=== PATIENT | male | born 1955 | race Caucasian/White ===

== ENCOUNTER 2025-04-14 08:58 | Outpatient (AMB) | payer MEDICARE, SELFPAY ==
--- OUTSIDE RECORDS SUMMARY | 2025-04-14 09:16 | XMS_ITS | Encounter Summary ---
Author Organization [facility] Address [address] [place] [address] Care Team Providers Care Communications Station Manager Name Role Phone Maximino William MD Primary Care Provider [phone] Maximino William MD Unavailable [phone] Bill Quintero Unavailable Jesus Manuel Duncan Unavailable Santhosh Lockhart Unavailable Unavailable Jasiel Eleuterio Unavailable Hemachjoyce Ali Unavailable Encounter Details Date Type Department Care Team (Late st Contact Info) Description 01/15/2012 Orders Only [facility] [address] [place], [place] [address] Maximino William MD [address] [place] [address] Social History Tobacco Use Types Packs/Day Years Used Date Smoking Tobacco: Never Assessed Sex and Gender Information Value Date Recorded Sex Assigned at Male 03/31/2024 9:17 AM EDT Legal Sex Male 11:04 PM EDT Gender Identity Male 06/03/2023 11:04 PM EDT Sexual Orientation Straight 03/31/2024 9: 17 AM EDT documented as of this encounter Procedure Notes * Maximino William - 01/15/2012 7:50 AM EDT Staff Communication MRI LS DJD - Renal cyst - will request for renal ultrasound Signatures Electronically signed by : Maximino William M.D.; Jan 15 2012 7:51AM (Author) documented in this encounter Plan of Treatment Upcoming Encounters Date Type Department Care Team (Late st Contact Info) Description 09/19/2025 9:45 AM EST Office Visit [facility] Primary Care [address] [place] [address], [place] [address] Maximino William MD [address] [place] [address] Return in about 6 months (around 09/16/2025) for Follow up, dyslipidemia, Hypertension. documented as of this encounter Visit Diagnoses Not on filedocumented in this encounter Care Teams Communications Station Manager Relationship Specialty Start Date End Date Maximino William MD [address] [place] [address], [place] [address] PCP - General 04/06/23 Maximino William MD [address] [place] [address], [place] [address] PCP - Backup PCP Internal Medicine 09/30/23 Bill Quintero [address] [place] [address] Cardiology 03/23/24 Jesus Manuel Duncan [address] [place] [address] Nephrology 03/23/24 Santhosh Lockhart [address] [place] [address] Urology 03/23/24 Eleuterio Weathers [address] [place] [address] [address] [place] [address] Optometry 10/31/24 Collette Hall [address] [place] [address] [address] [place] [address] Gastroenterology 03/16/25 documented as of this encounter
--- OUTSIDE RECORDS SUMMARY | 2025-04-14 09:16 | XMS_ITS | Clinical Summary ---
Author Organization [facility] Address [address] [place] [address] Phone Care Team Providers Care [employer] Name Role Phone Maximino William MD Primary Care Provider [phone] Allergies Active Allergy Reactions Criticality Noted Date Comments Aspergillus Fumigatis Other 07/29/2017 Watery eyes and runny nose Medications multivit-minerals/f olic acid (CENTRUM ADULTS ORAL) Take 1 tablet by mouth daily. Active L. acidophilus/Bifid. animalis (DAILY PROBIOTIC ORAL) Take 1 tablet by mouth daily with lunch. Active albuterol HFA (PROAIR HFA ; PROVENTIL HFA ; VENTOLIN HFA) 90 mcg/actuation inhaler Inhale 2 puffs by mouth every 6 hours as needed. 2 Active allopurinoL (ZYLOPRIM) 100 mg tablet Take 1 tablet (100 mg total) by mouth 1 (one) time each day. 4 Active baclofen (LIORESAL) 10 mg tablet Take 1 tablet (10 mg total) by mouth 3 (three) times a day. 8 Active buPROPion XL (WELLBUTRIN XL) 300 mg 24 hr tablet Take 450 mg by mouth 1 (one) time each day. Active cholecalciferol (VITAMIN D-3) 50 mcg (2,000 unit) tablet Take 2,000 Units by mouth daily with lunch. Active cyanocobalamin (VITAMIN B-12) 1,000 mcg tablet Take 1 tablet (1,000 mcg total) by mouth daily. Active dapagliflozin propanediol (FARXIGA) 10 mg tablet Take 1 tablet (10 mg total) by mouth 1 (one) time each day. 4 Active diazePAM (VALIUM) 5 mg tablet Take 1 tablet (5 mg total) by mouth every 8 hours as needed for anxiety. Max Daily Amount: 15 mg Active FLUoxetine (PROzac) 20 mg capsule Take 2 capsules (40 mg total) by mouth daily. Active gabapentin (NEURONTIN) 100 mg capsule Take 1 capsule (100 mg total) by mouth 2 (two) times a day. Active methocarbamoL (ROBAXIN) 750 mg tablet Take 1 tablet (750 mg total) by mouth 2 (two) times a day. Active metoprolol succinate (TOPROL-XL) 25 mg 24 hr tablet Take 1 tablet (25 mg total) by mouth 1 (one) time each day. 3 Active omeprazole (PriLOSEC) [address] capsule Take 1 capsule (40 mg total) by mouth 1 (one) time each day. Active potassium chloride (KLOR-CON M20) 20 mEq CR tablet Take 1 tablet (20 mEq total) by mouth every other day. 4 Active pravastatin (PRAVACHOL) 40 mg tablet Take 0.5 tablets (20 mg total) by mouth daily. 2 Active spironolactone (ALDACTONE) 25 mg tablet Take 1 tablet (25 mg total) by mouth 1 (one) time each day. 1 Active SUMAtriptan (IMITREX) 6 mg/0.5 mL subcutaneous solution pen Inject 0.5 mL (6 mg total) under the skin once. 1 Active torsemide (DEMADEX) 100 mg tablet Take 1 tablet (100 mg total) by mouth 1 (one) time each day. 4 Active traZODone (DESYREL) 50 mg tablet Take 1 tablet (50 mg total) by mouth daily with lunch. 3 Active mirtazapine (REMERON MELIA-TAB) 15 mg disintegrating tablet Dissolve 1 tablet (15 mg total) on top of the tongue at bedtime. Active metOLazone (ZAROXOLYN) 2.5 mg tabletIndications:p eripheral edema due to chronic heart failure Take 1 tablet (2.5 mg total) by mouth if needed. Active oxyCODONE (ROXICODONE) 5 mg immediate release tablet Take 1 tablet (5 mg total) by mouth every 6 (six) hours if needed for severe pain or moderate pain (Take 1 tablet for moderate and 2 tablets for severe pain.). Max Daily Amount: 20 mg 15 tablet Active Active Problems Problem Noted Date Diagnosed Date Chest pain 09/09/2024 Acute on chronic heart failu re with preserved ejection fraction (HFpEF) ([facility] V24, [facility] V28) 08/07/2022 High coronary artery calcium score 03/21/2022 Overview (04/26/2024): Known none obstructive ASHD in 2019 CTA coronaries Ca scroe 1382 Acute on chronic diastolic ( congestive) heart failure ([facility] V24, [facility] V28) 02/06/2022 Anemia of renal disease 11/28/2021 Secondary hyperparathyroidism ([facility] V24) 10/31 Stage 4 chronic kidney disease ([facility] V24, [facility] V28) 11/28/2021 Heart failure ([facility] V24, [facility] V28) 021 Chronic constrictive idiopathic pericarditis CHF (congestive heart failur e), NYHA class II, acute on chronic, systolic ([facility] V24, [facility] V28) 07/24/2019 CHF (congestive heart failur e), NYHA class I, acute on chronic, combined ([facility] V24, [facility] V28) 07/23/2019 Acute renal failure (ARF) ([facility] V24) 05/01/20 19 Shortness of breath 05/01/2019 Ascending aortic aneurysm ([facility] V24) 04/18/20 19 Overview (04/26/2024): 4.6 cm 2019 In March 19- chest ct scan at [facility] 4.5 cm without contrast Cervical spondylosis without myelopathy 04/18/20 19 Chronic diastolic congestive heart failure ([facility] V24, [facility] V28) 04/18/2019 Overview (04/26/2024): Last Assessment & Plan: NYHA III, warm and near euvolemic today, 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 No abnormality found on endomyocardial biopsy 02/19 -PAD this am is 31mmHg, based on this and exam I suspect he will require additional torsemide in the next few days, he will cont to monitor PAD w/ HF clinic -He completed CPET in 05/22 for risk stratification and was in low risk category with peak VO2 21.7, VE/VCO2 slope of 20. -he is on spironolactone -cost of SGLT2i and entresto has been prohibitive -he is on BB, has CAD by coronary calcium testing thus cont -we discussed his overall current state, which he feels very fatigued and has significant tremors. I encouraged him to discuss the tremors with his other drs [facility] pain management and renal. He is not interested in neurology referral at this time. They are interested in talking with our palliative care [employer] Katey and I will send her a message today. Chronic pain syndrome 04/18/2019 Hypertension 04/18/2019 Major depressive disorder 04/18/2019 FLAKO (obstructive sleep apnea) 04/18/2019 Encounters Date Type Department Care Team Description 04/13/2025 Billing Patient Not Present [facility] Outpatient CHF [address] [place] [address] Bre Ayoub PA Chronic diastolic congestive heart failure ([facility] V24, [facility] V28) (Primary Dx) 04/07/2025 Telephone [facility] Outpatient CHF [address] [place] [phone] Racheal Rodriguez RN 03/13/2025 Billing Patient Not Present [facility] Outpatient CHF [address] [place] [phone] Bre Ayoub PA 03/06/2025 Billing Patient Not Present [facility] Outpatient CHF [address] [place] [id number] Bre Ayoub PA CHF (congestive heart failure), NYHA class II, acute on chronic, systolic ([facility] V24, [facility] V28) (Primary Dx) 03/06/2025 Billing Patient Not Present [facility] Non-Invasive Cardiology [address] [place] [address] Bre Ayoub PA Chronic diastolic congestive heart failure ([facility] V24, [facility] V28) (Primary Dx) 01/30/2025 Billing Patient Not Present [facility] Outpatient CHF [address] [place] [address] Bre Ayoub PA Chronic diastolic congestive heart failure ([facility] V24, [facility] V28) (Primary Dx) from Last 3 Months Immunizations Name Administration Dates Next Due Influenza trivalent, 0.5mL, preservative free (Fluarix; FluLaval; Fluzone) ages 6mo and older (Afluria) 3 years and older 06/16/2018 Influenza trivalent, with pr eservative (Fluzone; Afluria) 6mo and older 06/02/2017 Moderna SARS-CoV-2 COVID-19, mRNA, LNP-S, preservative free 05/27/2022 Tdap Tetanus diptheria acell ular pertussis (Boostrix; Adacel) 7yo and older 12/18/2022 Surgical History Surgery Date Site/Laterality Comments BACK SURGERY PROCEDURE:BACK SURGERY;COMMENT:multiple surgeries CARPAL TUNNEL RELEASE PROCEDURE:CARPAL TUNNEL RELEASE SHOULDER ARTHROSCOPY PROCEDURE:SHOULDER ARTHROSCOPY LAMINECTOMY PROCEDURE:LAMINECTOMY LUMBAR FUSION PROCEDURE:LUMBAR FUSION OTHER SURGICAL HISTORY PROCEDURE:SACROILIAC JOINT ARTHRODESIS;COMMENT:joint stabilization THORACIC LAMINECTOMY PROCEDURE:THORACIC LAMINECTOMY;COMMENT:laminotomy for neuro trasmitter trail JOINT REPLACEMENT PROCEDURE:JOINT REPLACEMENT;COMMENT:left knee CARDIAC CATHETERIZATION 04/20/2019 N/A PROCEDURE:CARDIAC CATHETERIZATION;COMMENT:Procedure: RIGHT / LEFT HEART CATHETERIZATION NON SIMULTANEOUS; Surgeon: Jesse Patton MD; Location: [facility]; Service: Cardiology; Laterality: N/A; CARDIAC CATHETERIZATION 08/08/2019 Right PROCEDURE:CARDIAC CATHETERIZATION;COMMENT:Procedure: RIGHT / LEFT HEART CATHETERIZATION SIMULTANEOUS; Surgeon: Jesse Patton MD; Location: [facility]; Service: Cardiology; Laterality: Right; PERICARDIECTOMY 08/16/2019 N/A PROCEDURE:PERICARDIECTOMY;COMMENT: Procedure: sternotomy PERICARDECTOMY/ PERICARDIAL STRIPPING WITHOUT CABG; Surgeon: Jesse Bautista MD; Location: [facility]; Service: Cardiovascular; Laterality: N/A; OTHER SURGICAL HISTORY 08/16/2019 N/A PROCEDURE:TRANSESOPHAGEAL ECHOCARDIOGRAM (RADHA) (CONTRAST/3D PRN);COMMENT:Procedure: TRANSESOPHAGEAL ECHOCARDIOGRAPHY; Surgeon: Jesse Bautista MD; Location: [facility]; Service: Cardiovascular; Laterality: N/A; CARDIAC CATHETERIZATION 11/15/2020 Right PROCEDURE:CARDIAC CATHETERIZATION;COMMENT:Procedure: RIGHT / LEFT HEART CATHETERIZATION SIMULTANEOUS; Surgeon: Jesse Patton MD; Location: [facility]; Service: Cardiology; Laterality: Right; CARDIAC CATHETERIZATION 01/02/2022 Right PROCEDURE:CARDIAC CATHETERIZATION;COMMENT:Procedure: RIGHT / LEFT HEART CATHETERIZATION SIMULTANEOUS WITHOUT ANGIO; Surgeon: Ladan Morales MD; Location: [facility]; Service: Cardiology; Laterality: Right; HAND SURGERY PROCEDURE:HAND SURGERY SHOULDER SURGERY PROCEDURE:SHOULDER SURGERY CARDIAC CATHETERIZATION 02/27/2022 N/A PROCEDURE:CARDIAC CATHETERIZATION;COMMENT:Procedure: RIGHT HEART CATHETERIZATION / BIOPSY; Surgeon: Ladan Morales MD; Location: [facility]; Service: Cardiology; Laterality: N/A; CARDIAC CATHETERIZATION 03/21/2024 N/A PROCEDURE:CARDIAC CATHETERIZATION;COMMENT:Procedure: LEFT HEART CATHETERIZATION; Surgeon: Ladan Morales MD; Location: [facility]; Service: Cardiology; Laterality: N/A; Medical History Medical History Date Comments Hypertension DX:Hypertension Arthritis DX:Arthritis Cervicalgia DX:Cervicalgia Cervical spondylosis without myelopathy DX:Cervical spondylosis without myelopathy Lumbar post-laminectomy syndrome DX:Lumbar post-laminectomy syndrome Neuralgia and neuritis DX:Neural peace and neuritis Radiculitis DX:Radiculitis Lumbosacral spondylosis without myelopathy DX:Lumbosacral spondylosis without myelopathy DDD (degenerative disc disease), cervical DX:DDD (degenerative disc disease), cervical DDD (degenerative disc disea se), lumbosacral DX:DDD (degenerative disc di sease), lumbosacral Stenosis of cervical spine DX:St enosis of cervical spine Chronic pain disorder DX:Chronic pain disorder Hiatal hernia DX:Hiatal hernia Arrhythmia DX:Arrhythmia CHF (congestive heart failur e) ([facility] V24, [facility] V28) DX:CHF (congestive heart abiola lure) ([facility]) Hyperlipidemia DX:Hyperlipidemi a Sleep apnea DX:Sleep apnea End stage renal disease ([facility] V24, [facility] V28) DX:End stage renal disease ( [facility]) Migraine headache DX:Migraine he adache Depression DX:Depression Visual impairment DX:Visual impa irment Shingles DX:Shingles High blood pressure DX:High bloo d pressure Hyperlipidemia DX:Hyperlipidemi a DAMIAN (dyspnea on exertion) DX:DAMIAN (dyspnea on exertion) Angina pectoris ([facility] V24) DX :Angina pectoris ([facility]) Coronary artery disease Family History Medical History Relation Name Comments Heart disease Father Hypertension Mother Relation Name Status Comments Father Mother Social History Tobacco Use Types Packs/Day Years Used Date Smoking Tobacco: Former Cigarettes Q uit: 08/31/1976 Smokeless Tobacco: Never Alcohol Use Standard Drinks/Week Comments Yes 0 (1 standard drink = 0.6 oz pur e alcohol) Interpersonal Safety Answer Date Record ed Physical Abuse 09/10/2024 Verbal Abuse 09/10/2024 Sex and Gender Information Value Date Recorded Sex Assigned at Male 08/19/2024 6:43 PM EST Legal Sex Male 9:58 AM EST Gender Identity Male 09/09/2024 10:48 AM EST Sexual Orientation Straight 09/09/2024 10 :48 AM EST Obstetrics History Last Filed Vital Signs Vital Sign Reading Time Taken Comments Blood Pressure 112/70 09/11/2024 12:30 PM EST Pulse 79 09/11/2024 12:30 PM EST Temperature 36.5 C (97.7 F) 09/11/2024 12:30 PM EST Respiratory Rate 17 09/11/2024 12:30 PM EST Oxygen Saturation 93% 09/11/2024 10:20 AM EST Inhaled Oxygen Concentration - - Weight 99.8 kg (220 lb) 09/09/2024 12:14 PM EST Height 165.1 cm (5' 5 ) 09/09/2024 12:14 PM EST Body Mass Index 36.61 09/09/2024 12:14 PM EST Plan of Treatment Health Maintenance Due Date Last Done Comments Diabetes: Annual Foot Exam 1964 Diabetes: Annual Retina Eye Exam 1964 Hepatitis A Vaccines (1 of 2 - Risk 2-dose series) 1973 Zoster Vaccines (1 of 2) 1973 RSV Immunization Adult Patients (1 - Risk 60-74 years 1-dose series) 2014 Abdominal Aortic Aneurysm (AAA) Screen 08/07/2022 Cholesterol Screening (Lipid Panel) 08/07/2022 Colorectal Cancer Screening: Colonoscopy 08/07/2022 Hepatitis C Screening 08/07/2022 Medicare Annual Wellness Visit 08/07/2022 Social Influencers of Health Screening 08/07/2022 COVID-19 Vaccine ( season) 2024 05/27/2022, 08/20/2021, 11/25/2020, Additional history exists Diabetes: Annual Urine Albumin-Creatinine Ratio (uACR) 08/19/2024 Depression Screening 08/31/2024 Diabetes: Blood Sugar Control Test (HGBA1C) 04/25/2025 10/26/2024, 04/29/2024, 11/13/2020, Additional history exists Influenza Vaccine (#1) 2025 , 05/29/2021, 05/27/2020, Additional history exists Diabetes: Annual GFR (Glomerular Filtration Rate) 09/11/2025 09/11/2024, 09/10/2024, 09/09/2024, Additional history exists Falls Risk Assessment 09/11/2025 09/11/2024 Hypertension/CHF/CAD Annual BMP Blood Test 09/11/2025 09/11/2024, 09/10/2024, 09/09/2024, Additional history exists DTaP,Tdap,and Td Vaccines (4 - Td or Tdap) 12/18/2032 12/18/2022, 01/23/2015, 11/08/2004 Pneumococcal Vaccine: 50+ Years Completed 05/29/2021, 04/19/2020 HIB Vaccines Aged Out No longer eligi ble based on patient's age to complete this topic HPV Vaccines Aged Out No longer eligi ble based on patient's age to complete this topic Hepatitis B Vaccines Aged Out No long er eligible based on patient's age to complete this topic IPV Vaccines Aged Out No longer eligi ble based on patient's age to complete this topic MMR Vaccines Aged Out No longer eligi ble based on patient's age to complete this topic Meningococcal ACWY Vaccine Aged Out N o longer eligible based on patient's age to complete this topic Meningococcal B Vaccine Aged Out No l onger eligible based on patient's age to complete this topic RSV Immunization Patients Under 20 months Aged Out No longer eligible based on patient's age to complete this topic Varicella Vaccines Aged Out No longer eligible based on patient's age to complete this topic Medical Devices Implanted Type Area Bowling Ball Engraver Device Identifier Shelf Expiration Date Model / Serial / Lot Device Angio-Seal Vip .035in 70cm 6fr [employer]uelink [employer] - [id number] Implanted:2018 (Quantity not on file) vocaltap- [employer] [id number] / / Device Angio-Seal Vip .038in 70cm 8fr Hemostatic Closure - [id number] Implanted:2020 (Quantity not on file) vocaltap- [employer] [id number] / / System Cardiac Cardiomems Pulmonary Artery Sensor Delivery - [id number] Implanted:Qty: 1 on 01/29/[address]21 [address] ERCI CRMD++[id number]+ABBT/ST JU CM PATIENT SYSTEM / / Procedures Procedure Name Priority Date/Time Associated Diagnosis Comments BASIC METABOLIC PANEL Routine 09/11/2024 8:46 AM EST HEMOGLOBIN A1C Routine 11/13/2020 from Last 3 Months or Most Recently Relevant to Health Maintenance Results * (ABNORMAL) Basic metabolic panel (09/11/2024 8:46 AM EST) Sodium 133(L) 135 - 145 mmol/L LAB CHEMISTRY METHOD 09/11/2024 9:51 AM EST [facility] Potassium 4.1 3.5 - 5.1 mmol/L LAB CHEMISTRY METHOD 09/11/2024 9:51 AM EST [facility] Chloride 98 98 - 107 mmol/L LAB CHEMISTRY METHOD 09/11/2024 9:51 AM EST [facility] CO2 23(L) 24 - 32 mmol/L LAB CHEMISTRY METHOD 09/11/2024 9:51 AM [facility] Anion Gap 12 5 - 14 LAB CHEMISTRY METHOD 09/11/2024 9:51 AM [facility] Glucose 102 70 - 199 mg/dL LAB CHEMISTRY METHOD 09/11/2024 9:51 AM [facility] BUN 24(H) 9 - 20 mg/dL LAB CHEMISTRY METHOD 09/11/2024 9:51 AM [facility] Creatinine 1.30 0.70 - 1.30 mg/dL LAB CHEMISTRY METHOD 09/11/2024 9:51 AM [facility] eGFR 59(L) >=60 mL/min/1. 73m2 LAB CHEMISTRY METHOD 09/11/2024 9:51 AM [facility] Comment:Calculation based on the Chronic Kidney Disease Epidemiology Collaboration (CKD-EPI) equation refit without adjustment for race. BUN/Creatinine Ratio 18.5 12.0 - 20.0 LAB CHEMISTRY METHOD 09/11/2024 9:51 AM [facility] Calcium 8.7 8.4 - 10.2 mg/dL LAB CHEMISTRY METHOD 09/11/2024 9:51 AM [facility] Blood Venous blood specimen / Unknown Venipuncture / Unknown 09/11/2024 8:46 AM EST 09/11/2024 9:07 AM EST Yoav Pelaez MD LAB BLOOD ORDERABLES Final Res ult [facility] [address] [place] [address], [place] [phone] * Hemoglobin A1c (11/13/2020) Hemoglobin A1C 5.1 <=5.7 % Blood Venous blood specimen / Unknown us Historical Provider LAB BLOOD ORDERABLES Ignacia l Result from Last 3 Months or Most Recently Relevant to Health Maintenance Insurance [employer]AGE Advance Directives Documents on File Type Date Recorded 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 Do not modify or discontinue any currently active code status orders. * Full Code - Default Date Activated Date Inactivated Comments 09/09/2024 6:14 PM 09/09/2024 11:55 PM This is ord er is used when code status has not been discussed with the patient, or code status is otherwise unknown/unconfirmed To update the patient's code status, place a code status order. Do not modify or discontinue any currently active code status orders. Care Teams [employer] Relationship Specialty Start Date End Date Maximino William MD PCP - General Internal Medicine 07/20/17
--- OUTSIDE RECORDS SUMMARY | 2025-04-14 09:16 | XMS_ITS | Encounter Summary ---
Author Organization [facility] Address [address] [facility] [address] [place] [address] Phone Care Team Providers Care Beverage Specialist Name Role Phone Maximino William MD Primary Care Provider [phone] Encounter Details Date Type Department Care Team (Late st Contact Info) Description 11/17/2014 Scanned Document [facility] [address] [place] [address] Victor M Armando, DO [address] [id number] Social History Tobacco Use Types Packs/Day Years Used Date Smoking Tobacco: Never Alcohol Use Standard Drinks/Week Comments Not Asked 0 (1 standard drink = 0.6 oz pur e alcohol) Sex and Gender Information Value Date Recorded Sex Assigned at Male 07/16/2020 9:06 AM EST Legal Sex Male 11:09 AM EDT Gender Identity Male 07/16/2020 9:06 AM EST Sexual Orientation Not on file documented as of this encounter Plan of Treatment Not on file documented as of this encounter Visit Diagnoses Not on filedocumented in this encounter Care Teams Beverage Specialist Relationship Specialty Start Date End Date Maximino William MD [address] [place] [address] PCP - General Internal Medicine 11/13/14 documented as of this encounter
--- OUTSIDE RECORDS SUMMARY | 2025-04-14 09:16 | XMS_ITS ---
Author Name [facility] Organization Unknown Results Test Name/Text Value Interpretation Date Range Source UM. ALB/CREAT RATIO 4.0 03/17/20 2 5 0 - 30 [facility] URINE MICROALBUMIN <12 5 0 - 23 [facility] URINE CREATININE 74.0 mg/dL 5 60 - 200 [facility] 23 KD BAND,IGG Nonreactive Normal 5 - [facility] LYME DISEASE AB(IGG),BLOT Negative Normal 5 - [facility] 30 KD BAND,IGG Nonreactive Normal 5 - [facility] 66 KD BAND,IGG Nonreactive Normal 5 - [facility] 41 KD BAND,IGG Nonreactive Normal 5 - [facility] LYME DISEASE AB(IGM),BLOT Negative Normal 5 - [facility] 45 KD BAND,IGG Nonreactive Normal 5 - [facility] 18 KD BAND,IGG Reactive Abnormal 5 - [facility] 41 KD BAND,IGM Nonreactive Normal 5 - [facility] 28 KD BAND,IGG Nonreactive Normal 5 - [facility] 39 KD BAND,IGM Nonreactive Normal 5 - [facility] 39 KD BAND,IGG Nonreactive Normal 5 - [facility] 93 KD BAND,IGG Nonreactive Normal 5 - [facility] 58 KD BAND,IGG Nonreactive Normal 5 - [facility] 23 KD BAND,IGM Nonreactive Normal 5 - [facility] GLYCOHEMOGLOBIN (A1C) 5.3 % Normal 5 4 - 5.6 [facility] ABSOLUTE BASO 0.0 K/uL Normal 5 0 - 0.2 [facility] IMMATURE GRANULOCYTES 0.0 % Normal 5 0 - 0.45 [facility] MONOCYTES 11.0 % Normal 5 0 - 12 [facility] MPV 11.0 fL Normal 5 8 - 12 [facility] RDW 13.3 % Normal 5 11.1 - 13.3 [facility] ABSOLUTE IMMATURE GRANULOCYTES 0.0 K/uL Normal 5 0 - 0.3 [facility] EOSINOPHILS 3.0 % Normal 5 0 - 6 [facility] LYMPHS 21.0 % Normal 5 16 - 50 [facility] ABSOLUTE GRANULOCYTES 5.3 K/uL Normal 5 2.2 - 7.3 [facility] ABSOLUTE MONOS 0.9 K/uL Normal 5 0.2 - 1.5 [facility] WBC 8.2 K/uL Normal 5 3.7 - 10.3 [facility] HGB 16.5 g/dL Normal 5 13.5 - 18 [facility] MCH 32.0 PG Normal 5 27 - 34 [facility] ABSOLUTE EOS 0.2 K/uL Normal 5 0 - 0.7 [facility] ABSOLUTE NUCLEATED RBC 0.0 K/uL Normal 5 0 - 0.012 [facility] BASOPHILS 1.0 % Normal 5 0 - 2 [facility] MCV 98.0 fL Normal 5 83 - 102 [facility] ABSOLUTE LYMPHS 1.7 K/uL Normal 5 1.5 - 4.9 [facility] PLATELET COUNT 247.0 K/uL Normal 5 150 - 480 [facility] MCHC 32.5 g/dL Normal 5 31 - 36 [facility] HCT 50.8 % Normal 5 40 - 52 [facility] RBC 5.2 M/uL Normal 5 4.3 - 6 [facility] NUCLEATED RBC 0.0 % Normal 5 0 - 0.2 [facility] GRANULOCYTES 65.0 % Normal 5 23 - 78 [facility] GFRE 70.0 Normal 5 60 - [facility] T4 FREE 1.4 ng/dL Normal 5 0.89 - 1.76 [facility] CHOLESTEROL 162.0 mg/dL Normal 5 - 200 [facility] LDL 84.0 mg/dL Normal 5 - 160 [facility] TRIGLYCERIDE 158.0 mg/dL Above high normal 5 - 150 [facility] HDL 46.0 mg/dL Below low normal 5 60 - [facility] TSH 0.84 uIU/mL Normal 5 0.55 - 4.78 [facility] PHOSPHOROUS 3.0 mg/dL Normal 5 2.4 - 5.1 [facility] MAGNESIUM 2.11 mg/dL Normal 5 1.6 - 2.6 [facility] CALCIUM 9.3 mg/dL Normal 5 8.7 - 10.4 [facility] BUN/CREAT.RATIO 15.3 Normal 5 [facility] BUN 17.0 mg/dL Normal 5 9 - 23 [facility] PROTEIN, TOTAL 6.7 g/dL Normal 5 5.7 - 8.2 [facility] ALKALINE PHOSPHATASE 109.0 U/L Normal 02 5 45 - 129 [facility] SODIUM 141.0 mmol/L Normal 5 136 - 145 [facility] CHLORIDE 103.0 mmol/L Normal 5 98 - 107 [facility] ALBUMIN 4.3 g/dL Normal 5 3.2 - 4.8 [facility] GLUCOSE 89.0 mg/dL Normal 5 74 - 106 [facility] ALT (SGPT) 22.0 U/L Normal 5 10 - 49 [facility] CO2 31.0 mmol/L Normal 5 20 - 31 [facility] A/G RATIO 1.8 g/dL Normal 5 [facility] AST (SGOT) 27.0 U/L Normal 5 0 - 34 [facility] POTASSIUM SERUM 4.2 mmol/L Normal 5 3.5 - 5.1 [facility] BILIRUBIN,TOTAL 0.6 mg/dL Normal 5 0.3 - 1.2 [facility] CREATININE 1.11 mg/dL Normal 5 0.7 - 1.3 [facility] GLOBULIN 2.4 g/dL Normal 5 2.2 - 3.5 [facility] PATIENT FASTING? NO Normal 5 [facility] EPI CELLS OCCASIONAL Normal 5 [facility] WBC 1.0 /HPF Above high normal 5 0 - 0 [facility] RBC 0.0 /HPF Normal 5 0 - 0 [facility] COLOR Yellow Normal 5 - [facility] PROTEIN Negative Normal 5 - [facility] BILIRUBIN Negative Normal 5 - [facility] GLUCOSE >=1000 Critically abnormal 12/21/19 2 5 - [facility] BLOOD Negative Normal 5 - [facility] KETONES Negative Normal 5 - [facility] NITRITE Negative Normal 5 - [facility] LEUK. ESTERASE Negative Normal 5 - [facility] APPEARANCE Clear Normal 5 - [facility] SPECIFIC GRAVITY 1.02 Normal 5 1.005 - 1.03 [facility] UROBILINOGEN 0.2 mg/dL Normal 5 0 - 1 [facility] PH 7.0 Normal 5 5 - 8 [facility] ALBUMIN 4.1 g/dL Normal 5 3.2 - 4.8 [facility] PHOSPHOROUS 2.9 mg/dL Normal 5 2.4 - 5.1 [facility] CO2 34.0 mmol/L Above high normal 5 20 - 31 [facility] POTASSIUM SERUM 5.4 mmol/L Above high normal 02 5 3.5 - 5.1 [facility] BUN 26.0 mg/dL Above high normal 5 9 - 23 [facility] SODIUM 135.0 mmol/L Below low normal 5 136 - 145 [facility] CHLORIDE 99.0 mmol/L Normal 5 98 - 107 [facility] CREATININE 1.2 mg/dL Normal 5 0.7 - 1.3 [facility] CALCIUM 9.6 mg/dL Normal 5 8.7 - 10.4 [facility] GLUCOSE 97.0 mg/dL Normal 5 74 - 106 [facility] PATIENT FASTING? YES Normal 5 [facility] MAGNESIUM 2.22 mg/dL Normal 5 1.6 - 2.6 [facility] GFRE 64.0 Normal 5 60 - [facility] CO2 30.0 mmol/L Normal 5 20 - 31 [facility] CREATININE 1.27 mg/dL Normal 5 0.7 - 1.3 [facility] POTASSIUM SERUM 5.6 mmol/L Above high normal 02 5 3.5 - 5.1 [facility] CHLORIDE 102.0 mmol/L Normal 5 98 - 107 [facility] GLUCOSE 93.0 mg/dL Normal 5 74 - 106 [facility] BILIRUBIN,TOTAL 0.7 mg/dL Normal 5 0.3 - 1.2 [facility] ALKALINE PHOSPHATASE 183.0 U/L Above high normal 5 45 - 129 [facility] ALBUMIN 4.5 g/dL Normal 5 3.2 - 4.8 [facility] BUN/CREAT.RATIO 13.4 Normal 5 [facility] CALCIUM 10.2 mg/dL Normal 5 8.7 - 10.4 [facility] SODIUM 139.0 mmol/L Normal 5 136 - 145 [facility] BUN 17.0 mg/dL Normal 5 9 - 23 [facility] GLOBULIN 2.3 g/dL Normal 5 2.2 - 3.5 [facility] A/G RATIO 2.0 g/dL Normal 5 [facility] AST (SGOT) 23.0 U/L Normal 5 0 - 34 [facility] PROTEIN, TOTAL 6.8 g/dL Normal 5 5.7 - 8.2 [facility] ALT (SGPT) 28.0 U/L Normal 5 10 - 49 [facility] PATIENT FASTING? NO Normal 5 [facility] GFRE 60.0 Normal 5 60 - [facility] ABSOLUTE NUCLEATED RBC 0.0 K/uL Normal 5 0 - 0.012 [facility] ABSOLUTE IMMATURE GRANULOCYTES 0.1 K/uL Normal 5 0 - 0.3 [facility] ABSOLUTE GRANULOCYTES 5.1 K/uL Normal 5 2.2 - 7.3 [facility] HCT 52.6 % Above high normal 5 40 - 52 [facility] ABSOLUTE EOS 0.1 K/uL Normal 5 0 - 0.7 [facility] RDW 13.8 % Above high normal 5 11.1 - 13.3 [facility] MPV 11.0 fL Normal 5 8 - 12 [facility] MCV 99.0 fL Normal 5 83 - 102 [facility] NUCLEATED RBC 0.0 % Normal 5 0 - 0.2 [facility] MCH 33.0 PG Normal 5 27 - 34 [facility] MONOCYTES 11.0 % Normal 5 0 - 12 [facility] MCHC 33.5 g/dL Normal 5 31 - 36 [facility] HGB 17.6 g/dL Normal 5 13.5 - 18 [facility] ABSOLUTE LYMPHS 1.4 K/uL Below low normal 11/23/19 2 5 1.5 - 4.9 [facility] ABSOLUTE BASO 0.1 K/uL Normal 5 0 - 0.2 [facility] WBC 7.7 K/uL Normal 5 3.7 - 10.3 [facility] RBC 5.32 M/uL Normal 5 4.3 - 6 [facility] BASOPHILS 1.0 % Normal 5 0 - 2 [facility] LYMPHS 19.0 % Normal 5 16 - 50 [facility] GRANULOCYTES 67.0 % Normal 5 23 - 78 [facility] PLATELET COUNT 248.0 K/uL Normal 5 150 - 480 [facility] ABSOLUTE MONOS 0.8 K/uL Normal 5 0.2 - 1.5 [facility] IMMATURE GRANULOCYTES 1.0 % Above high normal 5 0 - 0.45 [facility] EOSINOPHILS 2.0 % Normal 5 0 - 6 [facility] GLYCOHEMOGLOBIN (A1C) 5.4 % Normal 5 4 - 5.6 [facility] TSH 0.58 uIU/mL Normal 5 0.55 - 4.78 [facility] LDL 109.0 mg/dL Normal 5 - 160 [facility] TRIGLYCERIDE WITH LDLD REFLEX 120.0 mg/dL Normal 5 - 150 [facility] CHOLESTEROL 197.0 mg/dL Normal 5 - 200 [facility] HDL 64.0 mg/dL Above high normal 5 40 - 60 [facility] GFRE 53.0 Below low normal 5 60 - [facility] ALKALINE PHOSPHATASE 165.0 U/L Above high normal 5 45 - 129 [facility] SODIUM 139.0 mmol/L Normal 5 136 - 145 [facility] CHLORIDE 98.0 mmol/L Normal 5 98 - 107 [facility] GLOBULIN 2.1 g/dL Below low normal 5 2.2 - 3.5 [facility] CREATININE 1.41 mg/dL Above high normal 5 0.7 - 1.3 [facility] ALT (SGPT) 34.0 U/L Normal 5 10 - 49 [facility] POTASSIUM SERUM 3.9 mmol/L Normal 5 3.5 - 5.1 [facility] BUN/CREAT.RATIO 14.2 Normal 5 [facility] ALBUMIN 4.7 g/dL Normal 5 3.2 - 4.8 [facility] A/G RATIO 2.2 g/dL Normal 5 [facility] BILIRUBIN,TOTAL 0.9 mg/dL Normal 5 0.3 - 1.2 [facility] GLUCOSE 91.0 mg/dL Normal 5 74 - 106 [facility] PROTEIN, TOTAL 6.8 g/dL Normal 5 5.7 - 8.2 [facility] CO2 32.0 mmol/L Above high normal 5 20 - 31 [facility] CALCIUM 9.7 mg/dL Normal 5 8.7 - 10.4 [facility] BUN 20.0 mg/dL Normal 5 9 - 23 [facility] AST (SGOT) 25.0 U/L Normal 5 0 - 34 [facility] PATIENT FASTING? YES Normal 5 [facility] PRO B-TYPE NATRIURETIC PEPTIDE 110.0 pg/mL Normal 5 0 - 900 [facility] GFRE 67.0 Normal 5 60 - [facility] A/G RATIO 1.7 g/dL Normal 5 [facility] GLOBULIN 2.6 g/dL Normal 5 2.2 - 3.5 [facility] ALT (SGPT) 29.0 U/L Normal 5 10 - 49 [facility] CO2 36.0 mmol/L Above high normal 5 20 - 31 [facility] BILIRUBIN,TOTAL 1.0 mg/dL Normal 5 0.3 - 1.2 [facility] GLUCOSE 92.0 mg/dL Normal 5 74 - 106 [facility] POTASSIUM SERUM 4.4 mmol/L Normal 5 3.5 - 5.1 [facility] CREATININE 1.15 mg/dL Normal 5 0.7 - 1.3 [facility] PROTEIN, TOTAL 7.1 g/dL Normal 5 5.7 - 8.2 [facility] BUN 27.0 mg/dL Above high normal 5 9 - 23 [facility] CHLORIDE 96.0 mmol/L Below low normal 5 98 - 107 [facility] ALBUMIN 4.5 g/dL Normal 5 3.2 - 4.8 [facility] CALCIUM 9.7 mg/dL Normal 5 8.7 - 10.4 [facility] SODIUM 138.0 mmol/L Normal 5 136 - 145 [facility] BUN/CREAT.RATIO 23.5 Normal 5 [facility] ([facility] 20.0 U/L Normal 5 0 - 34 [facility] ALKALINE PHOSPHATASE 147.0 U/L Above high normal 5 45 - 129 [facility] PATIENT FASTING? NO Normal 5 [facility] Troponin I SerPl HS-mCnc 13.0 ng/L Normal 5 0 - 20 [facility] Sodium SerPl-sCnc 133.0 mmol/L Below low normal 5 135 - 145 [facility] BUN/Creat SerPl 18.5 Normal 5 12 - 20 [facility] Calcium SerPl-mCnc 8.7 mg/dL Normal 5 8.4 - 10.2 [facility] eGFRcr SerPlBld CKD-EPI 2020 59.0 mL/min/1.73m2 Below low normal 5 - [facility] BUN SerPl-mCnc 24.0 mg/dL Above high normal 09/11/19 2 5 9 - 20 [facility] Anion Gap SerPl-sCnc 12.0 Normal 02 5 5 - 14 [facility] Glucose SerPl-mCnc 102.0 mg/dL Normal 5 70 - 199 [facility] Potassium SerPl-sCnc 4.1 mmol/L Normal 02 5 3.5 - 5.1 [facility] Chloride SerPl-sCnc 98.0 mmol/L Normal 09/11/19 2 5 98 - 107 [facility] CO2 SerPl-sCnc 23.0 mmol/L Below low normal 5 24 - 32 [facility] Creat SerPl-mCnc 1.3 mg/dL Normal 5 0.7 - 1.3 [facility] Magnesium SerPl-mCnc 2.0 mg/dL Normal 02 5 1.7 - 2.8 [facility] Basophils/leuk NFr Bld Auto 0.6 % Normal 5 0 - 2 [facility] RBC # Bld Auto 4.84 M/mcL Normal 5 4.7 - 6 [facility] Hgb Bld-mCnc 15.7 g/dL Normal 5 13.5 - 18 [facility] MCH RBC Qn Auto 32.4 pcg Normal 5 25 - 33 [facility] Platelet # Bld Auto 219.0 K/mcL Normal 09/11/19 2 5 150 - 450 [facility] Monocytes # Bld Auto 0.8 K/mcL Normal 02 5 0 - 0.8 [facility] Lymphocytes/leuk NFr Bld Auto 20.5 % Normal 5 20 - 48 [facility] Eosinophil/leuk NFr Bld Auto 3.0 % Normal 5 0 - 6 [facility] Basophils # Bld Auto 0.1 K/mcL Normal 02 5 0 - 0.2 [facility] WBC # Bld Auto 9.5 K/mcL Normal 5 4 - 10.5 [facility] MCHC RBC Auto-mCnc 33.8 g/dL Normal 5 32 - 36 [facility] PMV Bld Auto 8.7 FL Normal 5 7.4 - 11.4 [facility] MCV RBC Auto 95.8 FL Normal 5 78 - 100 [facility] RDW RBC Auto-Rto 14.5 % Normal 5 12.1 - 17.7 [facility] Eosinophil # Bld Auto 0.3 K/mcL Normal 5 0 - 0.5 [facility] Monocytes/leuk NFr Bld Auto 8.6 % Normal 5 2 - 12 [facility] Neutrophils # Bld Auto 6.4 K/mcL Normal 5 1.8 - 7.8 [facility] Hct VFr Bld Auto 46.4 % Normal 5 40 - 54 [facility] Neutrophils/leuk NFr Bld Auto 67.3 % Normal 5 44 - 74 [facility] Lymphocytes # Bld Auto 1.9 K/mcL Normal 5 1 - 3.2 [facility] Troponin I SerPl HS-mCnc 16.0 ng/L Normal 5 0 - 20 [facility] Troponin I SerPl HS-mCnc 16.0 ng/L Normal 5 0 - 20 [facility] Troponin I SerPl HS-mCnc 19.0 ng/L Normal 5 0 - 20 [facility] Troponin I SerPl HS-mCnc 20.0 ng/L Normal 5 0 - 20 [facility] Troponin I SerPl HS-mCnc 21.0 ng/L Above high normal 5 0 - 20 [facility] Phosphate SerPl-mCnc 4.2 mg/dL Normal 02 5 2.5 - 4.5 [facility] Magnesium SerPl-mCnc 2.2 mg/dL Normal 02 5 1.7 - 2.8 [facility] Creat SerPl-mCnc 1.2 mg/dL Normal 5 0.7 - 1.3 [facility] Glucose SerPl-mCnc 90.0 mg/dL Normal 5 70 - 99 [facility] eGFRcr SerPlBld CKD-EPI 2020 65.0 mL/min/1.73m2 Normal 5 - [facility] ALP SerPl-cCnc 100.0 unit/L Normal 5 34 - 104 [facility] Anion Gap SerPl-sCnc 7.0 Normal 02 5 5 - 14 [facility] Bilirub SerPl-mCnc 0.9 mg/dL Normal 5 0.3 - 1 [facility] AST SerPl-cCnc 24.0 unit/L Normal 5 5 - 40 [facility] CO2 SerPl-sCnc 26.0 mmol/L Normal 5 24 - 32 [facility] Sodium SerPl-sCnc 136.0 mmol/L Normal 5 135 - 145 [facility] Prot SerPl-mCnc 5.7 g/dL Below low normal 09/10/19 2 5 6.4 - 8.5 [facility] Potassium SerPl-sCnc 4.1 mmol/L Normal 02 5 3.5 - 5.1 [facility] Albumin SerPl-mCnc 3.9 g/dL Normal 5 3.5 - 5 [facility] ALT SerPl-cCnc 17.0 unit/L Normal 5 7 - 52 [facility] Chloride SerPl-sCnc 103.0 mmol/L Normal 09/10/19 2 5 98 - 107 [facility] BUN SerPl-mCnc 18.0 mg/dL Normal 5 9 - 20 [facility] BUN/Creat SerPl 15.0 Normal 5 12 - 20 [facility] Calcium SerPl-mCnc 8.3 mg/dL Below low normal 09/10 5 8.4 - 10.2 [facility] Monocytes # Bld Auto 0.7 K/mcL Normal 02 5 0 - 0.8 [facility] PMV Bld Auto 8.7 FL Normal 5 7.4 - 11.4 [facility] Monocytes/leuk NFr Bld Auto 9.2 % Normal 5 2 - 12 [facility] MCH RBC Qn Auto 33.1 pcg Above high normal 02 5 25 - 33 [facility] Eosinophil/leuk NFr Bld Auto 4.1 % Normal 5 0 - 6 [facility] MCV RBC Auto 96.7 FL Normal 5 78 - 100 [facility] MCHC RBC Auto-mCnc 34.2 g/dL Normal 5 32 - 36 [facility] WBC # Bld Auto 8.1 K/mcL Normal 5 4 - 10.5 [facility] Hct VFr Bld Auto 45.0 % Normal 5 40 - 54 [facility] Hgb Bld-mCnc 15.4 g/dL Normal 5 13.5 - 18 [facility] Neutrophils/leuk NFr Bld Auto 60.7 % Normal 5 44 - 74 [facility] RDW RBC Auto-Rto 14.8 % Normal 5 12.1 - 17.7 [facility] Basophils/leuk NFr Bld Auto 0.5 % Normal 5 0 - 2 [facility] RBC # Bld Auto 4.65 M/mcL Below low normal 5 4.7 - 6 [facility] Lymphocytes/leuk NFr Bld Auto 25.5 % Normal 5 20 - 48 [facility] Platelet # Bld Auto 197.0 K/mcL Normal 09/10/19 2 5 150 - 450 [facility] Lymphocytes # Bld Auto 2.1 K/mcL Normal 5 1 - 3.2 [facility] Eosinophil # Bld Auto 0.3 K/mcL Normal 5 0 - 0.5 [facility] Neutrophils # Bld Auto 4.9 K/mcL Normal 5 1.8 - 7.8 [facility] Basophils # Bld Auto 0.0 K/mcL Normal 02 5 0 - 0.2 [facility] Troponin I SerPl HS-mCnc 26.0 ng/L Above high normal 5 0 - 20 [facility] Troponin I SerPl HS-mCnc 37.0 ng/L Above high normal 5 0 - 20 [facility] Leukocyte esterase Ur Ql Strip Negative Normal 5 - [facility] Ketones Ur-mCnc Small Abnormal 5 - [facility] Prot Ur Strip-mCnc Negative Normal 5 - [facility] Nitrite Ur Ql Negative Normal 5 - [facility] pH Ur 7.0 pH Normal 5 5 - 8 [facility] Color Ur Yellow Normal 5 - [facility] Sp Gr Ur 1.02 Normal 5 1.005 - 1.03 [facility] Clarity Ur Clear Normal 5 - [facility] Hgb Ur Ql Negative Normal 5 - [facility] Glucose Ur Ql >500 Abnormal 5 - [facility] CRP SerPl-mCnc <0.5 mg/dL Normal 5 - [facility] ESR Bld Qn Westrgrn 12.0 mm/hr Normal 09/09/19 2 5 0 - 15 [facility] Troponin I SerPl HS-mCnc 49.0 ng/L Above high normal 5 0 - 20 [facility] BNP SerPl-mCnc 335.0 pcg/mL Above high normal 09/09/19 2 5 0 - 100 [facility] Glucose SerPl-mCnc 91.0 mg/dL Normal 5 70 - 199 [facility] Chloride SerPl-sCnc 111.0 mmol/L Above high normal 5 98 - 107 [facility] Anion Gap SerPl-sCnc 9.0 Normal 02 5 5 - 14 [facility] eGFRcr SerPlBld CKD-EPI 2020 100.0 mL/min/1.73m2 Normal 5 - [facility] Calcium SerPl-mCnc 8.7 mg/dL Normal 5 8.4 - 10.2 [facility] Potassium SerPl-sCnc 4.7 mmol/L Normal 02 5 3.5 - 5.1 [facility] Creat SerPl-mCnc 0.7 mg/dL Normal 5 0.7 - 1.3 [facility] Sodium SerPl-sCnc 142.0 mmol/L Normal 5 135 - 145 [facility] BUN/Creat SerPl 18.6 Normal 5 12 - 20 [facility] CO2 SerPl-sCnc 22.0 mmol/L Below low normal 5 24 - 32 [facility] BUN SerPl-mCnc 13.0 mg/dL Normal 5 9 - 20 [facility] Magnesium SerPl-mCnc 2.1 mg/dL Normal 02 5 1.7 - 2.8 [facility] MCV RBC Auto 95.6 FL Normal 5 78 - 100 [facility] PMV Bld Auto 8.8 FL Normal 5 7.4 - 11.4 [facility] Monocytes # Bld Auto 0.6 K/mcL Normal 02 5 0 - 0.8 [facility] Hgb Bld-mCnc 16.1 g/dL Normal 5 13.5 - 18 [facility] MCHC RBC Auto-mCnc 34.4 g/dL Normal 5 32 - 36 [facility] WBC # Bld Auto 9.4 K/mcL Normal 5 4 - 10.5 [facility] Lymphocytes/leuk NFr Bld Auto 11.3 % Below low normal 5 20 - 48 [facility] RDW RBC Auto-Rto 14.0 % Normal 5 12.1 - 17.7 [facility] Basophils # Bld Auto 0.0 K/mcL Normal 02 5 0 - 0.2 [facility] Platelet # Bld Auto 230.0 K/mcL Normal 09/09/19 2 5 150 - 450 [facility] Lymphocytes # Bld Auto 1.1 K/mcL Normal 5 1 - 3.2 [facility] Basophils/leuk NFr Bld Auto 0.4 % Normal 5 0 - 2 [facility] MCH RBC Qn Auto 32.9 pcg Normal 5 25 - 33 [facility] Eosinophil # Bld Auto 0.0 K/mcL Normal 5 0 - 0.5 [facility] Monocytes/leuk NFr Bld Auto 6.7 % Normal 5 2 - 12 [facility] Neutrophils # Bld Auto 7.7 K/mcL Normal 5 1.8 - 7.8 [facility] Neutrophils/leuk NFr Bld Auto 81.1 % Above high normal 5 44 - 74 [facility] Eosinophil/leuk NFr Bld Auto 0.5 % Normal 5 0 - 6 [facility] RBC # Bld Auto 4.89 M/mcL Normal 5 4.7 - 6 [facility] Hct VFr Bld Auto 46.8 % Normal 5 40 - 54 [facility] BNP SerPl-mCnc 67.0 pcg/mL Normal 4 0 - 100 [facility] Troponin I SerPl HS-mCnc 9.0 ng/L Normal 4 0 - 20 [facility] CO2 SerPl-sCnc 32.0 mmol/L Normal 4 24 - 32 [facility] BUN SerPl-mCnc 21.0 mg/dL Above high normal 08/19/20 2 4 9 - 20 [facility] Sodium SerPl-sCnc 140.0 mmol/L Normal 4 135 - 145 [facility] Calcium SerPl-mCnc 9.7 mg/dL Normal 4 8.4 - 10.2 [facility] Potassium SerPl-sCnc 3.7 mmol/L Normal 02 4 3.5 - 5.1 [facility] Anion Gap SerPl-sCnc 7.0 Normal 02 4 5 - 14 [facility] Glucose SerPl-mCnc 103.0 mg/dL Normal 4 70 - 199 [facility] eGFRcr SerPlBld CKD-EPI 2020 75.0 mL/min/1.73m2 Normal 4 - [facility] Chloride SerPl-sCnc 101.0 mmol/L Normal 08/19/20 2 4 98 - 107 [facility] BUN/Creat SerPl 19.6 Normal 4 12 - 20 [facility] Creat SerPl-mCnc 1.07 mg/dL Normal 4 0.7 - 1.3 [facility] Eosinophil/leuk NFr Bld Auto 0.6 % Normal 4 0 - 6 [facility] Platelet # Bld Auto 289.0 K/mcL Normal 08/19/20 2 4 150 - 450 [facility] Neutrophils # Bld Auto 8.47 K/mcL Above high normal 4 1.8 - 7.8 [facility] Lymphocytes # Bld Auto 1.79 K/mcL Normal 4 1 - 3.2 [facility] Basophils # Bld Auto 0.04 K/mcL Normal 02 4 0 - 0.2 [facility] PMV Bld Auto 9.8 FL Normal 4 7.4 - 11.4 [facility] MCHC RBC Auto-mCnc 34.9 g/dL Normal 4 32 - 36 [facility] WBC # Bld Auto 11.5 K/mcL Above high normal 08/19/20 2 4 4 - 10.5 [facility] Neutrophils/leuk NFr Bld Auto 73.8 % Normal 4 44 - 74 [facility] Hgb Bld-mCnc 17.7 g/dL Normal 4 13.5 - 18 [facility] Monocytes/leuk NFr Bld Auto 9.1 % Normal 4 2 - 12 [facility] Eosinophil # Bld Auto 0.07 K/mcL Normal 4 0 - 0.5 [facility] RDW RBC Auto-Rto 13.7 % Normal 4 12.1 - 17.7 [facility] MCH RBC Qn Auto 32.7 pcg Normal 4 25 - 33 [facility] Basophils/leuk NFr Bld Auto 0.3 % Normal 4 0 - 2 [facility] Hct VFr Bld Auto 50.7 % Normal 4 40 - 54 [facility] Lymphocytes/leuk NFr Bld Auto 15.6 % Below low normal 4 20 - 48 [facility] MCV RBC Auto 93.7 FL Normal 4 78 - 100 [facility] RBC # Bld Auto 5.41 M/mcL Normal 4 4.7 - 6 [facility] Monocytes # Bld Auto 1.04 K/mcL Above high normal 4 0 - 0.8 [facility] CYCLIC CITRULLINATED PEPTIDE <16 Normal 4 - 20 [facility] APARNA PATTERN SEE BELOW Normal 4 - [facility] APARNA SCREEN, IFA Positive Abnormal 4 - [facility] APARNA TITER 1:80 Abnormal 4 - [facility] SED RATE 10.0 MM/HR Normal 4 0 - 20 [facility] BASOPHILS 1.0 % Normal 4 0 - 2 [facility] RBC 4.65 M/uL Normal 4 4.3 - 6 [facility] IMMATURE GRANULOCYTES 1.0 % Above high normal 4 0 - 0.45 [facility] MCHC 33.5 g/dL Normal 4 31 - 36 [facility] MONOCYTES 11.0 % Normal 4 0 - 12 [facility] ABSOLUTE LYMPHS 2.2 K/uL Normal 4 1.5 - 4.9 [facility] HCT 44.8 % Normal 4 40 - 52 [facility] MCV 96.0 fL Normal 4 83 - 102 [facility] MCH 32.0 PG Normal 4 27 - 34 [facility] ABSOLUTE EOS 0.3 K/uL Normal 4 0 - 0.7 [facility] MPV 11.0 fL Normal 4 8 - 12 [facility] ABSOLUTE GRANULOCYTES 3.2 K/uL Normal 4 2.2 - 7.3 [facility] ABSOLUTE MONOS 0.7 K/uL Normal 4 0.2 - 1.5 [facility] WBC 6.5 K/uL Normal 4 3.7 - 10.3 [facility] HGB 15.0 g/dL Normal 4 13.5 - 18 [facility] NUCLEATED RBC 0.0 % Normal 4 0 - 0.2 [facility] LYMPHS 34.0 % Normal 4 16 - 50 [facility] ABSOLUTE IMMATURE GRANULOCYTES 0.1 K/uL Normal 4 0 - 0.3 [facility] ABSOLUTE NUCLEATED RBC 0.0 K/uL Normal 4 0 - 0.012 [facility] PLATELET COUNT 236.0 K/uL Normal 4 150 - 480 [facility] RDW 12.9 % Normal 4 11.1 - 13.3 [facility] EOSINOPHILS 5.0 % Normal 4 0 - 6 [facility] GRANULOCYTES 49.0 % Normal 4 23 - 78 [facility] ABSOLUTE BASO 0.1 K/uL Normal 4 0 - 0.2 [facility] GLYCOHEMOGLOBIN (A1C) 5.4 % Normal 4 4 - 5.6 [facility] PRO B-TYPE NATRIURETIC PEPTIDE 405.0 pg/mL Normal 4 0 - 900 [facility] URIC ACID 3.9 mg/dL Normal 4 3.7 - 9.2 [facility] GFRE 63.0 Normal 4 60 - [facility] MAGNESIUM 2.0 mg/dL Normal 4 1.8 - 2.4 [facility] GLOBULIN 3.2 g/dL Normal 4 2.4 - 4.2 [facility] SODIUM 137.0 mmol/L Normal 4 136 - 145 [facility] ALBUMIN 3.8 g/dL Normal 4 3.4 - 5 [facility] BUN 25.0 mg/dL Above high normal 4 7 - 18 [facility] CALCIUM 9.3 mg/dL Normal 4 8.5 - 10.1 [facility] CO2 28.0 mmol/L Normal 4 20 - 31 [facility] POTASSIUM SERUM 3.9 mmol/l Normal 4 3.5 - 5.1 [facility] PROTEIN, TOTAL 7.0 g/dL Normal 4 5.7 - 8.2 [facility] BUN/CREAT.RATIO 20.7 Normal 4 [facility] AST (SGOT) 19.0 U/L Normal 4 15 - 37 [facility] GLUCOSE 109.0 mg/dL Above high normal 4 74 - 100 [facility] CREATININE 1.21 mg/dL Above high normal 4 0.55 - 1.02 [facility] ALT (SGPT) 31.0 U/L Normal 4 12 - 78 [facility] ALKALINE PHOSPHATASE 235.0 U/L Above high normal 4 50 - 136 [facility] A/G RATIO 1.2 g/dL Normal 4 [facility] BILIRUBIN,TOTAL 0.5 mg/dL Normal 4 0.2 - 1 [facility] CHLORIDE 98.0 mmol/L Normal 4 98 - 107 [facility] PATIENT FASTING? YES Normal 4 [facility] T4 FREE 1.03 ng/dL Normal 4 0.6 - 1.38 [facility] LDL 70.0 Normal 4 0 - 129 [facility] CHOLESTEROL 178.0 mg/dL Normal 4 - 200 [facility] HDL 50.0 mg/dL Normal 4 - [facility] TRIGLYCERIDE 291.0 mg/dL Above high normal 4 - 150 [facility] TSH 1.31 uIU/mL Normal 4 0.35 - 4.5 [facility] RA FACTOR < 10.00 Normal 4 0 - 15 [facility] C-REACTIVE PROTEIN 0.9 mg/dL Normal 4 - 1 [facility] GLYCOHEMOGLOBIN (A1C) 5.1 % Normal 4 4 - 5.6 [facility] TSH 1.49 uIU/mL Normal 4 0.35 - 4.5 [facility] HDL 48.0 mg/dL Normal 4 - [facility] CHOLESTEROL 174.0 mg/dL Normal 4 - 200 [facility] TRIGLYCERIDE WITH LDLD REFLEX 183.0 mg/dL Above high normal 4 - 150 [facility] LDL 89.0 Normal 4 0 - 129 [facility] ALBUMIN 4.0 g/dL Normal 4 3.4 - 5 [facility] POTASSIUM SERUM 4.6 mmol/L Normal 4 3.5 - 5.1 [facility] BUN 26.0 mg/dL Above high normal 4 7 - 18 [facility] ALKALINE PHOSPHATASE 196.0 U/L Above high normal 4 50 - 136 [facility] ALT (SGPT) 29.0 U/L Normal 4 12 - 78 [facility] BILIRUBIN,TOTAL 0.6 mg/dL Normal 4 0.2 - 1 [facility] BUN/CREAT.RATIO 25.2 Normal 4 [facility] CALCIUM 8.9 mg/dL Normal 4 8.5 - 10.1 [facility] AST (SGOT) 19.0 U/L Normal 4 15 - 37 [facility] A/G RATIO 1.4 g/dL Normal 4 [facility] SODIUM 139.0 mmol/L Normal 4 136 - 145 [facility] GLOBULIN 2.8 g/dL Normal 4 2.4 - 4.2 [facility] CHL[facility] 101.0 mmol/L Normal 4 98 - 107 [facility] CO2 33.0 mmol/L Above high normal 4 21 - 32 [facility] GLUCOSE 103.0 mg/dL Above high normal 4 74 - 100 [facility] CREATININE 1.03 mg/dL Normal 4 0.55 - 1.3 [facility] PROTEIN, TOTAL 6.8 g/dL Normal 4 6.4 - 8.2 [facility] PATIENT FASTING? NO Normal 4 [facility] GFRE 76.0 Normal 4 60 - [facility] UCR 30.0 mg/dL Below low normal 4 60 - 200 [facility] <12.0 Normal 4 0 - 23 [facility] GFRE 55.0 Below low normal 4 60 - [facility] T4 FREE 1.09 ng/dL Normal 4 0.6 - 1.38 [facility] MAGNESIUM 2.6 mg/dL Above high normal 4 1.8 - 2.4 [facility] TSH 1.17 uIU/mL Normal 4 0.35 - 4.5 [facility] HDL 41.0 mg/dL Normal 4 - [facility] LDL 88.0 Normal 4 0 - 129 [facility] CHOLESTEROL 165.0 mg/dL Normal 4 - 200 [facility] TRIGLYCERIDE 182.0 mg/dL Above high normal 4 - 150 [facility] URIC ACID 4.8 mg/dL Normal 4 3.5 - 7.2 [facility] PRO B-TYPE NATRIURETIC PEPTIDE 165.0 pg/mL Normal 4 0 - 900 [facility] POTASSIUM SERUM 3.8 mmol/L Normal 4 3.5 - 5.1 [facility] SODIUM 136.0 mmol/L Normal 4 136 - 145 [facility] CREATININE 1.37 mg/dL Above high normal 4 0.55 - 1.3 [facility] BUN 41.0 mg/dL Above high normal 4 7 - 18 [facility] ALKALINE PHOSPHATASE 144.0 U/L Above high normal 4 50 - 136 [facility] CALCIUM 9.4 mg/dL Normal 4 8.5 - 10.1 [facility] CHLORIDE 97.0 mmol/L Below low normal 4 98 - 107 [facility] BUN/CREAT.RATIO 29.9 Normal 4 [facility] BILIRUBIN,TOTAL 0.8 mg/dL Normal 4 0.2 - 1 [facility] PROTEIN, TOTAL 6.8 g/dL Normal 4 6.4 - 8.2 [facility] A/G RATIO 1.3 g/dL Normal 4 [facility] ALT (SGPT) 27.0 U/L Normal 4 12 - 78 [facility] GLUCOSE 111.0 mg/dL Above high normal 4 74 - 100 [facility] CO2 30.0 mmol/L Normal 4 21 - 32 [facility] GLOBULIN 3.0 g/dL Normal 4 2.4 - 4.2 [facility] AST (SGOT) 17.0 U/L Normal 4 15 - 37 [facility] ALBUMIN 3.8 g/dL Normal 4 3.4 - 5 [facility] PATIENT FASTING? YES Normal 4 [facility] HGB 15.7 g/dL Normal 4 13.5 - 18 [facility] RBC 4.75 M/uL Normal 4 4.3 - 6 [facility] WBC 7.3 K/uL Normal 4 3.7 - 10.3 [facility] MCH 33.0 PG Normal 4 27 - 34 [facility] EOSINOPHILS 3.0 % Normal 4 0 - 6 [facility] ABSOLUTE MONOS 0.7 K/uL Normal 4 0.2 - 1.5 [facility] MONOCYTES 9.0 % Normal 4 0 - 12 [facility] GRANULOCYTES 56.0 % Normal 4 23 - 78 [facility] ABSOLUTE LYMPHS 2.2 K/uL Normal 4 1.5 - 4.9 [facility] LYMPHS 30.0 % Normal 4 16 - 50 [facility] RDW 12.7 % Normal 4 11.1 - 13.3 [facility] PLATELET COUNT 219.0 K/uL Normal 4 150 - 480 [facility] ABSOLUTE GRANULOCYTES 4.1 K/uL Normal 4 2.2 - 7.3 [facility] MCV 95.0 fL Normal 4 83 - 102 [facility] ABSOLUTE IMMATURE GRANULOCYTES 0.0 K/uL Normal 4 0 - 0.3 [facility] HCT 45.2 % Normal 4 40 - 52 [facility] ABSOLUTE BASO 0.1 K/uL Normal 4 0 - 0.2 [facility] BASOPHILS 1.0 % Normal 4 0 - 2 [facility] MPV 11.0 fL Normal 4 8 - 12 [facility] ABSOLUTE EOS 0.2 K/uL Normal 4 0 - 0.7 [facility] ABSOLUTE NUCLEATED RBC 0.0 K/uL Normal 4 0 - 0.012 [facility] IMMATURE GRANULOCYTES 1.0 % Above high normal 4 0 - 0.45 [facility] MCHC 34.7 g/dL Normal 4 31 - 36 [facility] NUCLEATED RBC 0.0 % Normal 4 0 - 0.2 [facility] PTT 32.0 secs Normal 4 25 - 36 [facility] INR 1.0 Normal 4 [facility] PROTIME 10.6 secs Normal 4 9 - 13 [facility] SODIUM 141.0 mmol/L Normal 4 136 - 145 [facility] CHLORIDE 100.0 mmol/L Normal 4 98 - 107 [facility] CALCIUM 9.2 mg/dL Normal 4 8.5 - 10.1 [facility] GLUCOSE 81.0 mg/dL Normal 4 74 - 100 [facility] CO2 35.0 mmol/L Above high normal 4 21 - 32 [facility] CREATININE 1.3 mg/dL Normal 4 0.55 - 1.3 [facility] POTASSIUM SERUM 3.4 mmol/L Below low normal 02/03/20 2 4 3.5 - 5.1 [facility] BUN 31.0 mg/dL Above high normal 4 7 - 18 [facility] PATIENT FASTING? NO Normal 4 [facility] GFRE 58.0 Below low normal 4 60 - [facility] UROBILINOGEN 0.2 mg/dL Normal 4 0 - 1 [facility] APPEARANCE Clear Normal 4 - [facility] LEUK. ESTERASE Negative Normal 4 - [facility] PH 5.5 Normal 4 5 - 8 [facility] SPECIFIC GRAVITY 1.015 Normal 4 1.005 - 1.03 [facility] KETONES Negative Normal 4 - [facility] COLOR Yellow Normal 4 - [facility] BILIRUBIN Negative Normal 4 - [facility] PROTEIN Negative Normal 4 - [facility] BLOOD Negative Normal 4 - [facility] NITRITE Negative Normal 4 - [facility] GLUCOSE Negative Normal 4 - [facility] CREATININE 1.15 mg/dL Normal 4 0.55 - 1.3 [facility] PHOSPHOROUS 3.2 mg/dL Normal 4 2.5 - 4.9 [facility] SODIUM 140.0 mmol/L Normal 4 136 - 145 [facility] ALBUMIN 3.6 g/dL Normal 4 3.4 - 5 [facility] BUN 28.0 mg/dL Above high normal 4 7 - 18 [facility] POTASSIUM SERUM 4.8 mmol/L Normal 4 3.5 - 5.1 [facility] CHLORIDE 103.0 mmol/L Normal 4 98 - 107 [facility] CO2 32.0 mmol/L Normal 4 21 - 32 [facility] CALCIUM 9.1 mg/dL Normal 4 8.5 - 10.1 [facility] GLUCOSE 108.0 mg/dL Above high normal 4 74 - 100 [facility] PATIENT FASTING? YES Normal 4 [facility] MAGNESIUM 1.9 mg/dL Normal 4 1.8 - 2.4 [facility] GFRE 67.0 Normal 4 60 - [facility] VITAMIN D (25-HYDROXY) 59.8 ng/mL Normal 4 30 - 100 [facility] SODIUM 139.0 mmol/L Normal 4 136 - 145 [facility] CALCIUM 9.7 mg/dL Normal 4 8.5 - 10.1 [facility] POTASSIUM SERUM 4.5 mmol/L Normal 4 3.5 - 5.1 [facility] CO2 33.0 mmol/L Above high normal 4 21 - 32 [facility] GLUCOSE 99.0 mg/dL Normal 4 74 - 100 [facility] CREATININE 1.16 mg/dL Normal 4 0.55 - 1.3 [facility] CHLORIDE 101.0 mmol/L Normal 4 98 - 107 [facility] BUN 28.0 mg/dL Above high normal 4 7 - 18 [facility] PATIENT FASTING? YES Normal 4 [facility] GFRE 67.0 Normal 4 60 - [facility] GLYCOHEMOGLOBIN (A1C) 5.4 % Normal 4 4 - 5.6 [facility] T4 FREE 1.12 ng/dL Normal 4 0.6 - 1.38 [facility] GFRE 59.0 Below low normal 4 60 - [facility] TRIGLYCERIDE 146.0 mg/dL Normal 4 - 150 [facility] HDL 54.0 mg/dL Normal 4 - [facility] LDL 93.0 Normal 4 0 - 129 [facility] CHOLESTEROL 176.0 mg/dL Normal 4 - 200 [facility] TSH 0.51 uIU/mL Normal 4 0.35 - 4.5 [facility] PRO B-TYPE NATRIURETIC PEPTIDE 192.0 pg/mL Normal 4 0 - 900 [facility] PROTEIN, TOTAL 6.6 g/dL Normal 4 6.4 - 8.2 [facility] A/G RATIO 1.4 g/dL Normal 4 [facility] GLOBULIN 2.8 g/dL Normal 4 2.4 - 4.2 [facility] ALKALINE PHOSPHATASE 131.0 U/L Normal 02 4 50 - 136 [facility] AST (SGOT) 21.0 U/L Normal 4 15 - 37 [facility] ALT (SGPT) 37.0 U/L Normal 4 12 - 78 [facility] BILIRUBIN,TOTAL 1.0 mg/dL Normal 4 0.2 - 1 [facility] BUN 31.0 mg/dL Above high normal 4 7 - 18 [facility] GLUCOSE 105.0 mg/dL Above high normal 4 74 - 100 [facility] CHLORIDE 97.0 mmol/L Below low normal 4 98 - 107 [facility] ALBUMIN 3.8 g/dL Normal 4 3.4 - 5 [facility] BUN/CREAT.RATIO 24.2 Normal 4 [facility] CALCIUM 10.0 mg/dL Normal 4 8.5 - 10.1 [facility] CREATININE 1.28 mg/dL Normal 4 0.55 - 1.3 [facility] CO2 37.0 mmol/L Above high normal 4 21 - 32 [facility] POTASSIUM SERUM 4.1 mmol/L Normal 4 3.5 - 5.1 [facility] SODIUM 140.0 mmol/L Normal 4 136 - 145 [facility] PATIENT FASTING? YES Normal 4 [facility] MAGNESIUM 1.7 mg/dL Below low normal 4 1.8 - 2.4 [facility] MCH 33.0 PG Normal 4 27 - 34 [facility] GRANULOCYTES 76.0 % Normal 4 23 - 78 [facility] ABSOLUTE NUCLEATED RBC 0.0 K/uL Normal 4 0 - 0.012 [facility] ABSOLUTE IMMATURE GRANULOCYTES 0.0 K/uL Normal 4 0 - 0.3 [facility] ABSOLUTE BASO 0.0 K/uL Normal 4 0 - 0.2 [facility] LYMPHS 14.0 % Below low normal 4 16 - 50 [facility] MCHC 33.7 g/dL Normal 4 31 - 36 [facility] ABSOLUTE GRANULOCYTES 6.9 K/uL Normal 4 2.2 - 7.3 [facility] HCT 46.6 % Normal 4 40 - 52 [facility] ABSOLUTE EOS 0.1 K/uL Normal 4 0 - 0.7 [facility] MPV 11.0 fL Normal 4 8 - 12 [facility] ABSOLUTE MONOS 0.7 K/uL Normal 4 0.2 - 1.5 [facility] NUCLEATED RBC 0.0 % Normal 4 0 - 0.2 [facility] HGB 15.7 g/dL Normal 4 13.5 - 18 [facility] RDW 13.0 % Normal 4 11.1 - 13.3 [facility] ABSOLUTE LYMPHS 1.3 K/uL Below low normal 10/21/19 2 4 1.5 - 4.9 [facility] WBC 9.1 K/uL Normal 4 3.7 - 10.3 [facility] RBC 4.78 M/uL Normal 4 4.3 - 6 [facility] BASOPHILS 0.0 % Normal 4 0 - 2 [facility] EOSINOPHILS 1.0 % Normal 4 0 - 6 [facility] MCV 98.0 fL Significant singh ge up 4 83 - 102 [facility] PLATELET COUNT 210.0 K/uL Normal 4 150 - 480 [facility] IMMATURE GRANULOCYTES 0.0 % Normal 4 0 - 0.45 [facility] MONOCYTES 7.0 % Normal 4 0 - 12 [facility] GFRE 80.0 Normal 4 60 - [facility] CALCIUM 9.2 mg/dL Normal 4 8.5 - 10.1 [facility] GLUCOSE 105.0 mg/dL Above high normal 4 74 - 100 [facility] BUN 31.0 mg/dL Above high normal 4 7 - 18 [facility] CO2 38.0 mmol/L Above high normal 4 21 - 32 [facility] CREATININE 0.99 mg/dL Normal 4 0.55 - 1.3 [facility] POTASSIUM SERUM 4.9 mmol/L Normal 4 3.5 - 5.1 [facility] CHLORIDE 102.0 mmol/L Normal 4 98 - 107 [facility] SODIUM 142.0 mmol/L Normal 4 136 - 145 [facility] PATIENT FASTING? NO Normal 4 [facility] CREATININE 1.33 mg/dL Above high normal 3 0.55 - 1.3 [facility] CHLORIDE 101.0 mmol/L Normal 3 98 - 107 [facility] POTASSIUM SERUM 4.8 mmol/L Normal 3 3.5 - 5.1 [facility] GLUCOSE 100.0 mg/dL Normal 3 74 - 100 [facility] BUN 38.0 mg/dL Above high normal 3 7 - 18 [facility] CALCIUM 9.7 mg/dL Normal 3 8.5 - 10.1 [facility] CO2 31.0 mmol/L Normal 3 21 - 32 [facility] SODIUM 139.0 mmol/L Normal 3 136 - 145 [facility] PATIENT FASTING? NO Normal 3 [facility] GFRE 57.0 Below low normal 3 60 - [facility] History of Medication Use Medication Directions Dispensed Refills Start Date End Date Status plecanatide (TRULANCE) 3 MG tablet Take 1 tablet (3 mg total) by mouth daily. 5 04/06/20 25 active linaclotide (LINZESS) 145 MCG Cap capsule Take 2 capsules (290 mcg total) by mouth every morning before breakfast. 5 active days days 5 completed days days 5 completed days days 5 completed days days 5 completed days days 5 completed days days 5 completed days days 5 completed days days 5 completed days days 5 completed days days 5 completed days days 5 completed days days 5 completed days days 5 completed days days 5 completed days days 5 completed oxyCODONE HCl 5 MG Oral Tablet oxyCODONE HCl 5 MG Oral Tablet QTY: 28 tablet Days: 7 Refills: 0 Written: 11/29/24 Patient Instructions: take 1 tab q6h prn/post op pain 5 active predniSONE (DELTASONE) 10 MG tablet Take 40 mg (= 4 tablets) by mouth daily for 2 days, then 30 mg (= 3 tablets) daily for 2 days, then 20 mg (= 2 tablets) daily for 2 days, then 10 mg (= 1 tablet) daily for 2 days. Take with food. 5 active diazepam (VALIUM) 5 MG tablet Take 1 tablet (5 mg total) by mouth nightly as needed for muscle spasms. 5 active colchicine (COLCRYS) 0.6 mg tablet Take 0.5 tablets (0.3 mg total) by mouth as needed. 5 active polyethylene glycol (MIRALAX) 17 gram packet Take 17 g by mouth 1 (one) time each day for 3 days. 5 09/16/19 25 active buPROPion XL (WELLBUTRIN XL) 24 hr tablet 450 mg 450 mg, oral, Daily, First dose on 09/10/24 at 0900, Do not crush, chew, or split. 5 active docusate sodium (COLACE) capsule 100 mg 100 mg, oral, 2 times daily, First dose on Thu09/10/24 at 1045 5 active enoxaparin (LOVENOX) injection 40 mg 40 mg, subcutaneous, Every 24 hours scheduled, First dose on Thu09/09/24 at 2019, Indication: VTE/PE Prophylaxis 5 active FLUoxetine (PROzac) capsule 20 mg 20 mg, oral, Daily, First dose on Thu09/10/24 at 0900 5 active lactulose (CHRONULAC) solution 10 g 10 g, oral, 3 times daily, First dose on Thu09/10/24 at 1045 5 active methocarbamoL (ROBAXIN) tablet 750 mg 750 mg, oral, 2 times daily, First dose on Thu09/10/24 at 0145 5 active HYDROmorphone (DILAUDID) injection 0.5 mg 0.5 mg, intravenous, Every 6 hours PRN, severe pain, Starting on Thu09/09/24 at 2045 5 09/10/19 25 aborted sodium chloride 0.9 % intravenous solution 50 mL 50 mL, intravenous, Once in imaging, Starting on Thu09/09/24 at 1450, For 1 dose 5 09/09/19 25 completed days days 4 completed traZODone (DESYREL) 50 MG tablet 1 tablet (50 mg total) nightly. 4 active allopurinoL (ZYLOPRIM) 100 mg tablet Take 1 tablet (100 mg total) by mouth 1 (one) time each day. 4 active allopurinoL (ZYLOPRIM) tablet 100 mg 100 mg, oral, Daily, First dose on 09/10/24 at 0900 4 active dapagliflozin propanediol (FARXIGA) 10 mg tablet Take 1 tablet (10 mg total) by mouth 1 (one) time each day. 4 active Farxiga 10 MG tablet 1 tablet (10 mg total). 4 active potassium chloride (KLOR-CON M20) 20 mEq CR tablet Take 1 tablet (20 mEq total) by mouth every other day. 4 active torsemide (DEMADEX) 100 mg tablet Take 2 tablets (200 mg total) by mouth daily. 4 active torsemide (DEMADEX) 100 MG tablet Take 2 tablets (200 mg total) by mouth daily. 4 active Lagevrio 200 MG Oral Capsule Lagevrio 200 MG Oral CapsuleTAKE 4 CAPSULE Twice daily Quantity: 40 Refills: 0BaMaximino mendoza M.D. Start : [id number] 3 completed metoprolol succinate (TOPROL-XL) 24 hr tablet 25 mg TAKE 1 TABLET DAILY 3 active allopurinol (ZYLOPRIM) 100 MG tablet TAKE 1 TABLET DAILY 3 active allopurinol (ZYLOPRIM) 100 MG tablet TAKE 1 TABLET DAILY 3 active oxyCODONE (ROXICODONE) 5 MG immediate release tablet Take 1 tablet (5 mg total) by mouth 4 times daily (every 6 hours) as needed for severe pain. Max Daily Amount: 20 mg 3 09/14/19 25 active oxyCODONE HCl - 5 MG Oral Tablet oxyCODONE HCl - 5 MG Oral Tablet Quantity: 9 Refills: 0 COTA Start : [id number] 3 completed traZODone (DESYREL) 50 mg tablet Take 1 tablet (50 mg total) by mouth daily with lunch. 3 active potassium chloride ER (K-DUR,KLOR-CON) tablet 20 mEq Take 1 tablet (20 mEq total) by mouth every other day. 3 02/17/20 24 active potassium chloride ER (K-DUR,KLOR-CON) tablet 20 mEq Take 1 tablet (20 mEq total) by mouth 2 (two) times a day. 3 active metolazone (ZAROXOLYN) 2.5 MG tablet 3 active FLUoxetine HCl - 40 MG Oral Capsule FLUoxetine HCl - 40 MG Oral CapsuleTAKE 1 CAPSULE DAILY. Refills: Maximino Phillips M.D. Start : [id number] 3 completed FLUOXETINE HCL PO Take 40 mg by mouth daily. 3 active Pravastatin Sodium 20 MG Oral Tablet Pravastatin Sodium 20 MG Oral TabletTAKE 1 TABLET DAILY. Refills: 0 COTA Start : [id number] 30 Tablet Pack 3 completed testosterone cypionate (DEPO-TESTOSTERONE CYPIONATE) 200 mg/mL injection INJECT 0.5 ML (100 MG TOTAL) INTO THE SHOULDER, THIGH, OR BUTTOCKS ONCE A WEEK . IF SINGLE DOSE 1ML VIAL USED DISCARD REMAINING MEDICATION AFTER USE 2 active albuterol (PROVENTIL HFA; VENTOLIN HFA) 108 (90 Base) MCG/ACT inhaler Inhale 2 puffs 4 times daily (every 6 hours) as needed. 2 active albuterol 108 (90 Base) MCG/ACT inhaler Inhale 2 puffs into the lungs every 6 (six) hours as needed for wheezing. 2 active pravastatin (PRAVACHOL) 40 mg tablet Take 0.5 tablets (20 mg total) by mouth daily. 2 active pravastatin (PRAVACHOL) tablet 40 mg Take 1 tablet (40 mg total) by mouth every evening. 2 active methocarbamol (ROBAXIN) 750 MG tablet TAKE 1 TABLET THREE TIMES A DAY NEEDED FOR MUSCLE SPASMS 2 08/02/20 24 aborted baclofen (LIORESAL) 10 MG tablet Take 1 tablet (10 mg total) by mouth 2 (two) times a day as needed for muscle spasms. Do not start before August 10, 2024. 2 08/11/20 24 active predniSONE 10 MG Oral Tablet predniSONE 10 MG Oral Tablet Quantity: 20 Refills: 0 Start : [id number] 2 completed famotidine (PEPCID) 40 MG tablet Take 1 tablet (40 mg total) by mouth 2 (two) times a day. 2 active Famotidine 40 MG Oral Tablet Famotidine 40 MG Oral TabletTAKE 1 TABLET DAILY. Refills: 0 Start : [id number]-[id number] 2 completed metoPROLOL SUCCINATE (TOPROL-XL) 25 MG 24 hr tablet 1 tablet (25 mg total) every morning. 2 active Metoprolol Succinate ER 25 MG Oral Tablet Extended Release 24 Hour Metoprolol Succinate ER 25 MG Oral Tablet Extended Release 24 HourTAKE 1 TABLET BY MOUTH EVERY DAY Quantity: 90 Refills: 2 Start : [id number]-[id number] 2 completed DULoxetine HCl - 60 MG Oral Capsule Delayed Release Particles DULoxetine HCl - 60 MG Oral Capsule Delayed Release ParticlesTAKE 1 CAPSULE Daily Quantity: 90 Refills: 1BMaximino león M.D. Start : [id number] 2 completed baclofen (LIORESAL) 10 MG tablet TAKE 1 TABLET AT BEDTIME NEEDED FOR MUSCLE SPASMS 2 02/02/20 24 active potassium chloride (KLOR-CON M20) 20 MEQ tablet Take 1 tablet (20 mEq total) by mouth 2 (two) times a day. 2 active potassium chloride (KLOR-CON M20) 20 MEQ tablet Take 1 tablet daily, but on Mondays and Fridays take 2 tablets 2 active naloxone (NARCAN) 4 mg/actuation nasal spray Use 1 spray in 1 nostril for suspected opioid overdose. May repeat in 2 minutes in the other nostril if no or minimal response. 1 active spironolactone (ALDACTONE) tablet 25 mg Take 1 tablet (25 mg total) by mouth daily. 1 active diazePAM 5 MG Oral Tablet diazePAM 5 MG Oral TabletTAKE 1 TABLET 3 times daily PRN pain Refills: 0 COTA Start : [id number] 0 completed ketorolac (TORADOL) 30 mg/mL (1 mL) injection INJECT 1 ML (30 MG TOTAL) INTO THE MUSCLE ONCE NEEDED (1 INJECTION WEEKLY FOR SEVERE PAIN) FOR UP TO 4 DOSES. 0 03/23/20 20 aborted methadone (DOLOPHINE) 10 mg tablet Take 2 tablets (20 mg total) by mouth every 8 (eight) hours. For chronic pain 0 03/19/20 20 active oxyCODONE (ROXICODONE) 30 mg Immediate Release tablet Take 1 tablet (30 mg total) by mouth every 8 (eight) hours as needed (for chronic pain). 0 03/19/20 20 active methocarbamoL (ROBAXIN) 750 mg tablet Take 1 tablet (750 mg total) by mouth 3 (three) times daily as needed. 0 04/18/20 20 active spironolactone (ALDACTONE) 25 mg tablet 0 active torsemide (DEMADEX) 100 mg tablet 0 active Torsemide 100 MG Oral Tablet Torsemide 100 MG Oral TabletTAKE 2 TABLET Daily Refills: 0 Start : [id number] 0 completed Lisinopril 5 MG Oral Tablet Lisinopril 5 MG Oral TabletTAKE 1 TABLET DAILY. Quantity: 90 Refills: 3 Start : 59-Ymz-6497Spswnb 9 completed baclofen (LIORESAL) 10 MG tablet Take 1 tablet (10 mg total) by mouth 3 (three) times a day. 8 active baclofen (LIORESAL) tablet 10 mg 10 mg, oral, 3 times daily, First dose on 09/10/24 at 0900 8 active buPROPion (WELLBUTRIN XL) 300 MG 24 hr tablet Take 1 tablet (300 mg total) by mouth every morning. WITH 150 mg TAB 8 active Linzess 72 MCG Oral Capsule Linzess 72 MCG Oral CapsuleTAKE 1 CAPSULE Daily Quantity: 90 Refills: 1BMaximino león M.D. Start : 48-Iha-6323Mewckz 8 completed Baclofen 10 MG Oral Tablet Baclofen 10 MG Oral Tablet Quantity: 90 Refills: 0 COTA Start : 55-[id number]-[id number] 8 completed Morphine Pump Morphine Pump Refills: 0Maximino William M.D. Start : 81-Ydg-8526Ajytfk 7 completed ketorolac (TORADOL) injection 30 mg 7 04/18/20 20 aborted Vitamin D3 50 MCG (1999) Oral Tablet Vitamin D3 50 MCG (1999) Oral Tablet Refills: 0 Start : 2-Esv-[id number] 7 completed gabapentin (NEURONTIN) 300 MG capsule 6 active lisinopril (PRINIVIL,ZESTRIL) 40 MG tablet 6 active buPROPion (WELLBUTRIN XL) 150 MG 24 hr tablet 07/19/20 1 6 active DULoxetine (CYMBALTA) 60 MG capsule 6 active buPROPion HCl ER (XL) 300 MG Oral Tablet Extended Release 24 Hour buPROPion HCl ER (XL) 300 MG Oral Tablet Extended Release 24 HourTake 1 tablet daily Quantity: 90 Refills: Maximino Phillips M.D. Start : 4 completed buPROPion HCl ER (XL) 300 MG Oral Tablet Extended Release 24 Hour buPROPion HCl ER (XL) 300 MG Oral Tablet Extended Release 24 HourTake 1 tablet daily Quantity: 90 Refills: Maximino Phillips M.D. Start : 4 completed buPROPion HCl ER (SR) 150 MG Oral Tablet Extended Release 12 Hour buPROPion HCl ER (SR) 150 MG Oral Tablet Extended Release 12 HourTake 1 tablet daily as directed Quantity: 90 Refills: Maximino Phillips M.D. Start : 4 completed EpiPen 0.3 MG/0.3ML MARIIA EpiPen 0.3 MG/0.3ML DEVIUSE DIRECTED Quantity: 1 Refills: 3BMaximino león M.D. Start : 2 EA Pen 0 completed SUMAtriptan (IMITREX) 6 mg/0.5 mL subcutaneous solution pen Inject 0.5 mL (6 mg total) under the skin once. 1 active SUMAtriptan (IMITREX) 6 mg/0.5 mL subcutaneous solution pen Inject 0.5 mL (6 mg total) under the skin once. 1 active take 1 tablet Oral QD for 90 days 100 MG Tablet, take 1 tablet Oral QD 0 active methylPREDNISolone (MEDROL) 4 MG tablet Take 1 tablet (4 mg total) by mouth as needed. Take with meals or food to reduce stomach upset. 09/14/19 25 active linaCLOtide (Linzess) 145 mcg capsule Take 1 capsule (145 mcg total) by mouth daily as needed. 09/10/19 25 active TESTOSTERONE CYPIONATE IM Inject into the muscle once a week. On Thursday03/18/20 24 active allopurinol completed buPROPion (WELLBUTRIN XL) 300 MG 24 hr tablet Take 1 tablet (300 mg total) by mouth daily. Taken with 1- 150 mg tablet for total dose 450 mg. active buPROPion (WELLBUTRIN XL) 300 MG 24 hr tablet Take 1 tablet (300 mg total) by mouth daily. Taken with 1- 150 mg tablet for total dose 450 mg. active bupropion HCl completed buPROPion XL (WELLBUTRIN XL) 300 mg 24 hr tablet Take 1 tablet (300 mg total) by mouth daily. Taken with 1- 150 mg tablet for total dose 450 mg. active buPROPion XL (WELLBUTRIN XL) 300 mg 24 hr tablet Take 450 mg by mouth 1 (one) time each day. active cholecalciferol (VITAMIN D-3) 50 mcg (2,000 unit) tablet Take 2,000 Units by mouth daily with lunch. active Cholecalciferol (VITAMIN D) 2000 units tablet Take 2,000 Units by mouth daily. active Cholecalciferol (VITAMIN D) 2000 units tablet Take 2,000 Units by mouth daily. active cyanocobalamin (VITAMIN B-12) 1,000 mcg tablet Take 1 tablet (1,000 mcg total) by mouth daily. active diazepam completed diazePAM (VALIUM) 5 mg tablet Take 1 tablet (5 mg total) by mouth every 8 hours as needed for anxiety. Max Daily Amount: 15 mg active diazePAM (VALIUM) tablet 5 mg Take 1 tablet (5 mg total) by mouth every 8 (eight) hours as needed for anxiety. active FLUoxetine (PROzac) 20 MG capsule Take 2 capsules (40 mg total) by mouth daily. active gabapentin (NEURONTIN) 100 mg capsule Take 1 capsule (100 mg total) by mouth 2 (two) times a day. active gabapentin (NEURONTIN) 100 MG capsule Take 1 capsule (100 mg total) by mouth 2 (two) times a day. active L. acidophilus/Bifid. animalis (DAILY PROBIOTIC ORAL) Take 1 tablet by mouth daily with lunch. active linaCLOtide (Linzess) 145 mcg capsule Take 1 capsule (145 mcg total) by mouth daily as needed. active loratadine (CLARITIN) 10 mg tablet Take 10 mg by mouth.. active methocarbamoL (ROBAXIN) 750 mg tablet Take 1 tablet (750 mg total) by mouth 2 (two) times a day. active metOLazone (ZAROXOLYN) 2.5 mg tablet Take 1 tablet (2.5 mg total) by mouth if needed. active Multiple Vitamins-Minerals (CENTRUM ADULTS) TABS Take 1 tablet by mouth daily. active multivit-minerals/folic acid (CENTRUM ADULTS ORAL) Take 1 tablet by mouth daily. active omeprazole completed Omeprazole 40 MG Oral Capsule Delayed Release Omeprazole 40 MG Oral Capsule Delayed ReleaseTAKE 1 CAPSULE Daily Quantity: 30 Refills: 3Active completed PREDNISONE PO Take by mouth. act josias Robaxin completed spironolactone completed torsemide completed VITAMIN B-12 1000 MCG PO TABS Take 1 tablet (1,000 mcg total) by mouth daily. active Allergies Allergen Reaction Severity Comment Documented Date Source Status WOUND DRESSING ADHESIVE RASH/DERMATITI S 06/15/2020 [facility] active ASPERGILLUS ALLERGY SKIN TEST OTHER (SEE COMMENTS) Other reaction(s) : Other Watery eyes and runny nose,Watery eyes and runny nose 07/29/2017 [facility] active ASPERGILLUS FUMIGATIS OTHER Watery eyes and runny nose 07/29/2017 [facility] active TRICHOPHYTON GI INTOLERANCE/NA USEA/VOMITINGO THER (SEE COMMENTS)TRICH OPHYTON Severe Watery eyes and runny nose 01/27/2017 [facility] active TRICHOPHYTON MENTAGROPHYTES ALLERGENIC EXTRACT NAUSEA AND VOMITING Watery eyes and runny nose 01/27/2017 [facility] active YEAST, DRIED CONGESTION Pts gets congested, edema and watery eyes. Pt does have an epi pen. 11/16/2014 [facility] active Problems Problem Status Onset Date Problem Type Date of Resolution Source Acquired spondylolisthesis active 2020-02-29 4 [facility] CHF (congestive heart failure), NYHA class I, acute on chronic, combined active 2019-07-02 3 ProblemAct [facility] Presence of intrathecal pump active 8 [facility]Act [facility] Hypertension active 2014-10-29 9 ProblemAct [facility] Cervical dystonia active 2022-12-29 6 ProblemAct [facility] Chronic constrictive idiopathic pericarditis active 2019-08-01 8 ProblemAct [facility] Facet arthritis of cervical region active 2 ProblemAct [facility] Dysphagia active 8 [facility]Act [facility] Change in bowel habits active 8 ProblemAct [facility] Major depressive disorder active 2019-03-31 9 ProblemAct [facility] Lumbosacral spondylosis without myelopathy active 2014-10-29 9 [facility]Act [facility] DDD (degenerative disc disease), cervical active 2016-06-01 7 [facility]Act [facility] Chest pain active 2024-08-31 0 ProblemAct [facility] Hypertension active 2019-03-31 9 ProblemAct [facility] Acute on chronic heart failure with preserved ejection fraction (HFpEF) ([facility] V24, [facility] V28) active 8 ProblemAct [facility] Cervicalgia active 2016-12-31 0 ProblemAct [facility] FLAKO (obstructive sleep apnea) active 2019-03-31 9 [facility]Act [facility] Muscle spasm of back active 2023-07-02 1 ProblemAct [facility] Chronic diastolic congestive heart failure active 2019-03-31 9 ProblemAct [facility] Secondary hyperparathyroidism ([facility] V24) active 2021-10-31 1 ProblemAct [facility] Thoracic myelopathy active 8 ProblemAct [facility] Encounter for colonoscopy due to history of adenomatous colonic polyps active 2025-02-28 6 [facility]Act [facility] S/P insertion of intrathecal pump active 2021-07-31 5 ProblemAct [facility] High coronary artery calcium score active 2022-03-01 2 ProblemAct [facility] Aftercare following surgery active 2016-12-31 0 ProblemAct [facility] Cervical spondylosis without myelopathy active 2019-03-31 9 ProblemAct [facility] Medication management active 2022-03-31 6 ProblemAct [facility] Chronic low back pain active 2021-11-30 9 ProblemAct [facility] Ascending aortic aneurysm active 2019-03-31 9 ProblemAct [facility] Cervical stenosis of spine active 2020-05-02 3 ProblemAct [facility] Sacroiliac joint dysfunction of both sides active 2021-05-01 3 ProblemAct [facility] Ulcer of esophagus without bleeding active 2022-03-01 8 ProblemAct [facility] Gastroesophageal reflux disease active 2022-03-01 8 ProblemAct [facility] Postlaminectomy syndrome, lumbar region active 2014-10-29 9 ProblemAct [facility] Acute renal failure (ARF) active 1 ProblemAct [facility] Pain of both hip joints active 2020-01-30 5 ProblemAct [facility] Anemia of renal disease active 2021-10-31 1 ProblemAct CT_THSFRAN History of colon polyps active 8 ProblemAct HHCCT Stage 4 chronic kidney disease ([facility] V24, [facility] V28) active 2021-10-31 1 ProblemAct CT_THSFRAN Chronic pain disorder active 2019-03-31 9 ProblemAct HHCCT CHF (congestive heart failure), NYHA class II, acute on chronic, systolic ([facility] V24, [facility] V28) active 2019-07-02 4 ProblemAct CT_THSFRAN Heart failure active 2020-10-29 2 ProblemAct HHCCT Muscle spasticity active 2018-12-30 0 ProblemAct HHCCT DDD (degenerative disc disease), lumbosacral active 2014-10-29 9 ProblemAct HHCCT Shortness of breath active 1 ProblemAct HHCCT Gout active 8 ProblemAct HHCCT Neuralgia, neuritis, and radiculitis, unspecified active 2014-10-29 9 ProblemAct HHCCT Palliative care by specialist active EncounterDiagnosisAct CTTHNE MG Debility active EncounterDiagnosisAct CTTHNEMG Bilateral sciatica active EncounterDiagnosisAct CT_THJMH Closed fracture of multiple ribs of left side with routine healing, subsequent encounter active EncounterDiagnosisAct CT_THJ MH Localized, primary osteoarthritis of the wrist (disorder) active 8 ProblemAct CTHANDC Closed fracture of shaft of fourth metacarpal of left hand (disorder) active 2022-11-30 1 ProblemAct CTHANDC Open fracture finger middle phalanx (disorder) active 2022-11-30 1 ProblemAct CTHANDC Other specified postprocedural states active 7 ProblemAct CT_RSOC Acute on chronic diastolic (congestive) heart failure active 9 ProblemAct CT_RSOC Postlaminectomy syndrome, lumbar region active EncounterDiagnosisAct HHCCT Chronic diastolic congestive heart failure active 2019-03-31 9 ProblemAct CT_THSFRAN Major depressive disorder active 2019-03-31 9 ProblemAct CT_THSFRAN Ascending aortic aneurysm active 2019-03-31 9 ProblemAct CT_THSFRAN Chronic constrictive idiopathic pericarditis active 2019-08-01 8 ProblemAct CT_THSFRAN Degeneration of cervical intervertebral disc active EncounterDiagnosisAct ADPTCC T Cervical spondylosis without myelopathy active EncounterDiagnosisAct ADPTCCT Degeneration of lumbar or lumbosacral intervertebral disc active EncounterDiagnosisAct ADPTCCT Lumbar spondylosis active EncounterDiagnosisAct ADPTCCT Lumbosacral spondylosis without myelopathy active EncounterDiagnosisAct ADPTCCT Immunizations Vaccine Date Source Lot Number Status Tdap 12/18/2022 [facility] [id number] completed Influenza High-Dose Quadrivalent,(FLUZONE HIGH-DOSE), Perservative Free IM 0.7 mL 65 years and older 05/27/2022 [facility] [id number] com pleted Moderna COVID-19 Bival Boost er 50 MCG/0.5ML Intramuscular Suspension 05/27/2022 [facility] completed Moderna COVID-19 Bival Boost er 50 MCG/0.5ML Intramuscular Suspension 05/27/2022 [facility] completed Moderna SARS-CoV-2 COVID-19, mRNA, LNP-S, preservative free 05/27/2022 CT_THSFRAN c ompleted Covid-19 (Moderna Booster 18 +) 0.25mL dosage 08/20/2021 CTTHSFRAN [id number] completed Influenza High-Dose Quadrivalent,(FLUZONE HIGH-DOSE), Perservative Free IM 0.7 mL 65 years and older 05/29/2021 [facility] [id number] com pleted Pneumococcal Polysaccharide 23-Valent 05/29/2021 [facility] [id number] completed Covid-19 mRNA Primary Series Vaccine - Moderna 0.5 mL Full Dose 11/25/2020 [facility] [id number] completed Covid-19 mRNA Primary Series Vaccine - Moderna 0.5 mL Full Dose 10/28/2020 [facility] [id number] completed Influenza Virus Trivalent Sp lit Vaccine (MDV) IM 05/27/2020 [facility] [employer] [id number] completed Pneumococcal Conjugate 13-Valent 04/19/2020 [facility] [id number] completed Influenza, Quadrivalent (FLUARIX, AFLURIA, FLULAVAL, FLUZONE) Preservative Free IM 06/10/2019 [facility] co mpleted Influenza Inactivated/Split Preservative Free IM 06/29/2018 [facility] completed Influenza trivalent, 0.5mL, preservative free (Fluarix; FluLaval; Fluzone) ages 6mo and older (Afluria) 3 years and older 06/16/2018 CT_THSFRAN completed Influenza, Unspecified 06/16/2018 [facility] co mpleted Influenza Virus Trivalent Sp lit Vaccine (MDV) IM 06/02/2017 [facility] completed Influenza, Unspecified 06/02/2017 [facility] co mpleted Influenza, Unspecified 06/05/2016 [facility] co mpleted Tdap 01/23/2015 [facility] [id number] completed Influenza Virus Trivalent Sp lit Vaccine (MDV) IM 06/08/2014 [facility] [id number] completed Influenza, Unspecified 06/07/2014 CCT [id number] co mpleted Influenza, Unspecified 05/31/2013 [facility] [id number] co mpleted Influenza, Unspecified 06/17/2012 [facility] [id number] co mpleted Influenza, Unspecified 06/18/2010 [facility] [id number] co mpleted Td 11/08/2004 [facility] completed Td 11/08/2004 [facility] completed Encounters Encounter Type Encounter Reason Primary Diagnosis Location Date Ambulatory [facility] 04/11/2025 Ambulatory [facility] 04/10/2025 Ambulatory [facility] 04/10/2025 Ambulatory THORACIC MYELOPATHY THORACIC MYELOPATHY [facility] 03/29/2025 Ambulatory Other spondylosis with myelopathy, thoracic region Other spondylosis with myelopathy, thoracic region [facility] 03/21/2025 Ambulatory [facility] 03/16/2025 Ambulatory Follow-up Follow-up [facility] 03/15/2025 Ambulatory Unil primary osteoarth of first carpometacarp joint, r hand Unil primary osteoarth of first carpometacarp joint, r hand [facility] 03/09/[address] [facility] 03/09/2025 Ambulatory [facility] 02/28/[address] [facility] 02/06/2025 Ambulatory Primary osteoarthritis, right wrist Primary osteoarthritis, right wrist [facility] 01/24/2025 Ambulatory Primary osteoarthritis, right wrist Primary osteoarthritis, right wrist [facility] 01/12/2025 Ambulatory Primary osteoarthritis, right wrist Primary osteoarthritis, right wrist [facility] 01/12/2025 Ambulatory [facility] 01/09/2025 Ambulatory Primary osteoarthritis, right wrist Primary osteoarthritis, right wrist [facility] 01/05/2025 Ambulatory Primary osteoarthritis, right wrist Primary osteoarthritis, right wrist [facility] 12/29/2024 Ambulatory Primary osteoarthritis, right wrist Primary osteoarthritis, right wrist [facility] 12/29/2024 Ambulatory [place] [employer] [facility] 12/23/[address] [facility] 12/20/2024 Ambulatory Unil primary osteoarth of first carpometacarp joint, r hand Unil primary osteoarth of first carpometacarp joint, r hand [facility] 12/20/2024 Ambulatory Primary osteoarthritis, right wrist Primary osteoarthritis, right wrist [facility] 12/06/2024 Ambulatory Sacrococcygeal disorders, not elsewhere classified Sacrococcygeal disorders, not elsewhere classified [facility] 12/05/2024 Ambulatory CREATE Sacrococcygeal disorders, not elsewhere classified [facility] 12/05/2024 Ambulatory Primary osteoarthritis, right wrist Primary osteoarthritis, right wrist [facility] 11/29/2024 Ambulatory MODIFY Primary osteoarthritis, right wrist [facility], [facility] 11/29/2024 Ambulatory Sacrococcygeal disorders, not elsewhere classified Sacrococcygeal disorders, not elsewhere classified [place] [employer] [facility] 11/23/[address] [facility] 11/22/2024 Ambulatory [facility] 11/22/2024 Ambulatory [facility] 11/21/2024 Ambulatory [place] [employer] [facility] 11/21/2024 Ambulatory [facility] 11/14/2024 Ambulatory Primary osteoarthritis, right wrist Primary osteoarthritis, right wrist [facility] 11/10/2024 Ambulatory CERVICAL DYSTONIA CERVICAL DYSTONIA [facility] 11/03/2024 Ambulatory [facility] 11/03/2024 Ambulatory [facility] 10/31/2024 Ambulatory [facility] 10/31/2024 Ambulatory Postlaminectomy syndrome, not elsewhere classified Postlaminectomy syndrome, not elsewhere classified [employer] [facility] 10/28/[address] [facility] 10/26/2024 Ambulatory [employer] 10/11/2024 Ambulatory [facility] 10/10/2024 Ambulatory Other intervertebral disc degeneration, lumbar region with discogenic back pain only Other intervertebral disc degeneration, lumbar region with discogenic back pain only [place] [employer] [facility] 10/10/2024 Ambulatory M51.360 [id number] [facility] 10/07/2024 Ambulatory [employer] [facility] 09/29/2024 Ambulatory Other intervertebral disc degeneration, lumbar region with discogenic back pain only Other intervertebral disc degeneration, lumbar region with discogenic back pain only [place] [employer] [facility] 09/29/2024 Ambulatory CHRONIC BACK PAIN CHRONIC BACK PAIN [facility] 09/26/[address] [facility], [facility] 09/23/2024 Ambulatory [place] [employer] [facility] 09/20/2024 Ambulatory [place] [employer] [facility] 09/20/2024 Ambulatory [place] [employer] [facility] 09/20/2024 Ambulatory BP [facility] 09/16/2024 Ambulatory [place] [employer] [facility] 09/14/2024 Ambulatory [facility] 09/14/2024 Emergency Back Pain Other chest pain [facility] 09/09/2024 Emergency fell 9 days ago hurt my ribs and it isn?t getting better. Doctor said go to ER Multiple fractures of ribs, left side, subsequent encounter for fracture with routine healing [facility] 08/19/2024 [facility] [employer] [facility] 08/02/2024 [facility] [employer] [facility] 08/02/2024 Ambulatory Primary osteoarthritis, right wrist Primary osteoarthritis, right wrist [facility] 07/19/[address] [facility], [facility] 07/05/2024 Ambulatory [place] [employer] [facility] 06/23/2024 Ambulatory CHEST PAIN THORACIC AORTIC ANUERYSM CHEST PAIN THORACIC AORTIC ANUERYSM [facility]. 06/21/2024 Ambulatory [facility] 06/16/2024 Ambulatory Disp fx of middle phalanx of left ring finger, init Disp fx of middle phalanx of left ring finger, init [facility] 06/07/2024 Ambulatory Chronic diastolic (congestive) heart failure Chronic diastolic (congestive) heart failure [facility] 05/31/2024 Ambulatory Chronic diastolic (congestive) heart failure Chronic diastolic (congestive) heart failure [facility] 05/31/2024 Ambulatory [place] [employer] [facility] 05/10/2024 Ambulatory R WRIST PAIN R WRIST PAIN [facility] 04/29/2024 Ambulatory [facility] 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, [facility] 03/09/2024 Ambulatory Presence of other cardiac implants and grafts Presence of other cardiac implants and grafts [facility] 02/16/[address] [facility] 02/03/2024 Ambulatory [employer] 02/02/[address] [facility] 01/15/2024 Ambulatory Presence of other cardiac implants and grafts Presence of other cardiac implants and grafts [facility] 01/12/2024 Ambulatory [facility] [employer] [facility] 01/08/2024 Ambulatory [employer] 12/24/2023 Ambulatory Chronic diastolic (congestive) heart failure Chronic diastolic (congestive) heart failure [facility] 12/08/[address] [facility] 11/23/2023 Ambulatory [employer] 11/16/2023 Ambulatory Chronic diastolic (congestive) heart failure Chronic diastolic (congestive) heart failure [facility] 11/03/[address] [facility] 10/21/2023 Ambulatory Spasmodic torticollis Spasmodic torticoll is [employer] 09/29/2023 Ambulatory Chronic diastolic (congestive) heart failure Chronic diastolic (congestive) heart failure [facility] 09/29/[address] [facility] 09/18/2023 Ambulatory Spondylosis without myelopathy or radiculopathy, lumbosacral region Spondylosis without myelopathy or radiculopathy, lumbosacral region [employer] 09/01/2023 Ambulatory Acute on chronic diastolic (congestive) heart failure Acute on chronic diastolic (congestive) heart failure [facility] 08/28/2023 Ambulatory Acute on chronic combined systolic (congestive) and diastolic (congestive) heart failure Acute on chronic combined systolic (congestive) and diastolic (congestive) heart failure [facility] 08/28/2023 Ambulatory Spasmodic torticollis Spasmodic torticoll is [employer] 08/18/2023 Ambulatory Chronic diastolic (congestive) heart failure Chronic diastolic (congestive) heart failure [facility] 07/28/2023 Ambulatory Acute on chronic diastolic (congestive) heart failure Acute on chronic diastolic (congestive) heart failure [facility] 07/27/2023 Ambulatory Spasmodic torticollis Spasmodic torticoll is [employer] 07/21/2023 Ambulatory RT SHOULDER PAIN RT SHOULDER PAIN [facility] 07/15/2023 Ambulatory [facility] 07/10/2023 Ambulatory Other muscle spasm Other muscle spasm [facility] [employer] 06/30/2023 Ambulatory Chronic diastolic (congestive) heart failure Chronic diastolic (congestive) heart failure [facility] 06/23/2023 Ambulatory Acute on chronic combined systolic (congestive) and diastolic (congestive) heart failure Acute on chronic combined systolic (congestive) and diastolic (congestive) heart failure [facility] 06/22/2023 Ambulatory [facility] 06/12/2023 Ambulatory Other muscle spasm Other muscle spasm [facility] [employer] 05/26/2023 Ambulatory Chronic diastolic (congestive) heart failure Chronic diastolic (congestive) heart failure [facility] 05/19/2023 Ambulatory Acute on chronic diastolic (congestive) heart failure Acute on chronic diastolic (congestive) heart failure [facility] 05/18/2023 Ambulatory Chronic pain syndrome Chronic pain syndro me [employer] 05/05/2023 Ambulatory Acute on chronic diastolic (congestive) heart failure Acute on chronic diastolic (congestive) heart failure [facility] 04/14/2023 Ambulatory Spasmodic torticollis Spasmodic torticoll is [employer] 04/14/2023 Ambulatory Acute on chronic diastolic (congestive) heart failure Acute on chronic diastolic (congestive) heart failure [facility] 04/14/2023 Ambulatory [facility] 03/19/2023 Ambulatory Spondylosis with out myelopathy or radiculopathy, cervical region [employer] 03/10/[address] [facility] 03/10/2023 Ambulatory Chronic diastoli c (congestive) heart failure [facility] 03/10/2023 Ambulatory Disp fx of neck of fourth metacarpal bone, left hand, init [facility] 03/10/2023 Ambulatory Acute on chronic diastolic (congestive) heart failure [facility] 03/10/[address] [facility] 02/23/[address] [facility] 02/18/2023 Ambulatory Disp fx of neck of fourth metacarpal bone, left hand, init [facility] 02/16/[address] [facility] 02/06/2023 Ambulatory Disp fx of neck of fourth metacarpal bone, left hand, init [facility] 02/05/2023 Ambulatory Disp fx of neck of fourth metacarpal bone, left hand, init [facility] 02/05/[address] [facility] 02/02/2023 Ambulatory Disp fx of middl e phalanx of left ring finger, 7thB [facility] 01/27/[address] [facility] 01/23/2023 Ambulatory Nondisp fx of sh aft of fourth MC bone, left hand, init [facility] 01/20/2023 Ambulatory Nondisp fx of sh aft of fourth MC bone, left hand, init [facility] 01/20/2023 Ambulatory Nondisp fx of sh aft of fourth MC bone, left hand, init [facility] 01/15/2023 Ambulatory Nondisp fx of sh aft of fourth MC bone, left hand, init [facility] 01/15/2023 Ambulatory Spondylosis with out myelopathy or radiculopathy, cervical region [employer] 01/13/2023 Ambulatory Postlaminectomy syndrome, not elsewhere classified [facility] 01/13/[address] [facility] 01/12/2023 Ambulatory Encounter for ot her specified surgical aftercare [facility] 12/30/[address] [facility] 12/16/[address] [facility] 12/02/[address] [facility] 11/28/[address] [facility] 11/25/[address] [facility] 11/21/[address] [facility] 11/19/2022 Ambulatory Postlaminectomy syndrome, not elsewhere classified [employer] 11/18/2022 Ambulatory Spondylosis with out myelopathy or radiculopathy, lumbosacral region [employer] 11/18/[address] [facility] 11/18/[address] [facility] 11/17/[address] [facility] 11/12/[address] [facility] 11/03/[address] [facility] 10/30/2022 Ambulatory RIGHT SHOULDER RC TEAR RIGHT SHOULDER RC TEAR [facility] 10/21/2022 Ambulatory Spondylosis with out myelopathy or radiculopathy, cervical region [employer] 10/02/[address] [facility] 09/30/2022 Ambulatory Spondylosis with out myelopathy or radiculopathy, cervical region [employer] 09/16/[address] [facility] 09/02/2022 Ambulatory Postlaminectomy syndrome, not elsewhere classified [employer] 08/19/[address] [facility] 08/19/2022 Ambulatory R SHOULDER PAIN DANILO P TENDON TEAR R SHOULDER PAIN BICEP TENDON TEAR [facility] 07/23/2022 Ambulatory Postlaminectomy syndrome, not elsewhere classified [employer] 07/08/2022 Ambulatory Gout, unspecified [employer] 05/16/2022 Ambulatory Postlaminectomy syndrome, not elsewhere classified [employer] 05/15/2022 Ambulatory [employer] 04/19/2022 Ambulatory Pain in right foot [employer] 04/19/2022 Ambulatory Postlaminectomy syndrome, not elsewhere classified [employer] 04/15/2022 Ambulatory Strain of muscle , fascia and tendon of other parts of biceps, right arm, initial encounter [employer] 03/30/2022 Ambulatory Dysphagia, unspecified [employer] 03/27/2022 Ambulatory Postlaminectomy syndrome, not elsewhere classified [employer] 03/13/2022 Ambulatory Postlaminectomy syndrome, not elsewhere classified [employer] 02/20/2022 Ambulatory Postlaminectomy syndrome, not elsewhere classified [employer] 01/23/2022 Ambulatory 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 [employer] 01/03/2022 Ambulatory Presence of aortocoronary bypass graft [employer] 12/26/2021 Ambulatory Testicular hypofunction [employer] 12/17/2021 Ambulatory [employer] 08/22/2021 Ambulatory Postlaminectomy syndrome, not elsewhere classified [employer] 08/19/2021 Inpatient Other specified postprocedural states [employer] 08/14/2021 Ambulatory Constipation [employer] 07/08/2021 Ambulatory Chronic pain syndrome [facility] 06/12/2021 Ambulatory Testicular hypofunction [employer] 05/30/2021 Care Team Organization Name Specialty Phone Email Start Date End Da te [facility] 03/24/2025 [employer] [facility] Primary Care 03/16/2025 [facility] 11/23/2024 [facility] [place], [facility] 11/11/2024 [facility] 10/09/2024 [facility] No provided Primary Care 10/04/2024 [facility] No provided Primary Care 09/23/2024 [facility] No provided Primary Care 09/20/2024 [facility] Primary Care 08/21/2024 [facility] Primary Care 08/20/2024 [facility] Primary Care 07/09/[address] [facility] Primary Care 07/07/2024 [facility] Dani Amado Primary Care 05/2024 [facility] Maximino [facility] Primary Care 05/23/2024 [facility] 05/03/2024 [facility] Primary Care 2023 [facility] Primary Care 03/31/2024 01/22/2025 [facility] Primary Care 03/31/2024 [facility] Primary Care 03/30/2024 [facility] 12/08/2023 [employer] [facility] 12/03/2023 [facility] 11/03/2023 [facility] 07/08/2023 07/08/2023 [facility] 07/02/2023 [facility] Primary Care 07/02/2023 [facility] 05/23/2023 024 [facility] 03/10/2023 03/14/2025 [facility] 03/10/2023 [facility] Aneudy Louise Primary Care [facility] Hazar Primary Care 11/28/2022 [facility] BRITNEY LAMAS Primary Care 11/18/20222022 [facility] Samantha Borja [place] [facility] 11/12/2022 11/12/2022 [facility] Primary Care 11/12/2022 [facility] 10/30/2022 03/10/2022 [facility] Jesus Manuel Primary Care 10/30/2022 [facility] 10/21/2022 10/21/2022 [facility] Nataliia Primary Care 08/19/2022 09/02/19 [facility] Primary [facility] 08/19/2022 [facility] Primary Care 07/25/2022 [facility] Primary Care 07/23/2022 07/23/2022 [place] [employer] [facility] 07/08/2022 [facility] [employer] [facility] Primary Care 05/28/2021 07/08/[address]22 [facility] 05/23/2021 04/18/20 24 [facility] Primary Care 202008/19/2022
--- OUTSIDE RECORDS SUMMARY | 2025-04-14 09:16 | XMS_ITS | Encounter Summary ---
Author Organization [facility] Address [address] [place] [address] Care Team Providers Care Religious Leader Name Role Phone Maximino William MD Primary Care Provider [phone] Bill Quintero MD Unavailable Encounter Details Date Type Department Care Team (Late st Contact Info) Description 01/01/2018 Scanned Document [facility] Urologic Surgery [address] [place] [address] Provider, MD Scottie [address] [place] [address] Social History Tobacco Use Types Packs/Day Years Used Date Smoking Tobacco: Former Smokeless Tobacco: Never Comments:quit 1977 Alcohol Use Standard Drinks/Week Comments Yes 5 (1 standard drink = 0.6 oz pur [...] Care Team (Late st Contact Info) Description 05/08/2025 8:30 AM EDT Consult [facility] Department of Physiatry [place] [address] [place] [phone] Daina Michelle MD [address] [facility] [address] [place], [place] [address] 05/09/2025 1:15 PM EDT Appointment [facility] [address] [place] [address] Collette Hall MD [address], [place] [phone] documented as of this encounter Visit Diagnoses Not on filedocumented in this encounter Care Teams Religious Leader Relationship Specialty Start Date End Date Maximino William MD [address] [place] [id number] PCP - General Internal Medicine 08/04/16 Bill Quintero MD [address] [place] [phone] Hr Analyst Cardiovascular Disease 07/27/18 documented as of this encounter
--- OUTSIDE RECORDS SUMMARY | 2025-04-14 09:17 | XMS_ITS | Clinical Summary ---
Author Organization [facility] Address [address] [place] [address] Care Team Providers Care Iron Installer Name Role Phone Maximino William MD Primary Care Provider Allergies Active Allergy Reactions Criticality Noted Date Comments Aspergillus Allergy Skin Test 07/29/2017 Other reaction(s): Other Watery eyes and runny nose Trichophyton Other (See Comments) 07/29/2017 Watery eyes and runny nose Medications Medication Sig Dispensed Refills Start Date End Date Status methocarbamol (ROBAXIN) 750 MG tabletIndications:Mu sculoskeletal Pain Take 1 tablet (750 mg total) by mouth 2 (two) times a day. 0 Active buPROPion (WELLBUTRIN XL) 300 MG 24 hr tabletIndications:Ma radha Depressive Disorder Take 1 tablet (300 mg total) by mouth daily. Taken with 1- 150 mg tablet for total dose 450 mg. 0 Active gabapentin (NEURONTIN) 100 MG capsuleIndications:N europathic Pain Take 1 capsule (100 mg total) by mouth 2 (two) times a day. 0 Active VITAMIN B-12 1000 MCG PO TABSIndications:Ofelia min B12 Deficiency Take 1 tablet (1,000 mcg total) by mouth daily. 0 Active Multiple Vitamins-Minerals (CENTRUM ADULTS) TABSIndications:home med Take 1 tablet by mouth daily. 0 Active baclofen (LIORESAL) 10 MG tabletIndications:Mu scle Spasm Take 1 tablet (10 mg total) by mouth 3 (three) times a day. 0 12/25/2017 Active Cholecalciferol (VITAMIN D) 2000 units tabletIndications:Vi tamin D Deficiency Take 2,000 Units by mouth daily with lunch. 0 Active diazePAM (VALIUM) tablet 5 mgIndications:Anxiet y Take 1 tablet (5 mg total) by mouth every 8 (eight) hours as needed for anxiety. 0 Active spironolactone (ALDACTONE) tablet 25 mgIndications:Left Diastolic Heart Failure Take 1 tablet (25 mg total) by mouth daily. 30 tablet 1 11/19/2020 Active Additional Information Patient taking differently:25 mg OralEvery Evening, Indications: Left Diastolic Heart Failure, Reason: Other, Reported on 03/18/2024 SUMAtriptan Succinate (IMITREX) 6 MG/0.5ML SOAJIndications:Migr tanisha Inject 0.5 mL (6 mg total) under the skin once. 0 12/23/2000 Active linaclotide (Linzess) 145 MCG CAPSIndications:Embedded Software Programmer caleb Idiopathic Constipation Take 1 capsule (145 mcg total) by mouth daily as needed. 0 Active Probiotic Product (PROBIOTIC DAILY PO)Indications:home supplement Take 1 tablet by mouth daily with lunch. 0 Active pravastatin (PRAVACHOL) tablet 40 mg Take 0.5 tablets (20 mg total) by mouth daily. 30 tablet 0 08/11/2022 Active albuterol 108 (90 Base) MCG/ACT inhalerIndications:B ronchospasm Inhale 2 puffs into the lungs every 6 (six) hours as needed for wheezing. 18 g 1 08/11/2022 Active methylPREDNISolone (MEDROL) 4 MG tablet TAKE ONE TABLET BY MOUTH DAILY 30 tablet 0 09/29/2022 Active Additional Information Patient taking differently: 4 mg Oral Daily as needed, gout, Reason: Other, Reported on 03/18/2024 traZODone (DESYREL) 50 MG tablet Take 1 tablet (50 mg total) by mouth daily with lunch. 0 12/28/2022 Active metoprolol succinate (TOPROL-XL) 24 hr tablet 25 mg TAKE 1 TABLET DAILY 90 tablet 3 04/01/2023 Active Additional Information Patient taking differently: 25 mg Oral Daily, Reason: Other, Reported on 03/18/2024 dapagliflozin (Farxiga) 10 MG tabletIndications:Ch ronic diastolic congestive heart failure (HCC) Take 1 tablet (10 mg total) by mouth daily. 30 tablet 1 02/17/2024 Active potassium chloride ER (K-DUR,KLOR-CON) tablet 20 mEqIndications:Hypok alemia Take 1 tablet (20 mEq total) by mouth every other day. 90 tablet 1 02/17/2024 Active Additional Information Patient taking differently:20 mEq OralDaily with lunch, Indications: Hypokalemia, Reason: Other, Reported on 03/18/2024 allopurinol (ZYLOPRIM) 100 MG tablet TAKE 1 TABLET DAILY 90 tablet 3 02/24/2024 Active Additional Information Patient taking differently: 100 mg Oral Every Night at Bedtime, Reason: Other, Reported on 03/18/2024 FLUoxetine (PROzac) 20 MG capsule Take 2 capsules (40 mg total) by mouth daily. 0 Active omeprazole (PriLOSEC) 40 MG capsule Take 1 capsule (40 mg total) by mouth daily. 0 Active torsemide (DEMADEX) 100 MG tabletIndications:Ed negin Take 1 tablet (100 mg total) by mouth daily. 60 tablet 1 04/07/2024 Active buPROPion (WELLBUTRIN XL) 150 MG 24 hr tablet 0 04/05/2024 Active FLUoxetine (PROzac) 40 MG capsule 0 06/01/2024 Active mirtazapine (REMERON) 15 MG tablet 0 03/28/2024 Active colchicine 0.6 MG tablet For the onset of a gout flare, on the first day, take 1 tablet every hour for three hours. On the second day, take 2 tablets once daily. Then, take 1 tablet per day until symptoms resolve. 30 tablet 1 09/21/2024 Active Active Problems Problem Noted Date Diagnosed Date Acute on chronic heart failu re with preserved ejection fraction (HFpEF) 08/07/2022 High coronary artery calcium score 03/21/2022 Overview: Known none obstructive ASHD in 2019 CTA coronaries Ca scroe 1382 Acute on chronic diastolic (congestive) heart fa ilure 02/06/2022 Stage 4 chronic kidney disease 11/28/2021 Anemia of renal disease 11/28/2021 Secondary hyperparathyroidism 11/28/2021 Heart failure 11/09/2020 H/O pericardiectomy 09/06/2019 Chronic constrictive idiopathic pericarditis CHF (congestive heart failur e), NYHA class II, acute on chronic, systolic 07/24/2019 CHF (congestive heart failur e), NYHA class I, acute on chronic, combined 07/23/2019 Shortness of breath 05/01/2019 Acute renal failure (ARF) 05/01/2019 Chronic diastolic congestive heart failure 04/18 Last Assessment & Plan: NYHA III, warm [...] interested in talking with our palliative care CARD HAND Katey and I will send her a message today. Hypertension 04/18/2019 Cervical spondylosis without myelopathy 04/18/20 Chronic pain syndrome 04/18/2019 Major depressive disorder 04/18/2019 Ascending aortic aneurysm 04/18/2019 Overview: 4.6 cm 2019 In [address] [facility] 4.5 cm without contrast FLAKO (obstructive sleep apnea) 04/18/2019 Resolved Problems Problem Noted Date Diagnosed Date Resolved Date Mediastinal lymphadenopathy 04/18/2019 08/27/2019 Immunizations Name Administration Dates Next Due Covid-19 (Moderna 12+) 100mcg/0.5mL dosage 11/25,10/28/2020 Covid-19 (Moderna Booster 18+) 0.25mL dosage Influenza TIV (IM) (inactive) 06/16/2018 Influenza Trivalent (Fluzone /Afluria) 5.0mL Multi-dose Vial 06/02/2017 Tdap 12/18/2022 Family History Medical History Relation Name Comments Heart disease Father Hypertension Mother Relation Name Status Comments Father Mother Social History Tobacco Use Types Packs/Day Years Used Date Smoking Tobacco: Former Cigarettes 1.5 6 Q uit: 08/31/1976 Smokeless Tobacco: Never Tobacco Cessation:Counseling Given: Not Answered Alcohol Use Standard Drinks/Week Comments Yes 0 (1 standard drink = 0.6 oz pur e alcohol) 2-3 per week Sex and Gender Information Value Date Recorded Sex Assigned at Male 07/27/2018 2:07 PM EST Gender Identity Male 07/28/2018 1:28 PM EST Sexual Orientation Not on file Job Start Date Occupation Industry Not on file Not on file Not on file Last Filed Vital Signs Vital Sign Reading Time Taken Comments Blood Pressure 144/90 07/19/2024 9:55 AM EST Pulse 59 07/19/2024 9:55 AM EST Temperature 36.5 C (97.7 F) 03/21/2024 1:00 PM EDT Respiratory Rate 17 03/21/2024 5:30 PM EDT Oxygen Saturation 93% 03/21/2024 5:30 PM EDT Inhaled Oxygen Concentration - - Weight 102.1 kg (225 lb) 07/19/2024 9:55 AM EST Height 165.1 cm (5' 5 ) 07/19/2024 9:55 AM EST Body Mass Index 37.44 07/19/2024 9:55 AM EST Plan of Treatment Health Maintenance Due Date Last Done Comments Hepatitis C Screening 1954 Depression Screening 1966 Preventative Health Evaluation 1972 Colon Cancer Screening (Colonoscopy) 12/13/1999 Shingrix-Zoster Vaccine (1 of 2) 2004 Fall Risk Assessment 12/13/2019 COVID-19 Vaccine ( season) 2024 05/27/2022, 08/20/2021, 11/25/2020, Additional history exists Influenza Vaccine (#1) 2025 2, 05/29/2021, 05/27/2020, Additional history exists BMI Counseling 07/19/2025 07/19/2024, 1010/2023, 06/23/2023, Additional history exists RSV Adult > 60+ Yrs or (1 - 1-dose 75+ series) 2029 DTap / Tdap / Td (3 - Td or Tdap) 12/18/2032 12/18/2022, 01/23/2015 Pneumococcal Vaccine Completed 05/29/2021, 04/19/20 Hepatitis B Vaccines Aged Out No long er eligible based on patient's age to complete this topic RSV Ped < 20 months Aged Out No longe r eligible based on patient's age to complete this topic Medical Devices Implanted Type Area Burning Supervisor Device Identifier Shelf Expiration Date Model / Serial / Lot Device Angio-Seal Vip .035in 70cm 6fr Valuelink Guidewire - [id number] - [id number] Implanted:2018 at [facility] and [facility] (Quantity not on file) [employer] [id number] / / Device Angio-Seal Vip .038in 70cm 8fr Hemostatic Closure - [id number] - [id number] Implanted:2020 at [facility] and [facility] (Quantity not on file) [employer] [id number] / / System Cardiac Cardiomems Pulmonary Artery Sensor Delivery - [id number] - [id number] Implanted:Qty: 1 on 01/29/2021 at [facility] and [facility] [employer] CM PATIENT SYSTEM / / Explanted Type Area Burning Supervisor Device Identifier Shelf Expiration Date Model / Serial / Lot Hemasorb 4 Gm - [id number] - [id number] Explanted:Qty: 1 on 08/16/2019 by Jesse Bautista MD at [facility] and [facility] N/A: Chest Wall [employer] 02/27/2022 [id number] / [id number] Advance Directives For more information, please contact: [phone] Documents on File Type Date Recorded Patient Hide Sorter Expl anation Advance Directive and Living Will 09/19/2021 10:52 AM MAXIMINO WILLIAM [phone] Passenger Firer 08/02/2019 12:[address] Passenger Firer 08/02/2019 Sent To Do cument [facility]rections Latest Code Status on File Code Status Date Activated Date Inactivated Comments Full Code 03/21/2024 11:58 AM 03/22/2024 12:11 AM Thi s code status was ascertained in the following way per MD . Code Status History Code Status Date Activated Date Inactivated Comments DNR 08/07/2022 3:42 PM 08/11/2022 10:27 PM Thi s code status was ascertained in the following way: discussion with patient . Full Code 02/27/2022 12:40 PM 02/27/2022 10:21 PM Thi s code status was ascertained in the following way: discussion with patient . Full Code 02/06/2022 8:18 PM 02/07/2022 10:45 PM This code status was ascertained in the following way: discussion with patient . Full Code 01/02/2022 4:22 PM 01/03/2022 12:42 PM This c ode status was ascertained in the following way: discussion with patient . Care Teams Iron Installer Relationship Specialty Start Date End Date Mxaimino William MD [address] [place] [address] PCP - General Internal Medicine 07/20/17
--- OUTSIDE RECORDS SUMMARY | 2025-04-14 09:17 | XMS_ITS | Patient Health Record ---
Author Organization [facility] Address [address] [place] [id number] Care Team Providers Care Video Games Mechanic Name Role Phone Maximino William MD Primary Care Provider DENTON Torre Unavailable [phone] Reason For Referral No Information Medications Medication SIG (Take, Route, Fr equency, Duration) Notes Start Date End Date Status methadone 10 mg 1 tab(s) orally every 8 hours Active Robaxin-750 750 mg 2 tab(s) orally 3 ti mes a day; Duration: 5 day(s) Active oxyCODONE 30 mg 1 tab(s) orally every 6 hours Active gabapentin 300 mg 1 cap(s) orally 3 ti mes a day; Duration: 30 day(s) Active baclofen 10 mg 1 tab(s) orally 3 ti mes a day; Duration: 30 day(s) Active Problems Problem Type SNOMED Code ICD Code Onset Dates Problem Status W/U Status Risk Notes Problem Episode of depression (finding) (394974944) Other depressive episodes (F32.8) Active confirmed Problem Heart disease, unspecified (I51.9) Active confirmed Plan Of Treatment Pending Test Test Name Order Date [facility] Report 05/10/2015 [facility] Report 06/21/2015 [facility] Report 12/27/2015 [facility] Report 05/27/2017 [facility] Report 07/30/2017 TYPE AND SCREEN 04/24/2015 Insurance Providers Payer Name Payer Address Payer Phone Subscriber Number Group Number Insured Name Patient Relationship to Insured Coverage Start Date Coverage End Date [employer] [address] [place] [address] [id number] KARIN LOPEZ Self - patient is the insured Medical (General) History Medical History History ICD Code Heart disease, unspecified I51.9 Other depressive episodes F32.8 Surgical History Surgery Date(Month/Year) Lumbar surgery - Dr. Vitale 1973 & 199 2 Lumbar surgery - Dr. Garcia 04/24/2015 Sacroiliac surgery - Dr. Garcia 012 Back surgery x2 - Dr. Garcia 03/2012 Right shoulder surgery - Dr. Mina 08/2008 Cervical - Dr. Garcia 06/30/2009 Open heart surgery 07/2019 Cervical - Dr. carroll 16 Lumbar spine surgeries Hernia repair Left total knee arthroplasty Hospitalization History Reason Date(Month/Year)
--- OUTSIDE RECORDS SUMMARY | 2025-04-14 09:17 | XMS_ITS | Clinical Summary ---
Author Organization [facility] Address [address] [place] [address] Care Team Providers Care Deliverer Outside Name Role Phone Unavailable Primary Care Provider Unavailabl e Social History Tobacco Use Types Packs/Day Years Used Date Smoking Tobacco: Never Assessed Sex and Gender Information Value Date Recorded Sex Assigned at Not on file Legal Sex Male 1:07 AM EST Gender Identity Not on file Sexual Orientation Not on file Plan of Treatment Not on file
--- OUTSIDE RECORDS SUMMARY | 2025-04-14 09:17 | XMS_ITS | Patient Health Record ---
Author Organization [facility] Address [address] [address] Care Team Providers Care Director Of Vendor Management Name Role Phone Dr Maximino William Primary Care Provider Babak Pradhan Unavailable [phone] Reason For Referral No Information Medications Medication SIG (Take, Route, Frequency, Duration) Notes Start Date End Date Status diazePAM 5 MG Tablet Oral; Duration: 90 Days Active FLUoxetine HCl 40 MG Capsule Oral; Duration: 30 Days Active Spironolactone 25 MG Tablet Oral; Duration: 90 Days Active traZODone HCl 50 MG Tablet Oral; Duration: 90 Days Active Allopurinol 100 MG Tablet Oral; Duration: 90 Days Active Baclofen 10 MG Tablet Oral; Duration: 90 Days Active Torsemide 100 MG Tablet Oral; Duration: 90 Days Active Methocarbamol 750 MG Tablet Oral; Duration: 90 Days Active oxyCODONE HCl 5 MG Tablet Oral; Duration: 2 Days Active Colchicine 0.6 MG Tablet Oral; Duration: 24 Days Active buPROPion HCl ER (XL) 300 MG Tablet Extended Release 24 Hour Oral; Duration: 90 Days Acti ve Klor-Con M20 20 MEQ Tablet Extended Release Oral; Duration: 90 Days Active Farxiga 10 MG Tablet Oral; Duration: 90 Days Active buPROPion HCl ER (XL) 150 MG Tablet Extended Release 24 Hour Oral; Duration: 90 Days Acti ve Social History Section Notes: Does not smoke or drink alco hol Problems Problem Type SNOMED Code ICD Code Onset Dates Problem Status W/U Status Risk Notes Problem Abnormal chest CT (R93.89) Active confirmed Vital Signs Heart Rate 65 /min 09/13/2024 Temperature 98.4 degrees Fahrenheit 09/13/2024 Height-cm 170.18 cm 09/13/2024 Oximetry 96 % 09/13/2024 Blood pressure diastolic 73 mm Hg 09/13/2024 Weight-kg 100.05 kg 09/13/2024 Height 67 in 09/13/2024 Blood pressure systolic 121 mm Hg 09/13/2024 Weight 220.6 lbs 09/13/2024 BMI 34.55 kg/m2 09/13/2024 Encounters Encounter Location Date Provider Diagnosis [facility] [address] [facility] [address] [place] [address] 09/13/2024 Babakmagan Paredes Lung nodules R91.8 ; Closed fracture of multiple ribs of left side with routine healing, subsequent encounter S22.42XD ; Abnormal chest CT R93.89 and Aneurysm of ascending aorta without rupture I71.21 [facility] [address] [facility] [address] [facility] [place] [address] 11/15/2024 Babak Paredes Assessments Encounter Date Diagnosis (ICD Code) Assessment Notes Treatment Notes Treatment Clinical Notes Section Notes 09/13/2024 Lung nodules (ICD-10 - R91.8) Patient is about [id number] smoking history but quit 40 years ago. He has small lung nodules, smaller than 6 mm in size, stable for more than 2 years. He does not need further follow-up for those lung nodules and it was discussed in the visit today.He denies symptoms of COPD. He is not very active and does not feel shortness of breath. Denies any recurrent respiratory tract infections. 09/13/2024 Closed fracture of multiple ribs of left side with routine healing, subsequent encounter (ICD-10 - S22.42XD) Left fourth fifth and sixth rib fractures noted on CT scans which are most likely secondary to his history of falls. He does not complain of chest pain currently. He is on pain medication for back pain already. No symptoms of pneumonia. 09/13/[address] (ICD-10 - R93.89) CT chest showed lung nodules and metallic device in right pulmonary artery which is the CardioMEMS device. It showed atelectasis which is most likely secondary to rib fractures and chronic back pain. His oxygenation is adequate. 09/13/2024 Aneurysm of ascending aorta without rupture (ICD-10 - I71.21) Thoracic aortic aneurysm, 4.6 cm in size. Discussed to follow-up with cardiology, Dr Garrett 09/13/2024 Other Follow up with me PRN Plan Of Treatment No Information Insurance Providers Payer Name Payer Address Payer Phone Subscriber Number Group Number Insured Name Patient Relationship to Insured Coverage Start Date Coverage End Date [facility] [address] [place], [place] [phone] [id number] Marlon Bender Self - patient is the insured 4 Medical (General) History Hospitalization History Reason Date(Month/Year) Severe lower back pain. 09/09/2024
--- NOTE | 2025-04-14 09:18 | MHC.OFFVIS ---
Vital Signs 04/14/25 09:32 Height 5 ft 5 in Weight 230 lb BMI 38.3 BP 141/80 H Blood Pressure Location Rt brachial Position Sitting Pulse 56 Pulse Source Pulse Oximeter Pulse Oximetry (%) 97 Oxygen Delivery Method Room Air Intake Visit Reasons: Pain pump Intake Note: Pain today 710 Allergies adhesive tape Allergy (Unknown, Verified 04/14/25 07:06) Rash alcohol (From Mastisol Adhesive) Allergy (Unknown, Verified 04/14/25 07:06) Rash gum mastic (From Mastisol Adhesive) Allergy (Unknown, Verified 04/14/25 07:06) Rash methyl salicylate (From Mastisol Adhesive) Allergy (Unknown, Verified 04/14/25 07:06) Rash storax (From Mastisol Adhesive) Allergy (Unknown, Verified 04/14/25 07:06) Rash HPI Comments Details: The patient is a 69-year-old male presenting with the need for intrathecal pain pump management. The patient was previously under the care of Dr. Gomez and Dr. Armando at the [facility], which closed abruptly, leaving him without a provider to refill his pain pump. The pain pump contains concentration of morphine 10 mg/ml and bupivacaine 5.2 mg/ml in Synchromed II 20 ml ITP, and it was last filled in either December. He reports his was implanted about 4 years ago. Current ITPP settings: Continuous infusion- 1.137 mg/day PTM- 0.120 mg, LO 90 min, Bolus restriction 2 boluses/3hr, 6 boluses per day The patient has a history of 15 total spinal surgeries, including right sacroiliac joint fusion, thoracic laminectomy with rods, and lumbar laminectomy with fusion down to the sacrum. He was recommended to receive a left sacroiliac injection but has not yet undergone this procedure. Patient reports chronic pain since 1970 due to football injury and severe arthritis and disc degeneration disease. He reports undergoing multiple nerve blocks and disc injections, multiple courses of physical therapy, chiropractic manipulations, massage therapy, acupuncture, occupational therapy, verbal medicine, TENS unit and home traction unit for managing chronic pain. Patient also receives ongoing psychological counseling for chronic pain, anxiety and depression through multiple places. The patient experiences chronic pain in his upper and lower back with periods of exacerbation and relief. He has been on oral opioids and benzodiazepines in the past and continues to take gabapentin. His pain management history includes the use of an intrathecal pain pump, which has been beneficial until recent issues with refills. The patient's medical history includes gout, muscle spasm, depression, lumbar postlaminectomy syndrome, anxiety, congestive heart failure, chronic kidney disease, hypertension, hyperlipidemia, and headaches. He has undergone multiple surgeries, including cervical and lumbar spine, left knee replacement, bilateral shoulder surgeries, carpal tunnel surgeries and heart surgery with h/o pericarditis. - Onset: Chronic pain with exacerbations every week to 10 days - Quality: Severe pain that prevents movement, sitting, and sleeping; -06/09 constant - Location: Middle and lower of the back, affecting joints and knees - Exacerbating factors: Sitting and attempting to stand, walking, movements, weather changes - Relieving factors: Standing for a short period - Interference: Affects mobility, sleep, and daily activities - Affect: Pain impacts mobility and daily functioning - Analgesia: Current use of intrathecal pain pump with morphine and bupivacaine; previously on oral opioids and benzodiazepines - Adverse Effects: No specific adverse effects discussed - Activities of Daily Living: Pain affects ability to sit, stand, and sleep - Aberrant Drug Related Behaviors: No aberrant behaviors reported [facility] Medical History (Updated 04/15/25 @ 19:25 by JORDANA Moss) Sports injury (~1970) Chronic headaches Lumbar degenerative disc disease Arthritis Presence of intrathecal pump Pericarditis Chronic pain Postlaminectomy syndrome of lumbar region Hypercholesterolemia Anxiety Depression Muscle spasm Gout Surgical History (Updated 04/15/25 @ 19:08 by JORDANA Moss) H/O lumbosacral spine surgery Hx of cervical spine surgery History of total left knee replacement History of shoulder surgery H/O heart surgery S/P insertion of intrathecal pump Social History Alcohol intake: current Alcohol intake frequency: holidays/special occasions only Patient Tobacco Use Status: Never used Tobacco Review of Systems Const Details: - Musculoskeletal: Reports chronic pain, muscle spasms, and joint pain - Neurological: Reports headaches - Cardiovascular: Denies chest pain, reports history of congestive heart failure - Psychiatric: Reports depression and anxiety All systems reviewed & are unremarkable except as noted in HPI and below Physical Exam Vital Signs: Last Vital Signs Pulse 56 04/14/25 09:32 BP 141/80 H 04/14/25 09:32 Pulse Ox 97 08/15/25 09:32 Oxygen Delivery Method Room Air 04/14/25 09:32 BMI result Body Mass Index 38.3 General: Appears afebrile. Alert and oriented. Mood and affect appropriate. Follows and participates in conversation appropriately. Respiratory effort is unlabored. No cough. Able to transition from sit to stand unassisted. Ambulates with bilaterally normal heel strike and toe off. General: Yes no CVA tenderness Back/Spine/Pelvis Other: Limited lumbar and cervical ROM due to pain and prior surgeries. Well-healed cervical and lumbar multiple incisions. Ambulates with antalgic gait with mild limping. Self mobile with the use of cane. Positive facet loading bilaterally. No midline tenderness in the cervical, thoracic or lumbar spine. ITP palpated in the right lower abdomen, nontender. Back: no CVA tenderness Cervical Spine: cervical muscular tenderness, pain with cervical ROM, Cervical spine scars present and No Cervical spine tenderness Thoracic/Lumbar Spine: thoracic and lumbar spine normal to inspection, Thoracic/lumbar spine scar(s), Lasegue's sign negative, straight leg raise negative bilaterally, pain with thoraco-lumbar ROM, paraspinal muscle tenderness, thoraco-lumbar ROM limited, No thoracic spinal tenderness and No lumbar spinal tenderness Sacroiliac joints: bilaterally tender to palpation Psych Appearance: grossly normal and well kempt Mental Status: mental status grossly normal Speech and movement: Normal speech and movement present and Clear speech present Affect: normal affect Attitude: cooperative Thought process: Normal thought process present Thought content: Normal thought content present, suicidality (none), no hallucinations and Depressive thoughts present Insight: Good insight present (Psych) Judgement: Good judgement present (Psych) Assessment & Plan Assessment & Plan (1) Chronic pain syndrome: Code(s): G89.4 - Chronic pain syndrome Category: Medical (2) Presence of intrathecal pump: Code(s): Z97.8 - Presence of other specified devices Category: Medical (3) Lumbar degenerative disc disease: Code(s): M51.369 - Other intervertebral disc degeneration, lumbar region without mention of lumbar back pain or lower extremity pain Category: Medical (4) Postlaminectomy syndrome of lumbar region: Code(s): M96.1 - Postlaminectomy syndrome, not elsewhere classified Category: Medical (5) Chronic neck and back pain: Code(s): M54.2 - Cervicalgia; M54.9 - Dorsalgia, unspecified; G89.29 - Other chronic pain Category: Medical Plan The plan involves establishing care for the patient's intrathecal pain pump management, which includes a urine drug screen to assess current medications in the system before refilling the pump. His pain pump was interrogated today and report was scanned into EMR. Current concentration of morphine 10 mg/ml and bupivacaine 5.2 mg/ml in Synchromed II 20 ml ITPP. Current volume 3.2 ml. Continuous infusion- 1.137 mg/day PTM- 0.120 mg, LO 90 min, Bolus restriction 2 boluses/3hr, 6 boluses per day Consideration for potential upgrading to a larger pump was discussed to reduce refill frequency. The patient is advised to bring previous imaging studies for review during follow-up visits. We will request reports from PCP and [facility] in [place]. All questions and concerns have been answered and patient agreed with the treatment plan. Follow up for ITDD refill and sooner as needed. Patient was informed and verbally consented to the use of an ambient scribe for clinic note documentation during this visit. Coding Level of Care Code New Pt Level 4 (47597) Diagnoses Chronic pain syndrome G89.4 Presence of intrathecal pump Z97.8 Lumbar degenerative disc disease M51.369 Postlaminectomy syndrome of lumbar region M96.1 Chronic neck and back pain M54.2; M54.9; G89.29
[2025-04-14 09:32] VITALS: BP 141/80; PULSE 56; O2SAT 97; BMI 38.3
== END 2025-04-14 10:07 | disposition home or self-care (01) ==
LOC: HO.PMC 08:59
PROVIDERS: PCP Internal Medicine; Visit Provider Nurse Practitioner Family
DX: G89.4 Chronic pain syndrome (principal); Z97.8 Presence of other specified devices; M51.369 Other intervertebral disc degeneration, lumbar region without mention of lumbar back pain or lower extremity pain; M96.1 Postlaminectomy syndrome, not elsewhere classified; M54.2 Cervicalgia; M54.9 Dorsalgia, unspecified; G89.29 Other chronic pain
CPT/HCPCS: 99204

== ENCOUNTER → 2025-04-14 08:58 | Outpatient (BNVA) | payer MEDICARE, SELFPAY | PROVIDERS: PCP Internal Medicine; Visit Provider Nurse Practitioner Family | DX: G89.4 Chronic pain syndrome (principal); Z97.8 Presence of other specified devices; M51.369 Other intervertebral disc degeneration, lumbar region without mention of lumbar back pain or lower extremity pain; M96.1 Postlaminectomy syndrome, not elsewhere classified; M54.2 Cervicalgia | CPT/HCPCS: 99202 ==

== ENCOUNTER 2025-04-19 13:22 | Outpatient (AMB) | payer MEDICARE, SELFPAY ==
--- NOTE | 2025-04-19 13:38 | A.OFFVIS_ITS ---
Vital Signs 04/19/25 13:39 Height 5 ft 5 in Weight 236 lb BMI 39.3 BP 149/75 H Blood Pressure Location Lt brachial Position Sitting Respiration 18 Pulse 53 Pulse Source Pulse Oximeter Pulse Oximetry (%) 96 Oxygen Delivery Method Room Air Intake Visit Reasons: ITTD Pump Refill Machine Baster Required: No Allergies adhesive tape Allergy (Unknown, Verified 04/19/25 13:38) Rash alcohol (From Mastisol Adhesive) Allergy (Unknown, Verified 04/19/25 13:38) Rash gum mastic (From Mastisol Adhesive) Allergy (Unknown, Verified 04/19/25 13:38) Rash methyl salicylate (From Mastisol Adhesive) Allergy (Unknown, Verified 04/19/25 13:38) Rash storax (From Mastisol Adhesive) Allergy (Unknown, Verified 04/19/25 13:38) Rash HPI Comments Details: Marlon is in my office to perform pain pump refill. He submitted his urine drug screen however his pump is about to get empty and even though the UDS is not back yet we ordered the medication and we will perform the refill of the pump. The patient is suffering from postlaminectomy syndrome. He stated that he had 15 surgeries on his back. 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 See refill of the pain pump as below. Prior: The patient is a 69-year-old male presenting with the need for intrathecal pain pump management. The patient was previously under the care of Dr. Gomez and Dr. Armando at the [facility], which closed abruptly, leaving him without a provider to refill his pain pump. The pain pump contains concentration of morphine 10 mg/ml and bupivacaine 5.2 mg/ml in Synchromed II 20 ml ITP, and it was last filled in either December. He reports his was implanted about 4 years ago. Current ITPP settings: Continuous infusion- 1.137 mg/day PTM- 0.120 mg, LO 90 min, Bolus restriction 2 boluses/3hr, 6 boluses per day The patient has a history of 15 total spinal surgeries, including right sacroiliac joint fusion, thoracic laminectomy with rods, and lumbar laminectomy with fusion down to the sacrum. He was recommended to receive a left sacroiliac injection but has not yet undergone this procedure. Patient reports chronic pain since 1969 due to football injury and severe arthritis and disc degeneration disease. He reports undergoing multiple nerve blocks and disc injections, multiple courses of physical therapy, chiropractic manipulations, massage therapy, acupuncture, occupational therapy, verbal medicine, TENS unit and home traction unit for managing chronic pain. Patient also receives ongoing psychological counseling for chronic pain, anxiety and depression through multiple places. The patient experiences chronic pain in his upper and lower back with periods of exacerbation and relief. He has been on oral opioids and benzodiazepines in the past and continues to take gabapentin. His pain management history includes the use of an intrathecal pain pump, which has been beneficial until recent issues with refills. The patient's medical history includes gout, muscle spasm, depression, lumbar postlaminectomy syndrome, anxiety, congestive heart failure, chronic kidney disease, hypertension, hyperlipidemia, and headaches. He has undergone multiple surgeries, including cervical and lumbar spine, left knee replacement, bilateral shoulder surgeries, carpal tunnel surgeries and heart surgery with h/o pericarditis. - Onset: Chronic pain with exacerbations every week to 10 days - Quality: Severe pain that prevents movement, sitting, and sleeping; 4-06/09 constant - Location: Middle and lower of the back, affecting joints and knees - Exacerbating factors: Sitting and attempting to stand, walking, movements, weather changes - Relieving factors: Standing for a short period - Interference: Affects mobility, sleep, and daily activities - Affect: Pain impacts mobility and daily functioning - Analgesia: Current use of intrathecal pain pump with morphine and bupivacaine; previously on oral opioids and benzodiazepines - Adverse Effects: No specific adverse effects discussed - Activities of Daily Living: Pain affects ability to sit, stand, and sleep - Aberrant Drug Related Behaviors: No aberrant behaviors reported [facility] Medical History (Updated 04/15/25 @ 19:25 by JORDANA Moss) Sports injury (~1969) Chronic headaches Lumbar degenerative disc disease Arthritis Presence of intrathecal pump Pericarditis Chronic pain Postlaminectomy syndrome of lumbar region Hypercholesterolemia Anxiety Depression Muscle spasm Gout Surgical History (Updated 04/15/25 @ 19:08 by JORDANA Moss) H/O lumbosacral spine surgery Hx of cervical spine surgery History of total left knee replacement History of shoulder surgery H/O heart surgery S/P insertion of intrathecal pump Social History Alcohol intake: current Alcohol intake frequency: holidays/special occasions only Patient Tobacco Use Status: Never used Tobacco Review of Systems Const All systems reviewed & are unremarkable except as noted in HPI and below Physical Exam Vital Signs: Last Vital Signs Pulse 53 04/19/25 13:39 Resp 18 04/19/25 13:39 BP 149/75 H 04/19/25 13:39 Pulse Ox 96 04/19/25 13:39 Oxygen Delivery Method Room Air 04/19/25 13:39 BMI result Body Mass Index 39.3 General: Appears afebrile. Alert and oriented. Mood and affect appropriate. Follows and participates in conversation appropriately. Respiratory effort is unlabored. No cough. Able to transition from sit to stand unassisted. Ambulates with bilaterally normal heel strike and toe off. General: Yes no CVA tenderness Back/Spine/Pelvis Other: Limited lumbar and cervical ROM due to pain and prior surgeries. Well-healed cervical and lumbar multiple incisions. Ambulates with antalgic gait with mild limping. Self mobile with the use of cane. Positive facet loading bilaterally. No midline tenderness in the cervical, thoracic or lumbar spine. ITP palpated in the right lower abdomen, nontender. Back: no CVA tenderness Cervical Spine: cervical muscular tenderness, pain with cervical ROM, Cervical spine scars present and No Cervical spine tenderness Thoracic/Lumbar Spine: thoracic and lumbar spine normal to inspection, Thoracic/lumbar spine scar(s), Lasegue's sign negative, straight leg raise nega tive bilaterally, pain with thoraco-lumbar ROM, paraspinal muscle tenderness, thoraco-lumbar ROM limited, No thoracic spinal tenderness and No lumbar spinal tenderness Sacroiliac joints: bilaterally tender to palpation Psych Appearance: grossly normal and well kempt Mental Status: mental status grossly normal Speech and movement: Normal speech and movement present and Clear speech present Affect: normal affect Attitude: cooperative Thought process: Normal thought process present Thought content: Normal thought content present, suicidality (none), no hallucinations and Depressive thoughts present Insight: Good insight present (Psych) Judgement: Good judgement present (Psych) Assessment & Plan Assessment & Plan (1) Chronic pain syndrome: Code(s): G89.4 - Chronic pain syndrome Category: Medical (2) Presence of intrathecal pump: Code(s): Z97.8 - Presence of other specified devices Category: Medical (3) Lumbar degenerative disc disease: Code(s): M51.369 - Other intervertebral disc degeneration, lumbar region without mention of lumbar back pain or lower extremity pain Category: Medical (4) Postlaminectomy syndrome of lumbar region: Code(s): M96.1 - Postlaminectomy syndrome, not elsewhere classified Category: Medical (5) Chronic neck and back pain: Code(s): M54.2 - Cervicalgia; M54.9 - Dorsalgia, unspecified; G89.29 - Other chronic pain Category: Medical Plan: Intrathecal pain pump refill ? THE PATIENT CAME TODAY IN the office FOR THE CHANGE OF THE MEDICATION IN her PAIN PUMP. The name and date of were verified and informed consent was obtained for the procedure. ? ?The pump was interrogated and the residual amount of fluid was found to be?2.3 mL . SHE WAS POSITIONED prone on the bed, AREA OF THE INTRATHECAL PUMP WAS PREPPED WITH CHLORAPREP. The fenestrated drape was sterilely applied over the area of the pump. Sterile gloves were worn and of the aspiration system was assembled containing 2 in 22 gauge noncoring needle, the needle was connected to extension tubing which was connected to the 20 cc sterile syringe. The pain pump was palpated under the skin in the patient's? buttock area. The needle was inserted through the skin and the central plug of the pain pump and fluid was aspirated. The clear fluid was going into the syringe the total amount of the fluid was 3.5 mL .. After that a new batch? of medication was obtained which was containing morphine in concentration of 10 milligrams/mL and bupivacaine 5.2 milligrams/mL. ?The admixture was made in 20 cc syringe prepared by [facility] compounding pharmacy. The syringe was connected to the bacterial filter, and then connected to the extension tubing. After that the medication in the syringe was slowly instilled into the pump with aspirations at 15 and 5 cc kim.? The pump was reprogrammed for the continues rate of 1.137 mg a day and on demand doses PTM of 0.1-0 mg with corresponding ropivacaine 0.0623 mg with 6 boluses per day lockout duration 1 hour 30 minutes and restriction window of 2 boluses only in 3 hours. The patient tolerated procedure well.? No immediate complications were observed.? Plan Next pump refill will be performed in 93 days. I will increase concentration of his bupivacaine from 5 milligrams/mL to 10 milligrams/mL. Patient reports pain 6/10 at rest and higher level of pain with activity. I will continue observation of this patient and I will continue escalation of the bupivacaine until side effects occur or until pain relief is better. Patient Instructions: I here by testify that I spent 33 minutes in conversation with this patient as well as planning his care and organizing this note. Coding Level of Care Code Est Pt Level 4 (23984) Procedure Only Diagnoses Chronic pain syndrome G89.4 Presence of intrathecal pump Z97.8 Lumbar degenerative disc disease M51.369 Postlaminectomy syndrome of lumbar region M96.1 Chronic neck and back pain M54.2; M54.9; G89.29
[2025-04-19 13:39] VITALS: BP 149/75; PULSE 53; RESP 18; O2SAT 96; BMI 39.3
--- OUTSIDE RECORDS SUMMARY | 2025-04-19 14:16 | XMS_ITS | Clinical Summary ---
Author Organization [facility] Address [address] [place] [address] Care Team Providers Care Quantitative Analyst Name Role Phone Maximino William MD Primary Care Provider [phone] Allergies Active Allergy Reactions Criticality Noted Date [...] 0 12/23/2000 Active linaclotide (Linzess) 145 MCG CAPSIndications:Recycling Or Rubbish Collector caleb Idiopathic Constipation Take 1 capsule (145 [...] interested in talking with our palliative care COMPUTER TECHNOLOGY TEACHER Katey and I will send her a message today. Hypertension 04/18/2019 Cervical spondylosis without myelopathy 04/18/20 Chronic pain syndrome 04/18/2019 Major depressive disorder 04/18/2019 Ascending aortic aneurysm 04/18/2019 Overview: 4.6 cm 2019 [address] scan at [facility] 4.5 cm without contrast FLAKO (obstructive sleep [...] this topic Medical Devices Implanted Type Area Crop Puller Device Identifier Shelf Expiration Date Model / Serial / Lot Device Angio-Seal Vip .035in 70cm 6fr Valuelink Guidewire - [id number] - [id number] Implanted:2018 at [facility] and [facility] (Quantity not on file) [employer] [id number] / / Device Angio-Seal Vip .038in 70cm 8fr Hemostatic Closure - [id number] - [id number] Implanted:2020 at [facility] [place] and [facility] (Quantity not on file) [employer] [id number] / / System Cardiac Cardiomems Pulmonary Artery Sensor Delivery - [id number] - [id number] Implanted:Qty: 1 on 01/29/2021 at [facility] [place] and [facility] [employer] CM PATIENT SYSTEM / / Explanted Type Area Crop Puller Device Identifier Shelf Expiration Date Model / Serial / Lot Hemasorb 4 Gm - [id number] - [id number] Explanted:Qty: 1 on 08/16/2019 by Jesse Bautista MD at [facility] and [facility] N/A: Chest Wall [employer] 02/27/2022 OS-[id number] / [id number] Advance Directives For more information, please contact: [phone] Documents on File Type Date Recorded Patient Enrollment Counselor Expl anation Advance Directive and Living Will 09/19/2021 10:52 AM MAXIMINO WILLIAM [phone] Power of Physical Chemist 08/02/2019 12:00 AM Power of Physical Chemist 08/02/2019 Sent To Do cument Corrections Latest [...] way: discussion with patient . Care Teams Quantitative Analyst Relationship Specialty Start Date End Date Maximino William MD [address] [place] [address] PCP - General Internal Medicine 07/20/17
--- OUTSIDE RECORDS SUMMARY | 2025-04-19 14:16 | XMS_ITS | Encounter Summary ---
Author Organization [facility] Address [address] [facility] [address] [place] [address] Phone Care Team Providers Care Shank Inspector Name Role Phone Maximino William MD Primary Care Provider [phone] Encounter Details Date Type Department Care Team (Late st Contact Info) Description 11/17/2014 Scanned Document [facility] [address] [place] [address] Victor M Armando, DO [address] [id number] Social History Tobacco Use Types Packs/Day Years [...] on filedocumented in this encounter Care Teams Shank Inspector Relationship Specialty Start Date End Date Maximino William MD [address] [place] [address] PCP - General Internal Medicine 11/13/14 documented as of this encounter
--- OUTSIDE RECORDS SUMMARY | 2025-04-19 14:16 | XMS_ITS | Encounter Summary ---
Author Organization [facility] Address [address] [place] [address] Care Team Providers Care Detective Narcotics And Vice Name Role Phone Maximino William MD Primary Care Provider [phone] Bill Quintero MD Unavailable Encounter Details Date Type Department Care Team (Late st Contact Info) Description 01/01/2018 Scanned Document [facility] [address] [place] [address] Provider, MD Scottie [address] [place] [address] Social History Tobacco Use Types Packs/Day Years [...] Info) Description 05/08/2025 8:30 AM EDT Consult [facility] Department of Physiatry [place] [address] [place] [phone] Daina Michelle MD [address] [facility] [address] [place], [place] [id number] 05/09/2025 1:15 PM EDT Appointment [facility] [address] [place] [address] Collette Hall MD [address] [place], [place] [id number] documented as of this encounter Visit Diagnoses Not on filedocumented in this encounter Care Teams Detective Narcotics And Vice Relationship Specialty Start Date End Date Maximino William MD [address] [place] [id number] PCP - General Internal Medicine 08/04/16 Bill Quintero MD [address] [place] [phone] Shuttle Fitting Supervisor Cardiovascular Disease 07/27/18 documented as of this encounter
--- OUTSIDE RECORDS SUMMARY | 2025-04-19 14:16 | XMS_ITS | Encounter Summary ---
Author Organization [facility] Address [address] [place] [address] Care Team Providers Care Baseball Player Name Role Phone Maximino William MD Primary Care Provider [phone] Maximino William MD Unavailable Bill Quintero Unavailable Jesus Manuel Duncan Unavailable Santhosh Lockhart Unavailable Unavailable Jasiel Eleuterio Unavailable Hemachjoyce Ali Unavailable Encounter Details Date Type Department Care Team (Late st Contact Info) Description 01/15/2012 Orders Only [facility] [address] [place], [place] [id number] Maximino William MD [address] [place] [address] Social History Tobacco Use Types Packs/Day Years [...] [facility] Primary Care [address] [place] [address], [place] [address] Maximino William MD [address] [facility] [address] Return in about 6 months (around 09/16/2025) for Follow up, dyslipidemia, Hypertension. documented as of this encounter Visit Diagnoses Not on filedocumented in this encounter Care Teams Baseball Player Relationship Specialty Start Date End Date Maximino William MD [address] [place] [address], [place] [address] PCP - General 04/06/23 Maximino William MD [address] [place] [address], [place] [address] PCP - Backup PCP Internal Medicine 09/30/23 Bill Quintero [address] [place] [address] Cardiology 03/23/24 Jesus Manuel Duncan [address] [place] [address] Nephrology 03/23/24 Santhosh Lockhart [address] [place] [address] Urology 03/23/24 Eleuterio Weathers [address] [place] [address] [address] [place] [address] Optometry 10/31/24 Collette Hall [address] [place] [address] [address] [place] [address] Gastroenterology 03/16/25 documented as of this encounter
--- OUTSIDE RECORDS SUMMARY | 2025-04-19 14:16 | XMS_ITS | Clinical Summary ---
Author Organization [facility] Address [address] [place] [address] Phone Care Team Providers Care Reactor Fueling Supervisor Name Role Phone Maximino William MD Primary Care Provider [phone] Allergies Active Allergy Reactions Criticality Noted Date [...] failu re with preserved ejection fraction (HFpEF) ([facility] V24, [facility] V28) 08/07/2022 High coronary artery calcium score 03/21/2022 Overview (04/26/2024): Known none obstructive ASHD in 2019 CTA coronaries Ca scroe 1382 Acute on chronic diastolic ( congestive) heart failure ([facility] V24, [facility] V28) 02/06/2022 Anemia of renal disease 11/28/2021 Secondary hyperparathyroidism ([facility] V24) 10/31 Stage 4 chronic kidney disease ([facility] V24, [facility] V28) 11/28/2021 Heart failure ([facility] V24, [facility] V28) 021 Chronic constrictive idiopathic pericarditis CHF (congestive heart failur e), NYHA class II, acute on chronic, systolic ([facility] V24, [facility] V28) 07/24/2019 CHF (congestive heart failur e), NYHA class I, acute on chronic, combined ([facility] V24, [facility] V28) 07/23/2019 Acute renal failure (ARF) ([facility] V24) 05/01/20 19 Shortness of breath 05/01/2019 Ascending aortic aneurysm ([facility] V24) 04/18/20 19 Overview (04/26/2024): 4.6 cm 2019 In March 19- chest [facility] scan at [facility] 4.5 cm without contrast Cervical spondylosis without myelopathy 04/18/20 19 Chronic diastolic congestive heart failure ([facility] V24, [facility] V28) 04/18/2019 Overview (04/26/2024): Last [...] interested in talking with our palliative care BUSINESS LIBRARIAN Katey and I will send her a message today. Chronic pain syndrome 04/18/2019 Hypertension 04/18/2019 Major depressive disorder 04/18/2019 FLAKO (obstructive sleep apnea) 04/18/2019 Encounters Date Type Department Care Team Description 04/13/2025 Billing Patient Not Present [facility] [place] [facility] [address] [place] [address] Bre Ayoub PA Chronic diastolic congestive heart failure ([facility] V24, [facility] V28) (Primary Dx) 04/07/2025 Telephone [facility] [place] [facility] [address] [place] [address] Racheal Rodriguez RN 03/13/2025 Billing Patient Not Present [facility] [place] [facility] [address] [place] [address] Bre Ayoub PA 03/06/2025 Billing Patient Not Present [facility] [place] [facility] [address] [place] [address] Bre Ayoub PA CHF (congestive heart failure), NYHA class II, acute on chronic, systolic ([facility] V24, [facility] V28) (Primary Dx) 03/06/2025 Billing Patient Not Present [facility] Non-Invasive Cardiology [address] [place] [address] Bre Ayoub PA Chronic diastolic congestive heart failure ([facility] V24, [facility] V28) (Primary Dx) 01/30/2025 Billing Patient Not Present [facility] [place] [facility] [address] [place] [address] Bre Ayoub PA Chronic diastolic congestive heart failure ([facility] V24, [facility] V28) (Primary Dx) from Last [...] NON SIMULTANEOUS; Surgeon: Jesse Patton MD; Location: [facility]; Service: Cardiology; Laterality: N/A; CARDIAC CATHETERIZATION 08/08/2019 Right PROCEDURE:CARDIAC CATHETERIZATION;COMMENT:Procedure: RIGHT / LEFT HEART CATHETERIZATION SIMULTANEOUS; Surgeon: Jesse Patton MD; Location: [facility]; Service: Cardiology; Laterality: Right; PERICARDIECTOMY 08/16/2019 N/A PROCEDURE:PERICARDIECTOMY;COMMENT: Procedure: sternotomy PERICARDECTOMY/ PERICARDIAL STRIPPING WITHOUT CABG; Surgeon: Jesse Bautista MD; Location: [facility]; Service: Cardiovascular; Laterality: N/A; OTHER SURGICAL HISTORY 08/16/2019 N/A PROCEDURE:TRANSESOPHAGEAL ECHOCARDIOGRAM (RADHA) (CONTRAST/3D PRN);COMMENT:Procedure: TRANSESOPHAGEAL ECHOCARDIOGRAPHY; Surgeon: Jesse Bautista MD; Location: [facility]; Service: Cardiovascular; Laterality: N/A; CARDIAC CATHETERIZATION 11/15/2020 Right PROCEDURE:CARDIAC CATHETERIZATION;COMMENT:Procedure: RIGHT / LEFT HEART CATHETERIZATION SIMULTANEOUS; Surgeon: Jesse Ptaton MD; Location: [facility]; Service: Cardiology; Laterality: Right; CARDIAC CATHETERIZATION 01/02/2022 Right PROCEDURE:CARDIAC CATHETERIZATION;COMMENT:Procedure: RIGHT / LEFT HEART CATHETERIZATION SIMULTANEOUS WITHOUT ANGIO; Surgeon: Ladan Morales MD; Location: [facility]; Service: Cardiology; Laterality: Right; HAND SURGERY PROCEDURE:HAND SURGERY SHOULDER SURGERY PROCEDURE:SHOULDER SURGERY CARDIAC CATHETERIZATION 02/27/2022 N/A PROCEDURE:CARDIAC CATHETERIZATION;COMMENT:Procedure: RIGHT HEART CATHETERIZATION / BIOPSY; Surgeon: Ladan Morales MD; Location: [facility]; Service: Cardiology; Laterality: N/A; CARDIAC CATHETERIZATION 03/21/2024 N/A PROCEDURE:CARDIAC CATHETERIZATION;COMMENT:Procedure: LEFT HEART CATHETERIZATION; Surgeon: Ladan Morales MD; Location: [facility]; Service: Cardiology; Laterality: N/A; Medical History Medical [...] Arrhythmia DX:Arrhythmia CHF (congestive heart failur e) ([facility] V24, [facility] V28) DX:CHF (congestive heart abiola lure) ([facility]) Hyperlipidemia DX:Hyperlipidemi a Sleep apnea DX:Sleep apnea End stage renal disease ([facility] V24, [facility] V28) DX:End stage renal disease ( [facility]) Migraine headache DX:Migraine he adache Depression DX:Depression Visual impairment DX:Visual impa irment Shingles DX:Shingles High blood pressure DX:High bloo d pressure Hyperlipidemia DX:Hyperlipidemi a DAMIAN (dyspnea on exertion) DX:DAMIAN (dyspnea on exertion) Angina pectoris ([facility] V24) DX :Angina pectoris ([facility]) Coronary artery disease Family History [...] this topic Medical Devices Implanted Type Area Environmental Protection Economist Device Identifier Shelf Expiration Date Model / Serial / Lot Device Angio-Seal Vip .035in 70cm 6fr [employer] - [id number] Implanted:2018 (Quantity not on file) [employer] abeo [id number] / / Device Angio-Seal Vip .038in 70cm 8fr Hemostatic Closure - [id number] Implanted:2020 (Quantity not on file) [employer] ab[employer]o [id number] / / System Cardiac Cardiomems Pulmonary Artery Sensor Delivery - [id number] Implanted:Qty: 1 on 01/29/[address] [employer] CRMD++DNU+ABBT/ST JU CM PATIENT SYSTEM / / Procedures Procedure Name Priority Date/Time Associated Diagnosis Comments BASIC METABOLIC PANEL Routine 09/11/2024 8:46 AM EST HEMOGLOBIN A1C Routine 11/13/2020 from Last 3 Months or Most Recently Relevant to Health Maintenance Results * (ABNORMAL) Basic metabolic panel (09/11/2024 8:46 AM EST) Sodium 133(L) 135 - 145 mmol/L LAB CHEMISTRY METHOD 09/11/2024 9:51 AM EST [facility] Potassium 4.1 3.5 - 5.1 mmol/L LAB CHEMISTRY METHOD 09/11/2024 9:51 AM EST [facility] Chloride 98 98 - 107 mmol/L LAB CHEMISTRY METHOD 09/11/2024 9:51 AM EST [facility] CO2 23(L) 24 - 32 mmol/L LAB CHEMISTRY METHOD 09/11/2024 9:51 AM [facility] Anion Gap 12 5 - 14 LAB CHEMISTRY METHOD 09/11/2024 9:51 AM [facility] Glucose 102 70 - 199 mg/dL LAB CHEMISTRY METHOD 09/11/2024 9:51 AM [facility] BUN 24(H) 9 - 20 mg/dL LAB CHEMISTRY METHOD 09/11/2024 9:51 AM [facility] Creatinine 1.30 0.70 - 1.30 mg/dL LAB CHEMISTRY METHOD 09/11/2024 9:51 AM [facility] eGFR 59(L) >=60 mL/min/1. 73m2 LAB CHEMISTRY METHOD 09/11/2024 9:51 AM [facility] Comment:Calculation based on the Chronic Kidney Disease Epidemiology Collaboration (CKD-EPI) equation refit without adjustment for race. BUN/Creatinine Ratio 18.5 12.0 - 20.0 LAB CHEMISTRY METHOD 09/11/2024 9:51 AM [facility] Calcium 8.7 8.4 - 10.2 mg/dL LAB CHEMISTRY METHOD 09/11/2024 9:51 AM [facility] Blood Venous blood specimen / Unknown Venipuncture / Unknown 09/11/2024 8:46 AM EST 09/11/2024 9:07 AM EST Yoav Pelaez MD LAB BLOOD ORDERABLES Final Res ult [facility] [address] [place] [address], [place] [phone] * Hemoglobin A1c (11/13/2020) Hemoglobin A1C 5.1 <=5.7 % Blood Venous blood specimen / Unknown us Historical Provider LAB BLOOD ORDERABLES Ignacia l Result from Last 3 Months or Most Recently Relevant to Health Maintenance Insurance [employer] Advance Directives Documents on File Type Date Recorded Patient Health Safety Instructor Expl anation Health Care Decision (hx) 01/02/2022 [...] currently active code status orders. Care Teams Reactor Fueling Supervisor Relationship Specialty Start Date End Date Maximino William MD PCP - General Internal Medicine 07/20/17
--- OUTSIDE RECORDS SUMMARY | 2025-04-19 14:16 | XMS_ITS | Patient Health Record ---
Author Organization [facility] Address [address] [place] [id number] Care Team Providers Care Fire Inspector Name Role Phone Maximino William MD Primary Care Provider DENTON Torre Unavailable [phone] Reason For Referral No Information Medications Medication [...] Risk Notes Problem Episode of depression (finding) (731488351) Other depressive episodes (F32.8) Active confirmed Problem [...] Date [employer] [address] [facility] [place] [address] [id number] KARIN LOPEZ Self - patient is the [...]
--- OUTSIDE RECORDS SUMMARY | 2025-04-19 14:17 | XMS_ITS | Patient Health Record ---
Author Organization [facility] Address [address] [address] Care Team Providers Care Chinese Medicine Practitioner Name Role Phone Dr Maximino William Primary Care Provider Babak Pradhan Unavailable [phone] Reason For Referral No Information Medications Medication [...] Date Provider Diagnosis [facility] [address] [facility] [address] [place] [address] 09/13/2024 Babakmagan Paredes Lung nodules R91.8 ; Closed fracture of multiple ribs of left side with routine healing, subsequent encounter S22.42XD ; Abnormal chest CT R93.89 and Aneurysm of ascending aorta without rupture I71.21 [facility] [address] [facility] [address] [facility] [place] [address] 11/15/2024 Babak Paredes Assessments Encounter Date Diagnosis (ICD Code) Assessment Notes Treatment Notes Treatment Clinical Notes Section Notes 09/13/2024 Lung nodules (ICD-10 - R91.8) Patient is about [id number] smoking history but quit 40 years ago. [...] Insured Coverage Start Date Coverage End Date [facility] [address] [place], [place] [id number] Marlon Bender Self - patient is the insured 4 Medical (General) History Hospitalization History Reason Date(Month/Year) Severe lower back pain. 09/09/2024
--- OUTSIDE RECORDS SUMMARY | 2025-04-19 14:17 | XMS_ITS | Clinical Summary ---
Author Organization [facility] Address [address] [place] [address] Care Team Providers Care Jet Blade Polisher Name Role Phone Unavailable Primary Care Provider [...]
== END 2025-04-19 14:06 | disposition home or self-care (01) ==
LOC: HO.PMC 13:22
PROVIDERS: PCP Internal Medicine; Visit Provider Anesthesiology
DX: G89.4 Chronic pain syndrome (principal); Z97.8 Presence of other specified devices; M51.369 Other intervertebral disc degeneration, lumbar region without mention of lumbar back pain or lower extremity pain; M96.1 Postlaminectomy syndrome, not elsewhere classified; Z45.1 Encounter for adjustment and management of infusion pump; M54.2 Cervicalgia; M54.9 Dorsalgia, unspecified; G89.29 Other chronic pain
CPT/HCPCS: 62370; 99214

== ENCOUNTER → 2025-04-19 13:22 | Outpatient (BNVA) | payer MEDICARE, SELFPAY | PROVIDERS: PCP Internal Medicine; Visit Provider Anesthesiology | DX: Z45.1 Encounter for adjustment and management of infusion pump (principal); M96.1 Postlaminectomy syndrome, not elsewhere classified; M51.369 Other intervertebral disc degeneration, lumbar region without mention of lumbar back pain or lower extremity pain; M54.2 Cervicalgia; M54.9 Dorsalgia, unspecified; G89.29 Other chronic pain; Z97.8 Presence of other specified devices | CPT/HCPCS: 62370; 99212 ==

== ENCOUNTER → 2025-08-02 15:24 | Outpatient (AMB) | payer MEDICARE, SELFPAY ==
--- OUTSIDE RECORDS SUMMARY | 2022-04-19 08:14 | XMS_ITS | Encounter Summary ---
Author Organization [facility] Address [address] [place] [address] Care Team Providers Care Tube Roller Name Role Phone Maximino William MD Primary Care Provider [phone] Bill Quintero MD Unavailable Encounter Details Date Type Department Care Team (Late st Contact Info) Description 04/19/2022 9:14 AM EDT Hospital Encounter [facility] [address] [place] [address] Kyle Perez MD [address] [place] [address] Social History Tobacco Use Types Packs/Day Years Used Date Smoking Tobacco: Former Cigarettes 1.5 10 0 01/11/1967 - 01/11/1977 Smokeless Tobacco: Never Alcohol Use Standard Drinks/Week Comments Not Currently 7 (1 standard drink = 0.6 oz pur e alcohol) approx 2x/week Sex and Gender Information Value Date Recorded Sex Assigned at Male 12/30/2022 12:02 PM EDT Legal Sex Male 4:19 PM EST Gender Identity Male 10/29/2020 2:51 AM EST Sexual Orientation Heterosexual (straight) 10/29 2:51 AM EST COVID-19 Exposure Response Date Recorded In the last 10 days, have yo u been in contact with someone who was confirmed or suspected to have Coronavirus/COVID-19? No / Unsure 01/13/2023 11:02 AM EDT documented as of this encounter Plan of Treatment Upcoming Encounters Date Type Department Care Team (Late st Contact Info) Description 08/08/2025 9:15 AM EST Appointment [facility] [address] [place] [address] Collette Hall MD [address] [place] [address] 08/17/2025 10:00 AM EST Procedure visit MG PAIN [facility]MT [id number] [address] [place] [address] [place] [phone] Nash Reyes MD [address] [facility] [address] [place] [address] 09/04/2025 3:30 PM EST Office Visit [facility] [place] [address] [place] [address] [place] [address] Carmen Mcdaniel, PADadaC 35 [facility] 5 [place] [address] documented as of this encounter Procedures Procedure Name Priority Date/Time Associated Diagnosis Comments XR FOOT 3+ VIEWS-RIGHT STAT 04/19/2022 9:24 AM EDT Right foot pain documented in this encounter Results * XR Foot 3+ views-Right (04/19/2022 9:24 AM EDT) Anatomical Region Laterality Modality Foot Right Computed Radiogr aphy 04/19/2022 9:30 AM EDT Impressions 04/19/2022 9:33 AM EDT 1. Nondisplaced fracture at the base of the first distal phalanx. Narrative 04/19/2022 9:33 AM EDT XR FOOT 3+ VIEWS-RIGHT 04/19/2022 9:32 AM HISTORY: right foot pain COMPARISON(S): None. TECHNIQUE: AP, lateral, and oblique radiographs of the right foot were obtained. FINDINGS: There is a nondisplaced fracture involving the lateral aspect of the base of the first distal phalanx. The alignment is anatomic without subluxation or dislocation. No joint space narrowing, erosions or osteophytes are present. There is no appreciable soft tissue swelling, subcutaneous emphysema or radio-opaque foreign object. There is small calcaneal spur. Procedure Note Shashi Downing MD - 04/19/2022 XR FOOT 3+ VIEWS-RIGHT 04/19/2022 9:32 AM HISTORY: right foot pain COMPARISON(S): None. TECHNIQUE: AP, lateral, and oblique radiographs of the right foot wereobtained. FINDINGS: There is a nondisplaced fracture involving the lateral aspect of the baseof the first distal phalanx. The alignment is anatomic without subluxationor dislocation. No joint space narrowing, erosions or osteophytes arepresent. There is no appreciable soft tissue swelling, subcutaneous emphysema or radio-opaque foreignobject. There is small calcaneal spur. IMPRESSION: 1. Nondisplaced fracture at the base of the first distal phalanx. Estefany You GASKET FORMER [facility] ORDERA BLES Final Result documented in this encounter Visit Diagnoses Not on filedocumented in this encounter Care Teams Tube Roller Relationship Specialty Start Date End Date Maximino William MD [address] [place] [address] PCP - General Internal Medicine 08/04/16 Bill Quintero MD [address] [place] [address] Pediatric Genetic Counselor Cardiovascular Disease 07/27/18 documented as of this encounter
--- OUTSIDE RECORDS SUMMARY | 2024-11-21 10:07 | XMS_ITS | Encounter Summary ---
Author Organization [facility] Address [address] [place] [address] Care Team Providers Care Oil Well Service Unit Operator Name Role Phone Maximino William MD Primary Care Provider [phone] Encounter Details Date Type Department Care Team (Late st Contact Info) Description 11/21/2024 11:07 AM EDT Hospital Encounter [facility] [address] [address] Social History Tobacco Use Types Packs/Day Years [...] Orientation Heterosexual (straight) 10/29 2:51 AM EST documented as of this encounter Plan of Treatment Upcoming Encounters Date Type Department Care Team (Late st Contact Info) Description 08/08/2025 9:15 AM EST Appointment [facility] [address] [address] Collette Hall MD [address] [place] [id number] 08/17/2025 10:00 AM EST Procedure visit MG PAIN MGMT [id number] [address] [facility] [place] [address] [place] [phone] Nash Reyes MD 35 [facility] 5 [place] [address] 09/04/2025 3:30 PM EST Office [facility] [place] [address] [facility] [address] [place] [address] Carmen Mcdaniel PADadaC 35 [facility] 5 [place] [address] documented as of this encounter Procedures Procedure Name Priority Date/Time Associated Diagnosis Comments LUIGI ARCHIVE FOR REFERENCE ONLY MR Routine 11/21/2024 11:10 AM EDT documented in this encounter Results * LUIGI Archive for reference only MR (11/21/2024 11:10 AM EDT) Narrative [facility] - 11/21/2024 11:07 AM EDT This order has been auto-finalized and does not contain a result. us File Room Provider IMG DIGITIZE FILMS Final Resu lt [facility] documented in this encounter Visit Diagnoses Not on filedocumented in this encounter Care Teams Oil Well Service Unit Operator Relationship Specialty Start Date End Date Maximino William MD [address] [facility] [place] [address] PCP - General Internal Medicine 08/04/16 documented as of this encounter
[2025-08-02 15:35] VITALS: BP 140/78; PULSE 75; RESP 16; O2SAT 96; BMI 37.6
--- NOTE | 2025-08-02 15:35 | A.OFFVIS_ITS ---
Vital Signs 08/02/25 15:35 Height 5 ft 5 in Weight 226 lb BMI 37.6 BP 140/78 H Blood Pressure Location Lt brachial Position Sitting Respiration 16 Pulse 75 Pulse Source Pulse Oximeter Pulse Oximetry (%) 96 Oxygen Delivery Method Room Air Intake Visit Reasons: Med Discussion Environmental Science Instructor Required: No Accompanied by: Self / Same As Patient Allergies adhesive tape Allergy (Unknown, Verified 08/02/25 15:35) Rash alcohol (From Mastisol Adhesive) Allergy (Unknown, Verified 08/02/25 15:35) Rash gum mastic (From Mastisol Adhesive) Allergy (Unknown, Verified 08/02/25 15:35) Rash methyl salicylate (From Mastisol Adhesive) Allergy (Unknown, Verified 08/02/25 15:35) Rash storax (From Mastisol Adhesive) Allergy (Unknown, Verified 08/02/25 15:35) Rash HPI Comments Details: Marlon is in my office again to discuss the oral medications he to receive from his pain management physician in [place]. He was on 2 different muscle relaxants baclofen and cyclobenzaprine. The patient reported today significant back muscle spastic activity which interferes with his ADLs and prevents him to have a good night sleep. I explained to the patient that 1st of all the combination of baclofen and cyclobenzaprine is dangerous. I also asked the patient if he feels any pain relief with delivery of the PTM doses of morphine in his pain pump. He denied pain improvement. This is very likely scenario his PTM dose is 10 times smaller than continuous dose patient receives over 24 hours. The continuous dose leads to increase tolerance. I offered the patient today instead of prescribing him oral baclofen and cyclobenzaprine to prescribe him baclofen intrathecally. To accommodate his condition I would need to add 300 micro g of baclofen to current admixture of morphine 10 milligrams/mL and bupivacaine 5.2 milligrams/mL. I will continue escalating baclofen further to improve patient's condition. Prior: The patient is a 69-year-old male presenting with the need for intrathecal pain pump management. The patient was previously under the care of Dr. Gomez and Dr. Armando at the [facility], which closed abruptly, leaving him without a provider to refill his pain pump. The pain pump contains concentration of morphine 10 mg/ml and bupivacaine 5.2 mg/ml in Synchromed II 20 ml ITP, and it was last filled in either December. He reports his was implanted about 4 years ago. Current ITPP settings: Continuous infusion- 1.137 mg/day PTM- 0.120 mg, LO 90 min, Bolus restriction 2 boluses/3hr, 6 boluses per day The patient has a history of 15 total spinal surgeries, including right sacroiliac joint fusion, thoracic laminectomy with rods, and lumbar laminectomy with fusion down to the sacrum. He was recommended to receive a left sacroiliac injection but has not yet undergone this procedure. Patient reports chronic pain since 1969 due to football injury and severe arthritis and disc degeneration disease. He reports undergoing multiple nerve blocks and disc injections, m ultiple courses of physical therapy, chiropractic manipulations, massage therapy, acupuncture, occupational therapy, verbal medicine, TENS unit and home traction unit for managing chronic pain. Patient also receives ongoing psychological counseling for chronic pain, anxiety and depression through multiple places. The patient experiences chronic pain in his upper and lower back with periods of exacerbation and relief. He has been on oral opioids and benzodiazepines in the past and continues to take gabapentin. His pain management history includes the use of an intrathecal pain pump, which has been beneficial until recent issues with refills. The patient's medical history includes gout, muscle spasm, depression, lumbar postlaminectomy syndrome, anxiety, congestive heart failure, chronic kidney disease, hypertension, hyperlipidemia, and headaches. He has undergone multiple surgeries, including cervical and lumbar spine, left knee replacement, bilateral shoulder surgeries, carpal tunnel surgeries and heart surgery with h/o pericarditis. - Onset: Chronic pain with exacerbations every week to 10 days - Quality: Severe pain that prevents movement, sitting, and sleeping; 4-10/10 constant - Location: Middle and lower of the back, affecting joints and knees - Exacerbating factors: Sitting and attempting to stand, walking, movements, weather changes - Relieving factors: Standing for a short period - Interference: Affects mobility, sleep, and daily activities - Affect: Pain impacts mobility and daily functioning - Analgesia: Current use of intrathecal pain pump with morphine and bupivacaine; previously on oral opioids and benzodiazepines - Adverse Effects: No specific adverse effects discussed - Activities of Daily Living: Pain affects ability to sit, stand, and sleep - Aberrant Drug Related Behaviors: No aberrant behaviors reported [facility] Medical History (Updated 04/28/25 @ 09:21 by Leeanna Dewitt) Ventral hernia Urinary incontinence Umbilical hernia Stage 3 chronic kidney disease Restless leg syndrome Right wrist pain Reflux esophagitis Pulmonary nodule Hypertension Osteoarthritis of left knee Opioid dependence, uncomplicated Obstructive sleep apnea Mixed hyperlipidemia Mild emphysema Major depressive disorder in full remission Insomnia Idiopathic gout Hypokalemia Hyperuricemia Hyperreninism Foraminal stenosis of cervical region Erectile dysfunction Diverticulitis of colon Dilated aortic root Diastolic CHF Cervical spondylosis Cervical spondylitis Cardiac murmur Bloating Bipolar disorder Bilateral edema of lower extremity Aneurysm, aorta, thoracic Allergic rhinitis Sports injury (~1970) Chronic headaches Lumbar degenerative disc disease Arthritis Presence of intrathecal pump Pericarditis Chronic pain Postlaminectomy syndrome of lumbar region Hypercholesterolemia Anxiety Depression Muscle spasm Gout Surgical History (Updated 04/28/25 @ 09:21 by Leeanna Dewitt) Personal history of spine surgery Hx of pericardiotomy H/O lumbosacral spine surgery Hx of cervical spine surgery History of total left knee replacement History of shoulder surgery H/O heart surgery S/P insertion of intrathecal pump Social History Alcohol intake: current Alcohol intake frequency: holidays/special occasions only Patient Tobacco Use Status: Never used Tobacco Review of Systems Const All systems reviewed & are unremarkable except as noted in HPI and below Physical Exam Vital Signs: Last Vital Signs Pulse 75 08/02/25 15:35 Resp 16 08/02/25 15:35 BP 140/78 H 08/02/25 15:35 Pulse Ox 96 08/02/25 15:35 Oxygen Delivery Method Room Air 08/02/25 15:35 BMI result Body Mass Index 37.6 General: Appears afebrile. Alert and oriented. Mood and affect appropriate. Follows and participates in conversation appropriately. Respiratory effort is unlabored. No cough. Able to transition from sit to stand unassisted. Ambulates with bilaterally normal heel strike and toe off. General: Yes no CVA tenderness Back/Spine/Pelvis Other: Limited lumbar and cervical ROM due to pain and prior surgeries. Well-healed cervical and lumbar multiple incisions. Ambulates with antalgic gait with mild limping. Self mobile with the use of cane. Positive facet loading bilaterally. No midline tenderness in the cervical, thoracic or lumbar spine. ITP palpated in the right lower abdomen, nontender. Back: no CVA tenderness Cervical Spine: cervical muscular tenderness, pain with cervical ROM, Cervical spine scars present and No Cervical spine tenderness Thoracic/Lumbar Spine: thoracic and lumbar spine normal to inspection, Thoracic/lumbar spine scar(s), Lasegue's sign negative, straight leg raise negative bilaterally, pain with thoraco-lumbar ROM, paraspinal muscle tenderness, thoraco-lumbar ROM limited, No thoracic spinal tenderness and No lumbar spinal tenderness Sacroiliac joints: bilaterally tender to palpation Psych Appearance: grossly normal and well kempt Mental Status: mental status grossly normal Speech and movement: Normal speech and movement present and Clear speech present Affect: normal affect Attitude: cooperative Thought process: Normal thought process present Thought content: Normal thought content present, suicidality (none), no hallucinations and Depressive thoughts present Insight: Good insight present (Psych) Judgement: Good judgement present (Psych) Assessment & Plan Assessment & Plan (1) Chronic pain syndrome: Code(s): G89.4 - Chronic pain syndrome Category: Medical (2) Presence of intrathecal pump: Code(s): Z97.8 - Presence of other specified devices Category: Medical (3) Lumbar degenerative disc disease: Code(s): M51.369 - Other intervertebral disc degeneration, lumbar region without mention of lumbar back pain or lower extremity pain Category: Medical (4) Postlaminectomy syndrome of lumbar region: Code(s): M96.1 - Postlaminectomy syndrome, not elsewhere classified Category: Medical (5) Chronic neck and back pain: Code(s): M54.2 - Cervicalgia; M54.9 - Dorsalgia, unspecified; G89.29 - Other chronic pain Category: Medical Plan: Intrathecal pain pump was interrogated today and the doses were increased on demand from 0.12 mg of bolus dose to 0.180 mg. The patient will be able to receive 6 doses per day and with lockout interval of 1 hour 30 minutes. Plan New admixture of the medication will be urgently delivered to the patient. We will try to accommodate for new pain pump refill for the patient by 08/09/2025. Coding Level of Care Code Est Pt Level 3 (66837) Procedure Only Diagnoses Chronic pain syndrome G89.4 Presence of intrathecal pump Z97.8 Lumbar degenerative disc disease M51.369 Postlaminectomy syndrome of lumbar region M96.1 Chronic neck and back pain M54.2; M54.9; G89.29
--- OUTSIDE RECORDS SUMMARY | 2025-08-02 18:23 | XMS_ITS | Encounter Summary ---
Author Organization [facility] Address [address] [place] [address] Care Team Providers Care Broke Man Name Role Phone Maximino William MD Primary Care Provider Maximino William MD Unavailable Bill Quintero Unavailable Jesus Manuel Duncan Unavailable Santhosh Lockhart Unavailable Unavailable Jasiel Eleuterio Unavailable Hemachjoyce Ali Unavailable Encounter Details Date Type Department Care Team (Late st Contact Info) Description 01/15/2012 Orders Only [facility] [address] [place], [place] [id number] Maximino William MD [address] [place] [address] Social History Tobacco Use Types Packs/Day Years [...] Description 09/19/2025 9:45 AM EST Office Visit [facility] Primary Care [address] [place] [phone] Maximino William MD [address] [place] [address] 6 months Follow up, dyslipidemia, Hypertension. documented as of this encounter Visit Diagnoses Not on filedocumented in this encounter Care Teams Broke Man Relationship Specialty Start Date End Date Maximino William MD [address] [place] [address] PCP - General 04/06/23 Maximino William MD [address] [place] [address] PCP - Backup PCP Internal Medicine 09/30/23 Bill Quintero [address] [place] [address] Cardiology 03/23/24 Jesus Manuel Duncan [address] [place] [address] Nephrology 03/23/24 Santhosh [address] [place] [address] Urology 03/23/24 Eleuterio Weathers [address] [place] [address] [address], [place] [address] Optometry 10/31/24 Collette Hall [address] [place] [address] [address] [place] [address] Gastroenterology 03/16/25 documented as of this encounter
--- OUTSIDE RECORDS SUMMARY | 2025-08-02 18:23 | XMS_ITS | Encounter Summary ---
Author Organization [facility] Address [address] [place] [address] Care Team Providers Care Bonding Equipment Operator Name Role Phone Maximino William MD Primary Care Provider [phone] Bill Quintero MD Unavailable Encounter Details Date Type Department Care Team (Late st Contact Info) Description 01/27/2018 Scanned Document [facility] Neurosurgery [address] [place] [phone] Provider, Generic Social History Tobacco Use Types Packs/Day Years [...] Description 08/08/2025 9:15 AM EST Appointment [facility] [address] [place] [address] Collette Hall MD [address] [place] [id number] 08/17/2025 10:00 AM EST Procedure visit MG PAIN MGMT [id number] 65 [facility] [address] [place] [phone] Nash Reyes MD [address] [address] 09/04/2025 3:30 PM EST Office Visit [facility] Neurosurgery [place] [address] [facility] [address] [place] [address] Carmen Mcdaniel, PA-C [address] [address] documented as of this encounter Visit Diagnoses Not on filedocumented in this encounter Care Teams Bonding Equipment Operator Relationship Specialty Start Date End Date Maximino William MD [address] [place] [address] PCP - General Internal Medicine 08/04/16 Bill Quintero MD [address] [place] [phone] Derrick Hand Cardiovascular Disease 07/27/18 documented as of this encounter
--- OUTSIDE RECORDS SUMMARY | 2025-08-02 18:23 | XMS_ITS | Encounter Summary ---
Author Organization [facility] Address [address] [place] [address] Care Team Providers Care Liquefied Petroleum Gasfitter Name Role Phone Maximino William MD Primary Care Provider [phone] Bill Quintero MD Unavailable Encounter Details Date Type Department Care Team (Late st Contact Info) Description 01/01/2018 Scanned Document [facility] Urologic Surgery [address] [place] [address] Provider, MD Scottie [address] [place] [address] Social History Tobacco Use Types Packs/Day Years Used Date Smoking Tobacco: Former Smokeless Tobacco: Never Comments:quit 1976 Alcohol Use Standard Drinks/Week Comments Yes 5 [...] Info) Description 08/08/2025 9:15 AM EST Appointment [address] [phone] Collette Hall MD [address] [place] [address] 08/17/2025 10:00 AM EST Procedure visit MG PAIN MGMT [id number] 65 [facility] [address] [place] [address] Nash Reyes MD [address] [address] 09/04/2025 3:30 PM EST Office Visit [facility] Neurosurgery [place] 35 [facility] [address] [place] [phone] Carmen Mcdaniel, PA-C [address] [address] documented as of this encounter Visit Diagnoses Not on filedocumented in this encounter Care Teams Liquefied Petroleum Gasfitter Relationship Specialty Start Date End Date Maximino William MD [address] [place] [address] PCP - General Internal Medicine 08/04/16 Bill Quintero MD [address] [place] [phone] Scuba Diving Teacher Cardiovascular Disease 07/27/18 documented as of this encounter
--- OUTSIDE RECORDS SUMMARY | 2025-08-02 18:23 | XMS_ITS | Encounter Summary ---
Author Organization [facility] Address [address] [place] [address] Care Team Providers Care Skilled Helper Name Role Phone Maximino William MD Primary Care Provider [phone] Bill Quintero MD Unavailable Encounter Details Date Type Department Care Team (Late st Contact Info) Description 01/01/2018 Scanned Document [facility] Urologic Surgery [address] [place] [address] Provider, MD Scottie [address] [place] [address] Social History Tobacco Use Types Packs/Day Years [...] Info) Description 08/08/2025 9:15 AM EST Appointment [address] [phone] Collette Hall MD [address] [place] [address] 08/17/2025 10:00 AM EST Procedure visit MG PAIN MGMT [id number] 65 [facility] [address] [place] [phone] Nash Reyes MD [address] [address] 09/04/2025 3:30 PM EST Office Visit [facility] Neurosurgery [place] 35 [facility] [address] [place] [phone] Carmen Mcdaniel, PA-C [address] [address] documented as of this encounter Visit Diagnoses Not on filedocumented in this encounter Care Teams Skilled Helper Relationship Specialty Start Date End Date Maximino William MD [address] [place] [address] PCP - General Internal Medicine 08/04/16 Bill Quintero MD [address] [place] [phone] Central Office Operator Cardiovascular Disease 07/27/18 documented as of this encounter
--- OUTSIDE RECORDS SUMMARY | 2025-08-02 18:24 | XMS_ITS | Encounter Summary ---
Author Organization [facility] Address [address] [place] [address] Care Team Providers Care Worksite Wellness Practitioner Name Role Phone Maximino William MD Primary Care Provider [phone] Maximino William MD Unavailable Bill Quintero Unavailable Jesus Manuel Duncan Unavailable Santhosh Lockhart Unavailable Unavailable Jasiel Eleuterio Unavailable Hemfelipejoyce Collette Unavailable Encounter Details Date Type Department Care Team (Late st Contact Info) Description 04/29/2024 Orders Only [facility] Primary Care [address] [place] [phone] Maximino William MD [address] [place] [address] Social History Tobacco Use Types Packs/Day Years Used Date Smoking Tobacco: Never Passive Smoke Exposure: Never Smokeless Tobacco: Never Comments:Smoking Status:No c urrent tobacco use PHQ-2 Answer Date Recorded Patient Health Questionnaire-2 Score 2 04/29/2024 Sex and Gender Information Value Date Recorded Sex Assigned at Male 03/31/2024 9:17 AM EDT Legal Sex Male 11:04 PM EDT Gender Identity Male 06/03/2023 11:04 PM EDT Sexual Orientation Straight 03/31/2024 9: 17 AM EDT documented as of this encounter Functional Status * PHQ-9 Severity Assessment Answer Date of Assessment Author Negative 04/29/2024 12:42 PM EDT [facility] * GRACE-7 Severity Assessment Answer Date of Assessment Author Negative 04/29/2024 12:42 PM EDT [facility] * GRACE-2 Severity Score Answer Date of Assessment Author 2 04/29/2024 12:42 PM EDT [facility] * PTSD Score Answer Date of Assessment Author 0 04/29/2024 12:42 PM EDT [facility] * Have you ever experienced this kind of event? Answer Date of Assessment Author 0 04/29/2024 12:42 PM EDT [facility] * How often do you have a drink containing alcohol? Answer Date of Assessment Author 2 04/29/2024 12:42 PM EDT [facility] Rabun * How many standard drinks containing alcohol do you have on a typical day when you drink alcohol? Answer Date of Assessment Author 0 04/29/2024 12:42 PM EDT [facility]un * How often do you have six or more drinks on one occasion? Answer Date of Assessment Author 0 04/29/2024 12:42 PM EDT [facility]un * AUDIT-C Score (Female or Male 65+) Answer Date of Assessment Author 2 04/29/2024 12:42 PM EDT [facility] * MYCHART AUDIT-C Q1 SCORE FEMALE OR MALE 65+ (Range 0-4) Answer Date of Assessment Author 2 04/29/2024 12:42 PM EDT [facility] Rabun * AUDIT Score (Female or Male 65+) Answer Date of Assessment Author 2 04/29/2024 12:42 PM EDT [facility] Rabun * Drug Use Pre-Screening (SQSTDU) Score Answer Date of Assessment Author 0 04/29/2024 12:42 PM EDT [facility] p Rabun * DAST-10 Score Answer Date of Assessment Author 0 04/29/2024 12:42 PM EDT [facility] Rabun * PTSD Pre-Screening Score Answer Date of Assessment Author 0 04/29/2024 12:42 PM EDT [facility] * How many times in the past year have you used an illegal/recreational drug (including cannabis/marijuana), or a prescription medication for non-medical reasons? Answer Date of Assessment Author 0 04/29/2024 12:42 PM EDT [facility] Rabun * Over the past 2 weeks, how often have you been bothered by any of the following problems? Question Answer Date of Assessment Author Patient Health Questionnaire-2 Score 2 04/02 12:42 PM EDT [facility] * Little interest or pleasure in doing things Answer Date of Assessment Author Several days 04/29/2024 12:42 PM EDT [facility] * Feeling down, depressed, or hopeless Answer Date of Assessment Author Several days 04/29/2024 12:42 PM EDT [facility] Rabun * Over the past 2 weeks, how often have you been bothered by any of the following problems? Question Answer Date of Assessment Author Patient Health Questionnaire-2 Score 2 04/02 12:42 PM EDT [facility]un * Little interest or pleasure in doing things Answer Date of Assessment Author Several days 04/29/2024 12:42 PM EDT I[facility], [facility] p Rabun * Feeling down, depressed, or hopeless Answer Date of Assessment Author Several days 04/29/2024 12:42 PM EDT I[facility], [facility] p Rabun documented as of this encounter Plan of Treatment Upcoming Encounters Date Type Department Care Team (Late st Contact Info) Description 09/19/2025 9:45 AM EST Office Visit [facility] [address] [place] [phone] Maximino William MD [address] [place] [address] 6 months Follow up, dyslipidemia, Hypertension. documented as of this encounter Goals Goal Patient Goal Type Associated Problems Recent Progress Patient-Stated? Author Blood Pressure < 140/90 Blood Pressure 118/70(05/11 9:58 AM EDT) No Tamiko Alegre RN Note: Above is your goal for blood pressure control. You may be able to prevent, reduce or eliminate the medication required for your blood pressure by regular measurement of your blood pressure at home, since home readings are often more reliable than measurements at the doctor s office. You can also improve your blood pressure by getting regular exercise, keeping a normal weight, reducing your sodium/salt intake to 2000 mg/day, reducing caffeine and by limiting your alcohol intake. Men should limit consumption to no more than 2 drinks per day (beer, wine, or mixed drinks) and women should limit to one drink per day. Follow the DASH diet, a diet low in fat, cholesterol, red meat, and sweets. It emphasizes fruits, vegetables, and low-fat dairy foods. The DASH diet also includes whole-grain products, fish, poultry, and nuts. HEMOGLOBIN A1C % < 7 Result Component 5.4(10/26/19 25 12:00 AM EST) Maximino Gilliam MD Note: Above is your goal for sugar control. Your risk for future diabetic complications such as blindness and amputation can be reduced by following your diabetic diet plan, and paying careful attention to self-monitoring your blood sugar and blood pressure at home. Please plan to check your blood sugar and blood pressure at the frequency suggested, and bring these numbers with you to your next scheduled visit. If you have difficulty reaching the goals which you have set for your diabetes your PCP can refer to one of our diabetes self-management support programs. A fasting blood sugar below 120 is ideal. documented as of this encounter Procedures Procedure Name Priority Date/Time Associated Diagnosis Comments ALBUMIN (MICROALBUMIN), RANDOM URINE, WITH CREATININE Routine 04/29/2024 1:46 PM EDT Type 2 diabetes mellitus with chronic kidney disease, without long-term current use of insulin, unspecified CKD stage documented in this encounter Results * (ABNORMAL) ALBUMIN (MICROALBUMIN), RANDOM URINE, WITH CREATININE (04/29/2024 1:46 PM EDT) Albumin (Urine) <12.0 0 - 23 mg/L [facility] Creatinine (Urine) 30(L) 60 - 200 mg/dL [facility] 04/29/2024 1:46 PM EDT 04/29/2024 9:19 PM EDT Narrative [facility] - 04/29/2024 10:45 PM EDT Route to PCP? (if blank or no routes to encounter provider)->No Microalbumin<12.0, Alb/Creat Ratio Invalid Testing Performed at: [facility], [address] [facility], [place] [address], , Accounting Professor: Pallavi Rodriguez MD CL#[id number] Maximino William MD LABORATORY Final Result [facility] [address] [place] [address], documented in this encounter Visit Diagnoses Diagnosis Type 2 diabetes mellitus with chronic kidney disease, without long-term current use of insulin, unspecified CKD stage (HCC) documented in this encounter Care Teams Worksite Wellness Practitioner Relationship Specialty Start Date End Date Maximino William MD [address] [place] [address] PCP - General 04/06/23 Maximino William MD [address] [place] [address] PCP - Backup PCP Internal Medicine 09/30/23 Bill Quintero [address] [place] [address] Cardiology 03/23/24 Jesus Manuel Duncan [address] [place] [address] Nephrology 03/23/24 Santhosh Lockhart [address] [place] [address] Urology 03/23/24 Eleuterio Weathers [address] [place] [address] [address], [place] [address] Optometry 10/31/24 Collette Hall [address] [place] [address] Gastroenterology 03/16/25 documented as of this encounter
--- OUTSIDE RECORDS SUMMARY | 2025-08-02 18:24 | XMS_ITS | Encounter Summary ---
Author Organization [facility] Address [address] [place] [address] Care Team Providers Care Decorator Store Name Role Phone Maximino William MD Primary Care Provider [phone] Maximino William MD Unavailable Bill Quintero Unavailable Jesus Manuel Duncan Unavailable Santhosh Lockhart Unavailable Unavailable Jasiel Eleuterio Unavailable Hemfelipejoyce Collette Unavailable Encounter Details Date Type Department Care Team (Late st Contact Info) Description 03/16/2025 Orders Only [facility] [address] [place] [phone] Maximino William MD [address] [place] [address] Social History Tobacco Use Types Packs/Day Years Used Date Smoking Tobacco: Never Passive Smoke Exposure: Never Smokeless Tobacco: Never Comments:Smoking Status:No c urrent tobacco use PHQ-2 Answer Date Recorded Patient Health Questionnaire-2 Score 2 04/29/2024 Social Connections Answer Date Recorded Phone Communication Once a week 10/31/2024 Get together with friends / family Once a week 10/31/2024 Attend spiritism services Never 2024 Club Membership No 10/31/2024 Club Attendance Never 10/31/2024 Marital Status 10/31/2024 Financial Resource Strain Answer Date R ecorded Difficulty paying for basics Not very hard 10/2024 How hard is it for you to pa y for utilities (electricity, gas, water)? Not very hard 10/31/2024 Food Insecurity Answer Date Recorded Worry that food will run out Never true 10/2024 Inability to get food Never true 10/31/2024 Transportation Needs Answer Date Record ed Lacking transport to medical appts No 10/31/2024 Lacking transport to non-medical No 10/31/2024 Housing Stability Answer Date Recorded Unable to Pay for Housing in the Last Year No 10/31/2024 Number of Places Lived in the Last Year 1 10/31/2024 Unstable Housing in the Last Year No 10/31/2024 Do you have housing? Not on file 10/31/2024 Are you worried about losing your housing? Not o n file 10/31/2024 Are you worried about losing your housing? Not o n file 10/31/2024 Adolescent Education and Socialization Answer Date Recorded Getting School Help Needed Not on file 10/31 How often do you get together with friends or re latives? 2 10/31/2024 Do you belong to any clubs o r organizations such as nondenominational groups, unions, athletic groups, or school groups? 2 10/2024 How often do you attend meet ings of the clubs or organizations you belong to? 1 10/31/2024 Sex and Gender Information Value Date Recorded Sex Assigned at Male 03/31/2024 9:17 AM EDT Legal Sex Male 11:04 PM EDT Gender Identity Male 06/03/2023 11:04 PM EDT Sexual Orientation Straight 03/31/2024 9: 17 AM EDT documented as of this encounter Plan of Treatment Upcoming Encounters Date Type Department Care Team (Late st Contact Info) Description 09/19/2025 9:45 AM EST Office Visit [facility] [address] [place] [phone] Maximino William MD [address] [place] [address] 6 months Follow up, dyslipidemia, Hypertension. documented as of this encounter Goals Goal Patient Goal Type Associated Problems Recent Progress Patient-Stated? Author Blood Pressure < 140/90 Blood Pressure 118/70(05/11 9:58 AM EDT) Tamiko Fuentes RN Note: Above is your goal for [...] A1C % < 7 Result Component 5.4(10/26/19 12:00 AM EST) No Maximino William MD Note: Above is your goal for [...] ALBUMIN (MICROALBUMIN), RANDOM URINE, WITH CREATININE Routine 03/16/2025 3:00 PM EDT Type 2 diabetes mellitus with chronic kidney disease, without long-term current use of insulin, unspecified CKD stage (HCC) documented in this encounter Results * ALBUMIN (MICROALBUMIN), RANDOM URINE, WITH CREATININE (03/16/2025 3:00 PM EDT) Albumin (Urine) <12 0 - 23 mg/L [facility] Creatinine (Urine) 74 60 - 200 mg/dL [facility] Microalbumin/Cr eat Ratio (Urine) 4 0 - 30 [facility] 03/16/2025 3:00 PM EDT 03/16/2025 9:54 PM EDT Narrative [facility] - 03/16/2025 10:59 PM EDT Microalbumin <12.0, Alb/Creat Ratio Invalid. Testing performed at [facility], [address] [facility], [place] [address], , Vehicle Dismantler: Pallavi Rodriguez MD CL#[id number] Maximino William MD LABORATORY Final Result [facility] [address] [facility] [place] [address], documented in this encounter Visit Diagnoses Diagnosis Type 2 diabetes mellitus with chronic kidney disease, without long-term current use of insulin, unspecified CKD stage (HCC) documented in this encounter Care Teams Decorator Store Relationship Specialty Start Date End Date Maximino William MD [address] [place] [address] PCP - General 04/06/23 Maximino William MD [address] [place] [address] PCP - Backup PCP Internal Medicine 09/30/23 Bill Quintero [address] [place] [address] Cardiology 03/23/24 Jesus Manuel Duncan [address] [place] [address] Nephrology 03/23/24 Santhosh Lockhart [address] [place] [address] Urology 03/23/24 Eleuterio Weathers [address] [place] [address] [address] [address] Optometry 10/31/24 Collette Hall [address] [address] Gastroenterology 03/16/25 documented as of this encounter
--- OUTSIDE RECORDS SUMMARY | 2025-08-02 18:24 | XMS_ITS | Encounter Summary ---
Author Organization [facility] Address [address] [place] [address] Care Team Providers Care Field Services Analyst Name Role Phone Maximino William MD Primary Care Provider [phone] Encounter Details Date Type Department Care Team (Late st Contact Info) Description 05/09/2025 Scanned Document [facility] [address] [facility] [address] [place] [phone] Collette Hall MD [address] [place] [address] Social History Tobacco Use Types Packs/Day Years [...] Info) Description 08/08/2025 9:15 AM EST Appointment [address] [phone] Collette Hall MD [address] [place] [address] 08/17/2025 10:00 AM EST Procedure visit [facility] [id number] [address] [phone] Nash Reyes MD [address] [address] 09/04/2025 3:30 PM EST Office Visit [facility] Neurosurgery [place] [address] [facility] [address] [place] [phone] Carmen Mcdaniel PADadaC [address] [address] documented as of this encounter Visit Diagnoses Not on filedocumented in this encounter Care Teams Field Services Analyst Relationship Specialty Start Date End Date Maximino William MD [address] [place] [address] PCP - General Internal Medicine 08/04/16 documented as of this encounter
--- OUTSIDE RECORDS SUMMARY | 2025-08-02 18:24 | XMS_ITS | Encounter Summary ---
Author Organization [facility] Address [address] [place] [address] Care Team Providers Care School Cleaner Name Role Phone Maximino William MD Primary Care Provider [phone] Maximino William MD Unavailable Ingrid Bill Unavailable Jesus Manuel Duncan Unavailable Santhosh Lockhart Unavailable Unavailable Eleuterio Weathers Unavailable HemCollette howard Unavailable Reason for Visit * Reason Onset Date Comments Refill Request 02/22/2025 Encounter Details Date Type Department Care Team (Late st Contact Info) Description 02/22/2025 Refill [facility] [address] [place] [phone] Maximino William MD [address] [place] [address] Refill Request Social History Tobacco Use Types Packs/Day Years Used Date Smoking Tobacco: Never Passive Smoke Exposure: Never Smokeless Tobacco: Never Comments:Smoking Status:No c urrent tobacco use PHQ-2 Answer Date Recorded Patient Health Questionnaire-2 Score 2 04/29/2024 Social Connections Answer Date Recorded Phone Communication Once a week 10/31/2024 Get together with friends / family Once a week 10/31/2024 Attend restoration services Never 2024 Club Membership No 10/31/2024 [...] any clubs o r organizations such as adventist groups, unions, athletic groups, or school groups? [...] AM EDT documented as of this encounter Miscellaneous Notes * Telephone Encounter - Misti Olivia LPN - 02/24/2025 10:11 AM EDT Left voicemail to call back. documented in this encounter Plan of Treatment Upcoming Encounters Date Type Department Care Team (Late st Contact Info) Description 09/19/2025 9:45 AM EST Office Visit [facility] [address] [place] [address] Maximino William MD [address] [place] [address] [place] [address] 6 months Follow up, dyslipidemia, Hypertension. documented as of this encounter Goals Goal Patient Goal Type Associated Problems Recent Progress Patient-Stated? Author Blood Pressure < 140/90 Blood Pressure 118/70(05/11 9:58 AM EDT) Tamiko Fuentes, ELIEZER Note: Above is your goal for blood [...] 7 Result Component 5.4(10/26/19 12:00 AM EST) Maximino Gilliam MD Note: [...] is ideal. documented as of this encounter Visit Diagnoses Not on filedocumented in this encounter Care Teams School Cleaner Relationship Specialty Start Date End Date Maximino William MD [address] [facility] [place] [address] PCP - General 04/06/23 Maximino William MD [address] [facility] [place] [address] PCP - Backup PCP Internal Medicine 09/30/23 Bill Quintero [address] [place] [address] Cardiology 03/23/24 Jesus Manuel Duncan [address] [place] [address] Nephrology 03/23/24 Santhosh Lockhart [address] [place] [address] Urology 03/23/24 Eleuterio Weathers [address] [facility] [address] [address] Optometry 10/31/24 Collette Hall [address] [facility] [address] [place] [address] Gastroenterology 03/16/25 documented as of this encounter
--- OUTSIDE RECORDS SUMMARY | 2025-08-02 18:24 | XMS_ITS | Encounter Summary ---
Author Organization [facility] Address [address] [place] [address] Care Team Providers Care Tow Bar Driver Name Role Phone Maximino William MD Primary Care Provider [phone] Bill Quintero MD Unavailable Encounter Details Date Type Department Care Team (Late st Contact Info) Description 11/18/2018 Scanned Document [facility] Neurosurgery [place] [address] [facility] 5 [place] [address] [address] Social History Tobacco Use Types Packs/Day Years Used Date Smoking Tobacco: Former Cigarettes 1 10 182 - 1250 Smokeless Tobacco: Never Alcohol Use Standard Drinks/Week Comments Yes 2 (1 standard drink = 0.6 oz pur [...] Info) Description 08/08/2025 9:15 AM EST Appointment [address] [phone] Collette Hall MD [address] [place] [address] 08/17/2025 10:00 AM EST Procedure visit [facility] [id number] 65 [facility] [address] [place] [address] Nash Reyes MD [address] [address] 09/04/2025 3:30 PM EST Office Visit [facility] Neurosurgery [place] 35 [facility] [address] [place] [phone] Carmen Mcdaniel PA-C [address] [phone] documented as of this encounter Visit Diagnoses Not on filedocumented in this encounter Care Teams Tow Bar Driver Relationship Specialty Start Date End Date Maximino William MD [address] [place] [address] PCP - General Internal Medicine 08/04/16 Bill Quintero MD [address] [place] [phone] Homicide Investigator Cardiovascular Disease 07/27/18 documented as of this encounter
--- OUTSIDE RECORDS SUMMARY | 2025-08-02 18:24 | XMS_ITS | Encounter Summary ---
Author Organization [facility] Address [address] [place] [address] Care Team Providers Care Aviation Maintenance Technician Name Role Phone Maximino William MD Primary Care Provider [phone] Bill Quintero MD Unavailable Encounter Details Date Type Department Care Team (Late st Contact Info) Description 01/17/2019 Scanned Document [facility] [place] [address] [facility] [address] [place] [address] Walter Garcia MD 35 [facility] 5 [place] [address] Social History Tobacco Use Types Packs/Day Years Used Date Smoking Tobacco: Former Cigarettes 1 10 171 - 0538 Smokeless Tobacco: Never Alcohol Use Standard Drinks/Week [...] Description 08/08/2025 9:15 AM EST Appointment [facility] [address] [address] Collette Hall MD [address] [place] [address] 08/17/2025 10:00 AM EST Procedure visit [facility]MT [id number] [address] [phone] Nash Reyes MD [address] [address] 09/04/2025 3:30 PM EST Office Visit [facility] Neurosurgery [place] [address] [facility] [address] [place] [phone] Carmen Mcdaniel PA-C [address] [address] documented as of this encounter Visit Diagnoses Not on filedocumented in this encounter Care Teams Aviation Maintenance Technician Relationship Specialty Start Date End Date Maximino William MD [address] [place] [address] PCP - General Internal Medicine 08/04/16 Bill Quintero MD [address] [place] [phone] Glove Operator Cardiovascular Disease 07/27/18 documented as of this encounter
--- OUTSIDE RECORDS SUMMARY | 2025-08-02 18:24 | XMS_ITS | Encounter Summary ---
Author Organization [facility] Address [address] [place] [address] Care Team Providers Care Halal Butcher Name Role Phone Maximino William MD Primary Care Provider [phone] Bill Quintero MD Unavailable Encounter Details Date Type Department Care Team (Late st Contact Info) Description 04/26/2020 Scanned Document [facility] Neurosurgery [place] 35 [facility] [address] [place] [phone] Walter Garcia MD [address] [facility] [place] [address] [place] [address] Social History Tobacco Use Types Packs/Day Years Used Date Smoking Tobacco: Former Cigarettes 1 10 156 - 1976 Smokeless Tobacco: Never Alcohol Use Standard Drinks/Week Comments Yes 2 (1 standard drink = 0.6 oz pur e alcohol) Sex and Gender Information Value Date Recorded Sex Assigned at Male 12/30/2022 12:02 PM EDT Legal Sex Male 4:19 PM EST Gender Identity Male 10/29/2020 2:51 AM EST Sexual Orientation Heterosexual (straight) 10/29 2:51 AM EST COVID-19 Exposure Response Date Recorded In the last month, have you been in contact with someone who was confirmed or suspected to have Coronavirus / COVID-19? No / Unsure 04/23/2020 10:20 AM EDT documented as of this encounter Plan of Treatment Upcoming Encounters Date Type Department Care Team (Late st Contact Info) Description 08/08/2025 9:15 AM EST Appointment [facility] [address] [place] [address] Collette Hall MD [address] [place] [address] 08/17/2025 10:00 AM EST Procedure visit MG PAIN [facility]MT [id number] [address] [facility] [address] [place] [address] Nash Reyes MD [address] [address] 09/04/2025 3:30 PM EST Office Visit [facility] Neurosurgery [place] 35 [facility] [address] [place] [phone] Carmen Mcdaniel PA-C [address] [address] documented as of this encounter Visit Diagnoses Not on filedocumented in this encounter Care Teams Halal Butcher Relationship Specialty Start Date End Date Maximino William MD [address] [place] [address] PCP - General Internal Medicine 08/04/16 Bill Quintero MD [address] [place] [phone] Receptionist Cardiovascular Disease 07/27/18 documented as of this encounter
--- OUTSIDE RECORDS SUMMARY | 2025-08-02 18:24 | XMS_ITS | Encounter Summary ---
Author Organization [facility] Address [address] [facility] [facility] [address] [place] [address] Phone Care Team Providers Care Firewall Engineer Name Role Phone Maximino William MD Primary Care Provider [phone] Encounter Details Date Type Department Care Team (Late st Contact Info) Description 11/17/2014 Scanned Document [facility] 1 [place] [address] Victor M Armando, DO [address] [address] Social History Tobacco Use Types Packs/Day Years [...] on filedocumented in this encounter Care Teams Firewall Engineer Relationship Specialty Start Date End Date Maximino William MD [address] [place] [address] PCP - General Internal Medicine 11/13/14 documented as of this encounter
--- OUTSIDE RECORDS SUMMARY | 2025-08-02 18:24 | XMS_ITS | Encounter Summary ---
Author Organization [facility] Address 100 [place] [address] Care Team Providers Care Cosmetic Sales Consultant Name Role Phone Maximino William MD Primary Care Provider [phone] Bill Quintero MD Unavailable Encounter Details Date Type Department Care Team (Late st Contact Info) Description 11/22/2018 Scanned Document [facility] Neurosurgery [place] 35 [facility] 5 [place] [address] [address] Social History Tobacco Use Types Packs/Day Years Used Date Smoking Tobacco: Former Cigarettes 1 10 529 - 4035 Smokeless Tobacco: Never Alcohol Use Standard Drinks/Week [...] Info) Description 08/08/2025 9:15 AM EST Appointment [address] [address] Collette Hall MD 428 [place] [address] 08/17/2025 10:00 AM EST Procedure visit MG PAIN MGMT [id number] 65 [facility] 435 [place] [address] Nash Reyes MD [address] [address] 09/04/2025 3:30 PM EST Office Visit [facility] Neurosurgery [place] 35 [facility] [address] [place] [phone] Carmen Mcdaniel PA-C [address] [address] documented as of this encounter Visit Diagnoses Not on filedocumented in this encounter Care Teams Cosmetic Sales Consultant Relationship Specialty Start Date End Date Maximino William MD [address] [place] [address] PCP - General Internal Medicine 08/04/16 Bill Quintero MD 201 [place] [phone] Gusset Stitcher Cardiovascular Disease 07/27/18 documented as of this encounter
--- OUTSIDE RECORDS SUMMARY | 2025-08-02 18:24 | XMS_ITS | Encounter Summary ---
Author Organization [facility] Address 100 [place] [address] Care Team Providers Care Bell Tier Name Role Phone Maximino William MD Primary Care Provider [phone] Bill Quintero MD Unavailable Encounter Details Date Type Department Care Team (Late st Contact Info) Description 04/24/2020 Scanned Document [facility] Neurosurgery [place] 35 [facility] [address] [place] [phone] Social History Tobacco Use Types Packs/Day Years Used Date Smoking Tobacco: Former Cigarettes 1 10 374 - 2459 Smokeless Tobacco: Never Alcohol Use Standard Drinks/Week [...] Description 08/08/2025 9:15 AM EST Appointment [facility] [address] [place] [address] Collette Hall MD 428 [place] [address] 08/17/2025 10:00 AM EST Procedure visit MG PAIN MGMT [id number] [address] [phone] Nash Reyes MD 35 [facility] 5 [place] [address] 09/04/2025 3:30 PM EST Office Visit [facility] Neurosurgery [place] 35 [facility] [address] [place] [address] Carmen Mcdaniel, PA-C [address] [address] documented as of this encounter Visit Diagnoses Not on filedocumented in this encounter Care Teams Bell Tier Relationship Specialty Start Date End Date Maximino William MD 384 [place] [address] PCP - General Internal Medicine 08/04/16 Bill Quintero MD [address] [place] [phone] Corporate Strategist Cardiovascular Disease 07/27/18 documented as of this encounter
--- OUTSIDE RECORDS SUMMARY | 2025-08-02 18:24 | XMS_ITS | Encounter Summary ---
Author Organization [facility] Address [address] [place] [address] Care Team Providers Care Health And Wellness Director Name Role Phone Maximino William MD Primary Care Provider [phone] Bill Quintero MD Unavailable Encounter Details Date Type Department Care Team (Late st Contact Info) Description 10/28/2018 Scanned Document [facility] Neurosurgery [address] [place], [place] [phone] Social History Tobacco Use Types Packs/Day Years [...] Description 08/08/2025 9:15 AM EST Appointment [facility] [address] [place] [address] Collette Hall MD [address] [place] [address] 08/17/2025 10:00 AM EST Procedure visit MG PAIN MGMT [id number] 65 [facility] 435 [place] [phone] Nash Reyes MD [address] [address] 09/04/2025 3:30 PM EST Office Visit [facility] Neurosurgery [place] 35 [facility] [address] [place] [address] Carmen Mcdaniel, PA-C [address] [address] documented as of this encounter Visit Diagnoses Not on filedocumented in this encounter Care Teams Health And Wellness Director Relationship Specialty Start Date End Date Maximino William MD [address] [place] [address] PCP - General Internal Medicine 08/04/16 Bill Quintero MD [address] [place] [phone] Bar Porter Cardiovascular Disease 07/27/18 documented as of this encounter
--- OUTSIDE RECORDS SUMMARY | 2025-08-02 18:24 | XMS_ITS | Encounter Summary ---
Author Organization [facility] Address [address] [place] [address] Care Team Providers Care Processing Analyst Name Role Phone Maximino William MD Primary Care Provider Bill Quintero MD Unavailable Encounter Details Date Type Department Care Team (Late st Contact Info) Description 04/11/2020 Scanned Document [facility] Neurosurgery [address] [place] [phone] Social History Tobacco Use Types Packs/Day Years Used Date Smoking Tobacco: Former Cigarettes 1 10 811 1976 Smokeless Tobacco: Never Alcohol Use Standard [...] Description 08/08/2025 9:15 AM EST Appointment [facility] [address] [place] [address] Collette Hall MD [address] [place] [address] 08/17/2025 10:00 AM EST Procedure visit MG PAIN MGMT [id number] 65 [facility] [place] [facility] 435 [place] [phone] Nash Reyes MD [address] [address] 09/04/2025 3:30 PM EST Office Visit [facility] Neurosurgery [place] 35 [facility] [address] [place] [address] Carmen Mcdaniel, PA-C [address] [address] documented as of this encounter Visit Diagnoses Not on filedocumented in this encounter Care Teams Processing Analyst Relationship Specialty Start Date End Date Maximino William MD [address] [place] [address] PCP - General Internal Medicine 08/04/16 Bill Quintero MD [address] [place] [phone] Residential Youth Counselor Cardiovascular Disease 07/27/18 documented as of this encounter
--- OUTSIDE RECORDS SUMMARY | 2025-08-02 18:24 | XMS_ITS | Encounter Summary ---
Author Organization [facility] Address [address] [place] [address] Care Team Providers Care Profile Mill Operator Tape Control Name Role Phone Maximino William MD Primary Care Provider [phone] Bill Quintero MD Unavailable Encounter Details Date Type Department Care Team (Late st Contact Info) Description 05/25/2020 Scanned Document [facility] Neurosurgery [place] 35 [facility] [address] [place] [phone] Social History Tobacco Use Types Packs/Day Years Used Date Smoking Tobacco: Former Cigarettes 1 10 296 - 1976 Smokeless Tobacco: Never Alcohol Use Standard Drinks/Week Comments Yes 2 (1 standard drink = 0.6 oz pur e alcohol) 2x3 a week Sex and Gender Information Value Date [...] have Coronavirus / COVID-19? No / Unsure 05/23/2020 6:41 AM EDT documented as of this encounter Plan of Treatment Upcoming Encounters Date Type Department Care Team (Late st Contact Info) Description 08/08/2025 9:15 AM EST Appointment [facility] 71 [facility] [address] Collette Hall MD 428 [place] [address] 08/17/2025 10:00 AM EST Procedure visit MG PAIN MGMT [id number] [address] [phone] Nash Reyes MD [address] [address] 09/04/2025 3:30 PM EST Office Visit [facility] Neurosurgery [place] 35 [facility] [address] [place] [phone] Carmen Mcdaniel, PA-C [address] [address] documented as of this encounter Visit Diagnoses Not on filedocumented in this encounter Care Teams Profile Mill Operator Tape Control Relationship Specialty Start Date End Date Maximino William MD [address] [place] [address] PCP - General Internal Medicine 08/04/16 Bill Quintero MD [address] [place] [phone] Storekeeper Helper Cardiovascular Disease 07/27/18 documented as of this encounter
--- OUTSIDE RECORDS SUMMARY | 2025-08-02 18:24 | XMS_ITS | Encounter Summary ---
Author Organization [facility] Address [address] [place] [address] Care Team Providers Care Composite Worker Name Role Phone Maximino William MD Primary Care Provider Bill Quintero MD Unavailable Encounter Details Date Type Department Care Team (Late st Contact Info) Description 07/28/2018 Scanned Document [facility] Neurosurgery [place] 35 [facility] [address] [place] [address] Walter Garcia MD 35 [facility] 5 [place] [address] Social History Tobacco Use Types Packs/Day Years [...] Description 08/08/2025 9:15 AM EST Appointment [facility] [address] [address] Collette Hall MD [address] [place] [address] 08/17/2025 10:00 AM EST Procedure visit MG PAIN MGMT [id number] 65 [facility] 435 [place] [address] Nash Reyes MD [address] [address] 09/04/2025 3:30 PM EST Office Visit [facility] Neurosurgery [place] 35 [facility] [address] [place] [phone] Carmen Mcdaniel PADadaC [address] [address] documented as of this encounter Visit Diagnoses Not on filedocumented in this encounter Care Teams Composite Worker Relationship Specialty Start Date End Date Maximino William MD [address] [place] [address] PCP - General Internal Medicine 08/04/16 Bill Quintero MD 201 [place] [phone] Integrity Analyst Cardiovascular Disease 07/27/18 documented as of this encounter
--- OUTSIDE RECORDS SUMMARY | 2025-08-02 18:24 | XMS_ITS | Clinical Summary ---
Author Organization [facility] [address] [facility] [address] Address 1 [facility] [place] [address] Care Team Providers Care Landscape Crew Leader Name Role Phone Maximino William MD Primary Care Provider [phone] Allergies Active Allergy Reactions Criticality Noted Date Comments Trichophyton Mentagrophytes Allergenic Extract Nausea And Vomiting Medium 01/27/2017 Watery eyes and runny nose Watery eyes and runny nose Yeast, Dried Congestion Medium 11/16/2014 Pts gets congested, edema and watery eyes. Pt does have an epi pen. Medications buPROPion (WELLBUTRIN XL) 150 MG 24 hr tablet 6 Active DULoxetine (CYMBALTA) 60 MG capsule 6 Active gabapentin (NEURONTIN) 300 MG capsule 6 Active hydroCHLOROthiazid e (HYDRODIURIL) 25 MG tablet 6 Active lisinopril (PRINIVIL,ZESTRIL) 40 MG tablet 6 Active loratadine (CLARITIN) 10 mg tablet Take 10 mg by mouth.. Active pravastatin (PRAVACHOL) 40 MG tablet 6 Active SUMAtriptan (IMITREX) 6 mg/0.5 mL Crtg 6 Active trospium (SANCTURA XR) 60 mg Cp24 Take 60 mg by mouth.. 7 Active torsemide (DEMADEX) 100 mg tablet 0 Active spironolactone (ALDACTONE) 25 mg tablet 0 Active naloxone (NARCAN) 4 mg/actuation nasal sprayIndications:P ostlaminectomy syndrome, lumbar region,Degeneratio n of lumbar or lumbosacral intervertebral disc,Lumbosacral spondylosis without myelopathy,Cervica l spondylosis without myelopathy,Lumbar spondylosis,Degene ration of cervical intervertebral disc Use 1 spray in 1 nostril for suspected opioid overdose. May repeat in 2 minutes in the other nostril if no or minimal response. 4 each 1 1 Active methadone (DOLOPHINE) 10 mg tabletIndications: Postlaminectomy syndrome, lumbar region,Degeneratio n of lumbar or lumbosacral intervertebral disc,Lumbosacral spondylosis without myelopathy,Cervica l spondylosis without myelopathy,Lumbar spondylosis,Degene ration of cervical intervertebral disc Take 2 tablets (20 mg total) by mouth every 8 (eight) hours. For chronic pain 180 tablet 1 Active methocarbamoL (ROBAXIN) 750 mg tabletIndications: Postlaminectomy syndrome, lumbar region,Degeneratio n of lumbar or lumbosacral intervertebral disc,Lumbosacral spondylosis without myelopathy,Cervica l spondylosis without myelopathy,Lumbar spondylosis,Degene ration of cervical intervertebral disc Take 1 tablet (750 mg total) by mouth 3 (three) times daily as needed. 90 tablet 1 1 Active oxyCODONE (ROXICODONE) 30 mg Immediate Release tabletIndications: Postlaminectomy syndrome, lumbar region,Degeneratio n of lumbar or lumbosacral intervertebral disc,Lumbosacral spondylosis without myelopathy,Cervica l spondylosis without myelopathy,Lumbar spondylosis,Degene ration of cervical intervertebral disc Take 1 tablet (30 mg total) by mouth every 8 (eight) hours as needed (for chronic pain). 90 tablet 1 Active baclofen (LIORESAL) 10 mg tabletIndications: Postlaminectomy syndrome, lumbar region,Degeneratio n of lumbar or lumbosacral intervertebral disc,Lumbosacral spondylosis without myelopathy,Cervica l spondylosis without myelopathy,Lumbar spondylosis,Degene ration of cervical intervertebral disc Take 1 tablet (10 mg total) by mouth 3 (three) times daily as needed. 270 tablet 1 Active Active Problems Problem Noted Date Diagnosed Date Degeneration of cervical intervertebral disc Cervical spondylosis without myelopathy 04/16/20 16 Postlaminectomy syndrome, lumbar region 11/17/19 15 Degeneration of lumbar or lumbosacral interverte bral disc 11/16/2014 Lumbosacral spondylosis without myelopathy 11/16 Neuralgia, neuritis, and radiculitis, unspecifie d 11/16/2014 Hypertension 11/16/2014 Social History Tobacco Use Types Packs/Day Years Used Date Smoking Tobacco: Never Alcohol Use Standard Drinks/Week Comments Not Asked 0 (1 standard drink = 0.6 oz pur e alcohol) PHQ-2 Answer Date Recorded PHQ-2 Score 4 11/08/2019 Sex and Gender Information Value Date Recorded Sex Assigned at Male 07/16/2020 9:06 AM EST Legal Sex Male 11:09 AM EDT Gender Identity Male 07/16/2020 9:06 AM EST Sexual Orientation Not on file Last Filed Vital Signs Vital Sign Reading Time Taken Comments Blood Pressure 118/80 09/27/2019 8:12 AM EST Pulse 90 09/27/2019 8:12 AM EST Temperature - - Respiratory Rate - - Oxygen Saturation - - Inhaled Oxygen Concentration - - Weight 104.3 kg (230 lb) 11/16/2014 1:56 PM EDT Height 170.2 cm (5' 7 ) 11/16/2014 1:56 PM EDT Body Mass Index 36.02 11/16/2014 1:56 PM EDT Plan of Treatment Health Maintenance Due Date Last Done Comments HIV screening 12/13/1967 Hepatitis C screening 1972 Lipid disorder screening 1994 Colon cancer screening, Colonoscopy 12/13/1999 Diabetes screening 12/13/1999 Shingles vaccine (Shingrix) (1 of 2 - Shingrix (RZV) 2 Dose Standard Series) 2004 Influenza vaccine 03/31/2025 05/27/2022, , 05/27/2020, Additional history exists Covid-19 vaccine series ( season) 2025 05/27/2022, 08/20/2021, 11/25/2020, Additional history exists RSV Immunization (1 - 1-dose 75+ series) 2029 Tetanus adult (Td q 10,TDAP once) 12/18/2032 12/18/2022, 01/23/2015 Pneumococcal Vaccine (50+ years) Completed 05/29/2021, 04/19/2020 Meningococcal B Vaccine Aged Out No l onger eligible based on patient's age to complete this topic Meningococcal Vaccine Aged Out No sophia sinai eligible based on patient's age to complete this topic Insurance [facility] MGD Care Teams Landscape Crew Leader Relationship Specialty Start Date End Date Maximino William MD [address] [place] [phone] PCP - General Internal Medicine 11/13/14
--- OUTSIDE RECORDS SUMMARY | 2025-08-02 18:24 | XMS_ITS | Encounter Summary ---
Author Organization [facility] Address [address] [place] [address] Care Team Providers Care Information Assistant Name Role Phone Maximino William MD Primary Care Provider [phone] Maximino William MD Unavailable [phone] Ingrid Bill Unavailable Jesus Manuel Duncan Unavailable Santhosh Lockhart Unavailable Unavailable Eleuterio Weathers Unavailable HemCollette howard Unavailable Reason for Visit * Reason Onset Date Comments Refill Request 02/13/2025 Encounter Details Date Type Department Care Team (Late st Contact Info) Description 02/13/2025 Refill [facility] 3 [place], [place] [address] Maximino William MD 384 [facility] [place] [address] Refill Request Social History Tobacco Use Types Packs/Day Years Used Date Smoking Tobacco: Never Passive Smoke Exposure: Never Smokeless Tobacco: Never Comments:Smoking Status:No c urrent tobacco use PHQ-2 Answer Date Recorded Patient Health Questionnaire-2 Score 2 04/29/2024 Social Connections Answer Date Recorded Phone Communication Once a week 10/31/2024 Get together with friends / family Once a week 10/31/2024 Attend anglican services Never 2024 Club Membership No 10/31/2024 [...] any clubs o r organizations such as islam groups, unions, athletic groups, or school groups? [...] encounter Miscellaneous Notes * Telephone Encounter - Claudia Bloom RN - 02/23/2025 4:35 PM EDT Spoke with [facility] pharmacist Carmen: Medication shipped 02/22, 3 boxes 6 total syringes, 9 day supply Medication has many refills remaining Carmen cancelled renewal/refill request as they do not need anything from our end Patient updated * Telephone Encounter - Shelby De Leon - 02/13/2025 2:15 PM EDT Fax from pharmacy for: Refill Patient's Preferred Pharmacy: [facility] [address] [facility] [address] [facility] [address] Has the patient contacted the pharmacy for this prescription? yes documented in this encounter Plan of Treatment Upcoming Encounters Date Type Department Care Team (Late st Contact Info) Description 09/19/2025 9:45 AM EST [facility] Visit [facility] Primary Care [address] [place] [phone] Maximino William MD [address] [place] [address] 6 months Follow up, dyslipidemia, Hypertension. documented [...] Result Component 5.4(10/26/19 25 12:00 AM EST) No Maximino William MD [...] on filedocumented in this encounter Care Teams Information Assistant Relationship Specialty Start Date End Date Maximino William MD [address] [facility] [place] [address] PCP - General 04/06/23 Maximino William MD [address] [place] [address] PCP - Backup PCP Internal Medicine 09/30/23 Bill Quintero [address] [place] [address] Cardiology 03/23/24 Jesus Manuel Duncan [address] [place] [address] Nephrology 03/23/24 Santhosh Lockhart [address] [place] [address] Urology 03/23/24 Eleuterio Weathers [address] [place] [address] [address], [place] [address] Optometry 10/31/24 Collette Hall [address] [facility] [address] [place] [address] Gastroenterology 03/16/25 documented as of this encounter
--- OUTSIDE RECORDS SUMMARY | 2025-08-02 18:24 | XMS_ITS | Encounter Summary ---
Author Organization [facility] Address [address] [place] [address] Care Team Providers Care Fisheries Biologist Name Role Phone Maximino William MD Primary Care Provider [phone] Bill Quintero MD Unavailable Encounter Details Date Type Department Care Team (Late st Contact Info) Description 11/19/2018 Scanned Document [facility] Neurosurgery [place] 35 [facility] [address] [place] [address] Ángela Joel PA [address] [place] [address] Social History Tobacco Use Types Packs/Day Years Used Date Smoking Tobacco: Former Cigarettes 1 10 889 - 7805 Smokeless Tobacco: Never Alcohol Use Standard Drinks/Week [...] Info) Description 08/08/2025 9:15 AM EST Appointment [address] [address] Collette Hall MD [address] [place] [address] 08/17/2025 10:00 AM EST Procedure visit MG PAIN MGMT [id number] 65 [facility] 435 [place] [address] Nash Reyes MD [address] [address] 09/04/2025 3:30 PM EST Office Visit [facility] Neurosurgery [place] 35 [facility] [address] [place] [phone] Carmen Mcdaniel PA-C [address] [phone] documented as of this encounter Visit Diagnoses Not on filedocumented in this encounter Care Teams Fisheries Biologist Relationship Specialty Start Date End Date Maximino William MD [address] [place] [address] PCP - General Internal Medicine 08/04/16 Bill Quintero MD [address] [place] [phone] Patient Services Rep Cardiovascular Disease 07/27/18 documented as of this encounter
--- OUTSIDE RECORDS SUMMARY | 2025-08-02 18:24 | XMS_ITS | Clinical Summary ---
Author Organization [facility] Address [address] [place] [address] Care Team Providers Care Physician Practice Administrator Name Role Phone Maximino William MD Primary Care Provider [phone] Maximino William MD Unavailable Bill Quintero Unavailable Jesus Manuel Duncan Unavailable Santhosh Lockhart Unavailable Unavailable Eleuterio Weathers Unavailable Hemacha Ali Unavailable Allergies Active Allergy Reactions Criticality Noted Date Comments Environmental 04/19/2020 Mold 04/19/2020 Reactions: Itching Medications Auvi-Q 0.3 MG/0.3ML injection syringe USE DIRECTED 1 3 0 Active Cyanocobalamin (Vitamin B 12) 100 MCG Lozenge 0 7 Active Vitamin D3 (VITAMIN D-3) 50 MCG (1999) tablet 0 7 Active Multiple Vitamins Tab TAKE 1 TABLET DAILY. 30 0 7 Active Spironolactone (ALDACTONE) 25 MG tablet TAKE 1 TABLET DAILY. 90 0 9 Active Torsemide (DEMADEX) 100 MG tablet TAKE 1 TABLET Twice daily TDD:200mg tablet 0 0 Active Naloxone HCl (Narcan) 4 MG/0.1ML Liquid 0 1 Active Allopurinol (Zyloprim) 100 MG tablet TAKE 1 TABLET BY MOUTH EVERY DAY 30 6 2 Active Pravastatin Sodium (PRAVACHOL) 20 MG tablet TAKE 1 TABLET DAILY. 0 3 Active potassium chloride CR (KLOR-CON M20) 20 MEQ CR tablet TAKE 1 TABLET TWICE DAILY. 0 3 Active Dapagliflozin 10 MG tablet Take 10 mg by mouth. 4 Active buPROPion ER (WELLBUTRIN XL) 150 MG 24 hr tablet TAKE 1 TABLET DAILY 90 tablet 3 5 Active metOLazone (ZAROXOLYN) 2.5 MG tablet Take 2.5 mg by mouth. Active Gabapentin (NEURONTIN) 100 MG capsule Take 100 mg by mouth. 5 Active SUMAtriptan Succinate (IMITRIX) 6 MG/0.5ML injection INJECT 0.5 ML AT ONSET, MAY REPEAT IN 2 HOURS, MAXIMUM OF 2 INJECTIONS PER DAY AND 2 DAYS PER WEEK 3 mL 39 5 Active Chlorhexidine Gluconate (PERIDEX) 0.12 % solution 5 Active Mirtazapine (REMERON) 15 MG tablet TAKE 1 TABLET EVERY NIGHT 90 tablet 3 5 Active Fluorouracil (EFUDEX) 5 % cream 5 Active Trulance 3 MG Tab 5 Active Metoprolol Succinate (TOPROL-XL) 25 MG 24 hr tablet Take one tablet (25 mg total) by mouth 1 (one) time each day. 90 tablet 3 5 Active famotidine (PEPCID) 40 MG tablet Take 40 mg by mouth. 5 Active Nystatin (MYCOSTATIN) 484143 UNIT/ML suspension Take 500,000 Units by mouth. 5 Active traZODone (DESYREL) 50 MG tablet TAKE 1 TABLET DAILY 90 tablet 3 5 Active buPROPion ER (WELLBUTRIN XL) 300 MG 24 hr tablet TAKE 1 TABLET DAILY 90 tablet 3 5 Active FLUoxetine (PROzac) 40 MG capsule TAKE 1 CAPSULE DAILY 30 capsule 11 5 Active Baclofen (LIORESAL) 10 MG tablet Take one tablet (10 mg total) by mouth 2 (two) times a day. 60 tablet 10/2308/21/20 25 Active diazePAM (VALIUM) 5 MG tabletIndicatio ns:Generalized anxiety disorder Take one tablet (5 mg total) by mouth 1 (one) time each day if needed for anxiety. 30 tablet Active Methocarbamol (ROBAXIN) 750 MG tablet Take one tablet (750 mg total) by mouth 3 (three) times a day if needed for muscle spasms. 90 tablet 08/21/20 25 Active Active Problems Problem Noted Date Diagnosed Date Generalized anxiety disorder 06/22/2025 Wheezing 05/11/2025 Assessment & Plan (05/11/2025 12:50 PM EDT): No antibiotics needed for this visit. However, if worsens, call back. History of chest pain 05/11/2025 Assessment & Plan (05/11/2025 12:50 PM EDT): Patient was admitted on March secondary to chest pain. Events of admission noted and reviewed. Nuclear stress test was negative upon discharge. He was also seen by cardiology. He is here today for follow-up visit. So far, doing well. No chest pain or shortness of breath. He still continues to have back pain for which he is being followed by a pain specialist as well. Otherwise, he will continue with current medical management. I will see him back for his scheduled visit. Mild emphysema 07/19/2024 Overview (07/19/2024): CT scan 06/21/2024 Assessment & Plan (03/16/2025 12:26 PM EDT): Noted on previous x-rays. So far, denies any chest pain or shortness of breath. Will continue to monitor. Orders: COMPREHENSIVE METABOLIC PANEL WITH GFR; Future HEMOGLOBIN A1C; Future LIPID PANEL WITH REFLEX TO DIRECT LDL; Future Assessment & Plan (11/22/2024 6:16 PM EDT): On inhalers - no shortness of breath Assessment & Plan (10/31/2024 12:50 PM EST): Being followed by pulmonary. No signs of exacerbations. Stable. 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 Low carbohydrate meals. Denies any polydipsia, polyphagia or polyuria. Try the Mediterranean diet as well. Orders: COMPREHENSIVE METABOLIC PANEL WITH GFR; Future HEMOGLOBIN A1C; Future LIPID PANEL WITH REFLEX TO DIRECT LDL; Future Bloating 04/29/2024 Right wrist pain 04/29/2024 Assessment & Plan (11/22/2024 6:16 PM EDT): As per surgery Orders: CBC INCLUDES DIFFERENTIAL AND PLATELET COUNT; Future COMPREHENSIVE METABOLIC PANEL WITH GFR; Future Hypokalemia 12/23/2022 Hyperuricemia 09/30/2022 Dilated aortic root 09/24/2022 Overview (10/04/2023): Description: seen on Echo with in hospital 08/08/22 Assessment & Plan (11/22/2024 6:16 PM EDT): As per cardiology - no cheat pain or shortness of breath Assessment & Plan (10/31/2024 12:50 PM EST): Being followed by cardiology. Stable. No chest pain or shortness of breath. Orders: COMPREHENSIVE METABOLIC PANEL WITH GFR; Future HEMOGLOBIN A1C; Future LIPID PANEL WITH REFLEX TO DIRECT LDL; Future Stage 3b chronic kidney disease 12/03/2021 Overview (10/04/2023): Impression - [id number]: GFR 38 ; dehydrated / on diuretics; monitor Assessment & Plan (03/16/2025 12:26 PM EDT): So far, renal functions have remained stable. Also being followed by renal. Hydrate adequately. Orders: COMPREHENSIVE METABOLIC PANEL WITH GFR; Future HEMOGLOBIN A1C; Future LIPID PANEL WITH REFLEX TO DIRECT LDL; Future Assessment & Plan (11/22/2024 6:16 PM EDT): Stable - will check blood work. Hydrate well Assessment & Plan (10/31/2024 12:50 PM EST): Being followed by nephrology. Renal function much better. Diuretics have been adjusted. Orders: COMPREHENSIVE METABOLIC PANEL WITH GFR; Future HEMOGLOBIN A1C; Future LIPID PANEL WITH REFLEX TO DIRECT LDL; Future Pulmonary hypertension 12/03/2021 Overview (10/04/2023): Annotation - [id number]: CardioMEMS Impression - 28Vzq0360: monitored by cardiology; Description: noted on the [facility] on 11/11/2020 Assessment & Plan (03/16/2025 12:26 PM EDT): Being followed by cardiology. Surfer, denies any chest pain or shortness of breath. No leg edema noted. Orders: COMPREHENSIVE METABOLIC PANEL WITH GFR; Future HEMOGLOBIN A1C; Future LIPID PANEL WITH REFLEX TO DIRECT LDL; Future Assessment & Plan (10/31/2024 12:50 PM EST): Being followed by cardiology as well as pulmonary. So far, no signs of decompensation. No chest pain or shortness of breath. Orders: COMPREHENSIVE METABOLIC PANEL WITH GFR; Future HEMOGLOBIN A1C; Future LIPID PANEL WITH REFLEX TO DIRECT LDL; Future S/P insertion of intrathecal pump 08/20/2021 Overview (10/04/2023): Description: trial - permanent placement pending outcome Hyperreninism 05/29/2021 Overview (10/04/2023): Severity: Medium Impression - [id number]: r/t L heart failure Impression - 38Fys0009: RT heart failure Assessment & Plan (11/22/2024 6:16 PM EDT): Follows with cardiology - cardiology clearance Orders: CBC INCLUDES DIFFERENTIAL AND PLATELET COUNT; Future COMPREHENSIVE METABOLIC PANEL WITH GFR; Future Class 2 severe obesity due t o excess calories with serious comorbidity and body mass index (BMI) of 37.0 to 37.9 in adult 05/25/2021 Overview (10/04/2023): Transitioned From: Obesity Impression - 89Wqq1249: has mobility issues; weight down a few pounds; recc eating a low carbohydrate diet ; keep as active as he can Impression - 32Ome0681: difficulty losing weight due to poor mobility Assessment & Plan (03/16/2025 12:26 PM EDT): According to him, difficult to lose weight secondary to his constipation. Being followed by GI as well. Orders: COMPREHENSIVE METABOLIC PANEL WITH GFR; Future HEMOGLOBIN A1C; Future LIPID PANEL WITH REFLEX TO DIRECT LDL; Future Assessment & Plan (10/31/2024 12:50 PM EST): Has been snacking at night. He will refocus. Now that his pain is much less, exercise encouraged. For his chronic pain, follow-up with pain management as well. Dysphagia 03/19/2021 History of pericardiotomy 05/02/2020 History of pericarditis 05/02/2020 Cervical spondylitis 09/07/2019 Overview (10/04/2023): Severity: Medium; Transitioned From: Arthritis of facet joint of cervical spine Impression - 66Odk2029: on chronic opioid therapy ; managed by pain management Major depressive disorder in full remission, unspecified whether recurrent 09/07/2019 Overview (10/04/2023): Severity: Medium; Transitioned From: Depression; Depression Impression - [id number]: stable on current meds; followed by psychiatry Assessment & Plan (03/16/2025 12:26 PM EDT): In remission. No harmful thoughts. Orders: COMPREHENSIVE METABOLIC PANEL WITH GFR; Future HEMOGLOBIN A1C; Future LIPID PANEL WITH REFLEX TO DIRECT LDL; Future Assessment & Plan (11/22/2024 6:16 PM EDT): Stable Assessment & Plan (10/31/2024 12:50 PM EST): Being followed by psychiatry. Stable so far. Denies any harmful thoughts. Bipolar disorder, unspecified 09/07/2019 Overview (10/04/2023): Severity: Medium Impression - [id number]: stable - managed by psych Impression - 45Vpl3110: stable; followed by psychiatry Diastolic CHF 05/05/2019 Overview (10/04/2023): Impression - 55Qkj0254: no evidence of heart failure on exam today; stable Assessment & Plan (03/16/2025 12:26 PM EDT): Being followed by cardiology. No signs of decompensation. Will continue to monitor. Weight daily. Call if weight increase more than 3 to 5 pounds in 3 to 4 days. Orders: COMPREHENSIVE METABOLIC PANEL WITH GFR; Future HEMOGLOBIN A1C; Future LIPID PANEL WITH REFLEX TO DIRECT LDL; Future Assessment & Plan (11/22/2024 6:16 PM EDT): Scheduled to have cardiac clearance Orders: CBC INCLUDES DIFFERENTIAL AND PLATELET COUNT; Future COMPREHENSIVE METABOLIC PANEL WITH GFR; Future Assessment & Plan (10/31/2024 12:50 PM EST): On diuretics. No signs of decompensation. Will continue with medication management and follow-up with cardiology. Orders: COMPREHENSIVE METABOLIC PANEL WITH GFR; Future HEMOGLOBIN A1C; Future LIPID PANEL WITH REFLEX TO DIRECT LDL; Future Bilateral edema of lower extremity 03/21/2019 Overview (10/04/2023): Impression - 92Wlc3032: will discuss with cardilogy potential to decrease diuretics ( in chf from pericarditis in the past). Pulmonary nodule 03/21/2019 Overview (10/04/2023): Impression - 32Qpv9413: followed by pulmonology Aneurysm, aorta, thoracic 03/21/2019 Overview (10/04/2023): Impression - 98Qgz1107: stable - monitor Impression - 96Qjb1474: followed by cardiology; stable Assessment & Plan (11/22/2024 6:16 PM EDT): No chest pain or shortness of breath Restless legs syndrome 02/19/2019 Overview (10/04/2023): Onset: 07/19/2010; Description: Sleep Medicine Migration - Source Name: Syndrome, restless legs (333.94); Notes: ASSESSMENT: has symptoms again, and interferes with sleep. Personal history of spine surgery 02/19/2019 Overview (10/04/2023): Onset: 02/25/2011; Description: Sleep Medicine Migration - Source Name: SURGICAL: Spine surgery Obstructive sleep apnea, adult 02/19/2019 Overview (10/04/2023): Onset: 07/19/2010; Transitioned From: Sleep apnea; Upper airway resistance syndrome; Hypersomnia; Obstructive sleep apnea hypopnea, mild; Organic hypersomnia Impression - 30Vhw8153: urged to use bipap consistently Impression - 36Wmd8708: Given severe complex sleep apnea with multiple comorbid conditions feel ASV best option for treatment at this time. LVEF in 2020 was 55- 65%. Because ASV is associated with cardiac in patients with CHF and LVEF < = 45% he should be monitored for this condition per the recommendations of his mechanic marine engine Dr. Quintero. Patient already has an ASV device so he will bring that in so pressures can be set as detailed in plan. Will get him set up with [employer] so he can undergo mask fitting as he struggled with masks in the past. Will f/u 1 month after he has been using his ASV to re-assess or sooner as needed.; Description: 04/09/22 PSG ([facility]): Combined AHI = 40.3; Supine = 40.3; REM = 36.6; NREM = 32.6; Obstructive AHI = 30; Central apnea index = 7.3; Medicare = 25.5; Avi O2 = 83%; Mean saturation = 91%. Oxygen was below 90% for 21.2 minutes (4.46% total sleep time). Quiet to moderate snoring noted. Short sleep latency of 1.7 minutes (228 lbs; BMI: 37.9) Assessment & Plan (11/22/2024 6:16 PM EDT): Could not tolerate CPAP Primary hypertension 02/19/2019 Overview (10/04/2023): Onset: 02/25/2011; Transitioned From: Benign essential hypertension Impression - 02Phl4077: controlled on current meds; Description: Sleep Medicine Migration - Source Name: MEDICAL: Hypertension Assessment & Plan (03/16/2025 12:26 PM EDT): Hypertension-blood pressure doing well. He will continue with current management plan. Diet and excise encouraged. Try the DASH diet. Check blood pressure at least 2 times a week and call if more than 140/90 or less than 110/60. Orders: COMPREHENSIVE METABOLIC PANEL WITH GFR; Future HEMOGLOBIN A1C; Future LIPID PANEL WITH REFLEX TO DIRECT LDL; Future Assessment & Plan (11/22/2024 6:16 PM EDT): Blood pressure within reasonable range. no contraindication for contemplated surgery Orders: CBC INCLUDES DIFFERENTIAL AND PLATELET COUNT; Future COMPREHENSIVE METABOLIC PANEL WITH GFR; Future Assessment & Plan (10/31/2024 12:50 PM EST): Hypertension-blood pressure doing well. He will continue with current management plan. Diet and excise encouraged. Try the DASH diet. Check blood pressure at least 2 times a week and call if more than 140/90 or less than 110/60. Orders: COMPREHENSIVE METABOLIC PANEL WITH GFR; Future HEMOGLOBIN A1C; Future LIPID PANEL WITH REFLEX TO DIRECT LDL; Future Foraminal stenosis of cervical region 11/09/2018 Overview (10/04/2023): Impression - 26Nsm7632: 1. Surgery scheduled. Cardiac murmur 01/21/2018 Assessment & Plan (11/22/2024 6:16 PM EDT): Clearance from cardiology. No signs of decompensation Osteoarthritis of left knee 05/11/2017 Opioid dependence, uncomplicated 02/24/2017 Overview (10/04/2023): Severity: Medium Impression - 87Icn1757: chronic use due to back pain; has narcan available / on hand; sees pain management Assessment & Plan (11/22/2024 6:16 PM EDT): Follows with pain MD - on a pain pump Ventral hernia 11/03/2016 Umbilical hernia 05/29/2016 Urinary incontinence 02/08/2016 Overview (10/04/2023): Impression - 46Zpi3773: not well controlled; f/u with urology Erectile dysfunction 07/31/2014 Reflux esophagitis 03/25/2013 Diverticulosis of colon 08/09/2012 Disc degeneration, lumbar 03/26/2012 Overview (10/04/2023): Impression - 71Sqw3954: followed by pain management Renal cyst 01/15/2012 Allergic rhinitis 02/08/2010 Mixed hyperlipidemia 02/08/2010 Overview (10/04/2023): Transitioned From: Hypercholesterolemia Impression - 09Nov2018: CONTROLLED ON MED FOR THE PAST 2 YEARS; 1. Continue current meds as directed.; 2. Should be fine for surgery. Impression - 97Bor7025: continue statin - tolerates well.; controlled Lumbar radiculopathy 10/07/2009 Cervical spondylosis 09/17/2009 Anxiety disorder 09/17/2009 Insomnia 09/17/2009 Overview (10/04/2023): Impression - 53Jha5839: PSG ordered. Discussed good sleep hygiene. Consider CBT. Impression - 58Ozq4033: Re-start ASV Resolved Problems Problem Noted Date Diagnosed Date Resolved Date Left lower quadrant abdominal pain 03/31/2024 04/29/2024 Left upper quadrant abdominal pain 03/31/2024 04/29/2024 Generalized abdominal pain 03/30/2024 0 04/29/2024 COVID-19 virus infection 06/01/202308/2023 Fatigue 01/29/2023 03/31/2024 Hypotension 01/29/2023 07/16/2024 Closed displaced fracture of middle phalanx of finger 12/23/2022 03/31/2024 Closed fracture of 4th metacarpal 12/23/2022 03/31/2024 Pre-operative exam 09/30/2022 Aorta aneurysm 09/24/2022 03/31/2024 Overview (10/04/2023): Description: seen on Echo with in hospital 08/08/22 Encounter for immunization 08/19/2022 0 03/31/2024 Sleep-related hypoxia 05/29/20222023 Overview (10/04/2023): Impression - 12Gey2433: Re-start ASV. Will re-evaluate with titration or pulse oximetry in near future; Description: 04/09/22 PSG ([facility]): Avi O2 = 83%; Mean saturation = 91%. Oxygen was below 90% for 21.2 minutes (4.46% total sleep time) (228 lbs; BMI: 37.9) Daytime hypersomnia 02/05/2022 03/31/20 24 Overview (10/04/2023): Impression - 68Lnm9036: PSG ordered Impression - 17Zvt8017: Re-start ASV Pre-op exam 2021 03/16/2025 Assessment & Plan (11/22/2024 6:16 PM EDT): Orders: CBC INCLUDES DIFFERENTIAL AND PLATELET COUNT; Future COMPREHENSIVE METABOLIC PANEL WITH GFR; Future Constipation due to opioid therapy 06/01/2021 07/16/2024 Overview (10/04/2023): Transitioned From: Constipation Impression - 75Mta2962: taking linzess for constipation; high fiber diet recc. Uncontrolled REM sleep behavior disorder 02/19/2019 07/16/2024 Overview (10/04/2023): Onset: 07/19/2010; Description: Sleep Medicine Migration - Source Name: Disorders, organic, REM sleep behavior; Notes: ASSESSMENT: resolved with CPAP use. 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 Central sleep apnea 10/26/2017 07/16/20 Overview (10/04/2023): Impression - 12Qcq1107: PSG ordered to re-evaluate Impression - 94Slp6167: Re-start ASV; Description: *On opiates*; 09/01/20 EF = 60- 65%; 04/09/22 PSG ([facility]): Combined AHI = 40.3; Supine = 40.3; REM = 36.6; NREM = 32.6; Obstructive AHI = 30; Central apnea index = 7.3; Medicare = 25.5 (228 lbs; BMI: 37.9) Carpal tunnel syndrome 02/18/201307/16 Edema Bilateral 04/15/2012 03/31/2024 Overview (10/04/2023): Laterality: Bilateral; Description: lower extremities History of headache 09/17/2009 06/01/20 21 Encounters Date Type Department Care Team Description 07/21/2025 Results Follow-Up [facility] [address] [place] [address] Provider, Unknown UNSPECIFIED DIAGNOSTIC PROCE 07/17/2025 Results Follow-Up [facility] [address] [place] [address] Bill Quintero UNSPECIFIED DIAGNOSTIC PROCE, UNSPECIFIED DIAGNOSTIC PROCE 07/12/2025 Orders Only NON FC SA NON FC UNK Provider, Unknown 07/12/2025 Orders Only SANDEEP GRACE UNSPEC Bill Quintero 07/05/2025 Refill [facility] [address] [place] [phone] Maximino William MD E-prescribing Refill Request 06/30/2025 Results Follow-Up [facility] [address] [place] [address] Provider, Unknown UNSPECIFIED DIAGNOSTIC PROCE 06/23/2025 Results Follow-Up [facility] [address] [place] [address] Bill Quintero UNSPECIFIED DIAGNOSTIC PROCE 06/22/2025 Orders Only NON FC SA NON FC UNK Provider, Unknown 06/22/2025 Orders Only SANDEEP GRACE UNSPEC Bill Quintero 06/16/2025 Refill [facility] [address] [place] [phone] Maximino William MD Refill Request 06/06/2025 Refill [facility] [address] [place] [phone] Maximino William MD E-prescribing Refill Request 05/26/2025 Refill [facility] [address] [place] [phone] Maximino William MD E-prescribing Refill Request 05/16/2025 Telephone [facility] [address] [place] [phone] Maximino William MD Results 05/12/2025 Refill [facility] [address] [place] [phone] Maximino William MD E-prescribing Refill Request 05/11/2025 10:00 AM EDT Office Visit [facility] [address] [place] [phone] Maximino William MD Wheezing (Primary Dx); History of chest pain 05/09/2025 Minor Procedure/Test SANDEEP GRACE UNSPEC Hemachjoyce, Ali 05/09/2025 Minor Procedure/Test [facility] [address] [place] [facility] [place] [place] [phone] Maximino William MD 05/05/2025 Refill [facility] [address] [facility] [place] [address] Maximino William MD Refill Request from Last 3 Months Immunizations Immunization Administration Dates Next Due COVID-19, mRNA (Moderna Pre Fall 2022) Monovalent, 100 mcg/0.5 ml or 50 mcg/0.25 ml dose 08/20/2021,11/25/2020,10/28/2020 COVID-19, mRNA (Moderna Pre Fall 2022) bivalent, 25 mcg/0.25 ml (6 months - 11 years) or 50 mcg/0.5 ml (12+ years) 05/27/2022 Influenza (SEASONAL) - 06/05/2016,2013,05/31/2013,2011,06/18/2010 Influenza,high-dose, Quadrivalent 05/27/2022, Influenza,injectable,quad,Prsrv Fr 06/10/2019 Influenza,seasonal,trivalent ,preserva tive (FLUZONE MDV) 05/27/2020,06/02/2017,06/08/2014 PCV-13 04/19/2020 PPV23 (Pneumovax) 05/29/2021 Td (adult), adsorbed 11/08/2004 Tdap 12/18/2022,01/23/2015 influenza,seasonal,trivalent ,PF (Fluzone, Fluarix, Flulaval) 06/16/2018 Family History Medical History Relation Name Comments Other Father Adopted : [place], Father, Family History Other Mother Adopted : [place], Father, Family History Other Other Adopted : [place], Father, Family History Relation Name Status Comments Father Mother Other Social History Tobacco Use Types Packs/Day Years Used Date Smoking Tobacco: Never Passive Smoke Exposure: Never Smokeless Tobacco: Never Comments:Smoking Status:No c urrent tobacco use PHQ-2 Answer Date Recorded PHQ-2 Score 2 04/10/2025 PHQ-9 Answer Date Recorded PHQ-9 Score Incomplete 04/10/2025 Social Connections Answer Date Recorded Phone Communication Once a week 10/31/2024 Get together with friends / family Once a week 10/31/2024 Attend jain services Never 2024 Club Membership No 10/31/2024 [...] any clubs o r organizations such as alevism groups, unions, athletic groups, or school groups? 2 10/2024 How often do you attend meet ings of the clubs or organizations you belong to? 1 10/31/2024 Sex and Gender Information Value Date Recorded Sex Assigned at Male 03/31/2024 9:17 AM EDT Legal Sex Male 11:04 PM EDT Gender Identity Male 06/03/2023 11:04 PM EDT Sexual Orientation Straight 03/31/2024 9: 17 AM EDT Last Filed Vital Signs Vital Sign Reading Time Taken Comments Blood Pressure 118/70 05/11/2025 9:58 AM EDT Pulse 64 05/11/2025 9:58 AM EDT Temperature 36.5 C (97.7 F) 05/11/2025 9:58 AM EDT Respiratory Rate 18 05/11/2025 9:58 AM EDT Oxygen Saturation 95% 01/29/2023 1:21 PM EDT Inhaled Oxygen Concentration - - Weight 110 kg (242 lb) 05/11/2025 9:58 AM EDT Height 166.4 cm (5' 5.5 ) 05/11/2025 9:58 AM EDT Body Mass Index 39.66 05/11/2025 9:58 AM EDT Plan of Treatment Upcoming Encounters Date Type Department Care Team (Late st Contact Info) Description 09/19/2025 9:45 AM EST Office Visit [facility] [address] [place] [phone] Maximino William MD [address] [place] [address] [phone] 6 months Follow up, dyslipidemia, Hypertension. Health Maintenance Due Date Last Done Comments RSV (1 - Risk 50-74 years 1-dose series) 2004 Zoster (Shingrix) (1 of 2) 2004 HA1C 04/25/2025 10/26/2024, 04/02, 2021, Additional history exists COVID-19 Vaccine ( season) 2025 05/27/2022, 08/20/2021, 11/25/2020, Additional history exists Influenza (#1) 2025 05/27/2022, 05/02, 05/27/2020, Additional history exists Colon Cancer Screening 08/28/2025 08/28/2015 DTaP/Tdap/Td (3 - Td or Tdap) 12/18/2032 12/18/2022, 01/23/2015, 11/08/2004 Hepatitis C Screening Completed 08/01/2015 Colonoscopy Discontinued 08/28/2015, 07/31, 08/09/2012, Additional history exists PSA Discontinued 05/03/2020, 04/01, 02/18/2017, Additional history exists Pneumococcal 50+ years Completed 05/29/2021, 2019 LDL Cholesterol Discontinued 09/02/2022, 03/01, 12/31/2021, Additional history exists Physical Discontinued 04/29/2024, 05/02, 04/19/2020, Additional history exists Abdominal Aorta Imaging Discontinued 09/09/19, 09/09/2024, 08/19/2024, Additional history exists Chest Imaging Discontinued 09/09/2024, 08/31, 09/09/2024, Additional history exists Eye/Retina Exam Discontinued 03/14/2025 Tonometry Discontinued 03/14/2025 EKG Discontinued 04/26/2025, 08/31, 08/19/2024, Additional history exists Upper Endoscopy Discontinued 05/09/2025, 04/02, 01/07/2022, Additional history exists HPV Vaccine (No Doses Required) Completed Hep A Aged Out No longer eligi ble based on patient's age to complete this topic Hep B Aged Out No longer eligi ble based on patient's age to complete this topic Hib Aged Out No longer eligi ble based on patient's age to complete this topic Meningococcal ACWY Aged Out No longer eligible based on patient's age to complete this topic Zoster (Zostavax) Discontinued Goals Goal Patient Goal Type Associated Problems Recent Progress Patient-Stated? Author Blood Pressure < 140/90 Blood Pressure 118/70(05/11 9:58 AM EDT) No Tamiko Alegre, RN Note: Above is your goal for [...] fasting blood sugar below 120 is ideal. Procedures Procedure Name Priority Date/Time Associated Diagnosis Comments UNSPECIFIED DIAGNOSTIC PROCE 07/12/2025 UNSPECIFIED DIAGNOSTIC PROCE 07/12/2025 UNSPECIFIED DIAGNOSTIC PROCE 07/12/2025 UNSPECIFIED DIAGNOSTIC PROCE 06/22/2025 UNSPECIFIED DIAGNOSTIC PROCE 06/22/2025 CYTOLOGY/PATHOLOGY/GEN ETICS UNSPECIFIED 05/09/2025 EGD (UPPER GI ENDOSCOPY) 05/09/2025 CARDIAC STRESS TEST 04/26/2025 COMPREHENSIVE EYE EXAM 03/14/2025 HEMOGLOBIN A1C Routine 10/26/2024 CT - THORAX W/O CONTRAST THEN W/CONTRAST AND MORE SECTIONS 09/09/2024 CT ABDOMEN W/O CONTRAST THEN W/CONTRAST AND MORE SECTIONS 04/01/2024 LIPID PANEL, PLASMA Routine 09/02/2022 9 :59 AM EST PSA Routine 05/03/2020 9:07 AM EDT COLONOSCOPY Routine 08/28/2015 2:09 PM EST HEPATITIS C ANTIBODY W/ REFLEX TO RNA, QN, RT PCR Routine 08/01/2015 7:15 AM EST from Last 3 Months or Most Recently Relevant to Health Maintenance Results * UNSPECIFIED DIAGNOSTIC PROCE (07/12/2025) Only the most recent of5 resultswithin the time period is included. us Unknown Provider LABORATORY Final Result * EGD (UPPER GI ENDOSCOPY) (05/09/2025) us Maximino William MD PROCEDURES Final Result * CYTOLOGY/PATHOLOGY/GENETICS UNSPECIFIED (05/09/2025) us Ali Hemacha PATHOLOGY Final Result * CARDIAC STRESS TEST (04/26/2025) us Unknown Provider CARDIOVASCULAR-NO INBASKET RTG Final Result * COMPREHENSIVE EYE EXAM (03/14/2025) us Unknown Provider MINOR PROCEDURE Final Result * HEMOGLOBIN A1C (10/26/2024) Hemoglobin A1C 5.4 GLUCOSE MEAN VALUE 10/26/2024 us Unknown Provider LABORATORY Final Result * CT - THORAX W/O CONTRAST THEN W/CONTRAST AND MORE SECTIONS (09/09/2024) 09/09/2024 Narrative 09/09/2024 Ordered by an unspecified provider. us Unknown Provider CONTRAST STUDY- OTHER Final Res ult * CT ABDOMEN W/O CONTRAST THEN W/CONTRAST AND MORE SECTIONS (04/01/2024) 04/01/2024 Narrative 04/01/2024 Ordered by an unspecified provider. us Unknown Provider CONTRAST STUDY- OTHER Final Res ult * (ABNORMAL) LIPID PANEL, PLASMA (09/02/2022 9:59 AM EST) CHOLESTEROL 218(H) <200 mg/dL [facility] CONVERSIONS Triglycerides 216(H) <150 mg/dL PH[facility] CONVERSIONS Comment: 150-199 BORDERLINE HIGH 200-499 HIGH >= 500 VERY HIGH HDL 50 >=40 mg/dL PHCT CONVERSIONS Comment: The floor cashier of this assay has determined that the result may be falsely depressed if the patient is receiving N-Acetylcysteine (NAC) or Metamizole (Dipyrone). If these drugs are going to be administered, please draw a baseline level before drug administration. LDL 125 0 - 129 PH[facility] CONVERSIONS Comment: PERFORMING LAB: [place] [address] [id number] STATE#: [id number] MARINE STEAM FITTER HELPER: Heber Monet MD 09/02/2022 9:59 AM EST Narrative PHCT CONVERSIONS - 09/02/2022 12:43 PM EST Carbon copy result, original order placed by Samantha Ochoa A request was received to process multiple physician orders on the same specimen(s). DR.SHANNON EGAN has ordered the following test(s): COMP, MAG (STAT) has ordered the following test(s): CBC, COMP, LIPID RFX, TSH Is the Patient Fasting? YES us Php Unknown Prov LABORATORY Final Result PHCT CONVERSIONS * PSA (05/03/2020 9:07 AM EDT) PSA 0.3 0.0 - 4.0 ng/ml PHCT CONVERSIONS Comment: This test was performed using the Elecsys Electrochemiluminescence Immunoassay (ECLIA). Values obtained from different assay methods cannot be used interchangeably. PSA levels,regardless of value, should not be interpreted as absolute evidence of the presence or absence of disease.Please note non-age specific reference range in effect 06 05/03/2020 9:07 AM EDT Narrative PHCT CONVERSIONS - 05/03/2020 6:42 PM EDT Testing Performed at: [facility], [address] [place] [id number], , Track Laminating Machine Tender: Radha Cuellar MD CL#[id number] Barbie Sewell APRN LABORATORY Final Re sult PHCT CONVERSIONS * COLONOSCOPY (08/28/2015 2:09 PM EST) Pathologist [facility] COLONOSCOPY, RESULT Normal PHCT CONVERSIONS 08/28/2015 2:09 PM EST Maximino William MD PROCEDURES Final Result Performing Organization Address [facility] Co de Phone Number PHCT CONVERSIONS * HEPATITIS C ANTIBODY W/ REFLEX TO RNA, QN, RT PCR (08/01/2015 7:15 AM EST) [facility] Hepatitis C virus Ab NON-REACT NURA NON-REACT NURA PHCT CONVERSIONS Hepatitis C virus Ab 0.10 <1.00 PHCT CONVERSIONS Comment:Antibodies to HCV we re not detected. NOTE: This does not entirely exclude the possibility of exposure to HCV since antibody production may lag infection. If there is a high suspicion of HCV infection HCV RNA testing may be of diagnostic value. 08/01/2015 7:15 AM EST Narrative PHCT CONVERSIONS - 08/01/2015 3:59 PM EST Testing Performed at: [facility], [address] [place] [id number], , Track Laminating Machine Tender: Radha uCellar MD CLPOL#[id number] 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 Advance Directives and Living Will 02/13/2004 12:00 AM Healthcare Proxy Care Teams Physician Practice Administrator Relationship Specialty Start Date End Date Maximino William MD [address] [place] [address] PCP - General 04/06/23 Maximino William MD [address] [place] [address] PCP - Backup PCP Internal Medicine 09/30/23 Bill Quintero [address] [place] [address] Cardiology 03/23/24 Jesus Manuel Duncan [address] [place] [address] Nephrology 03/23/24 Santhosh Lockhart [address] [place] [address] Urology 03/23/24 Eleuterio Weathers [address] [place] [address] [address], [place] [address] Optometry 10/31/24 Collette Hall 428 [facility] [address] [place] [address] Gastroenterology 03/16/25
--- OUTSIDE RECORDS SUMMARY | 2025-08-02 18:24 | XMS_ITS | Encounter Summary ---
Author Organization [facility] Address [address] [place] [address] Care Team Providers Care Operations Mgr Name Role Phone Maximino William MD Primary Care Provider [phone] Maximino William MD Unavailable [phone] Bill Quintero Unavailable Jesus Manuel Duncan Unavailable Santhosh Lockhart Unavailable Unavailable Jasiel Eleuterio Unavailable Hemanita Ali Unavailable Reason for Referral * CONSULT AND TREATMENT (Routine) - Auth Not Needed Specialty Diagnoses / Procedures Referred By Emily t Referred To Contact Pain Medicine / Pain Management Diagnoses Lumbar radiculopathy Cervical spondylosis S/P insertion of intrathecal pump Maximino William MD [address] [place] [address] Phone: tel: fax: Nash Reyes MD 35 [facility], [address] [place] [address] Phone: tel: fax: Referral ID Status Reason Start Date Expiration Date Visits Requested Visits Authorized [id number] Auth Not Needed Specialty Services Required 11/04/2024 1 1 Question Answer Reason for referral and relevant patient history/tests: Continued pain. Already on an intrathecal pump. Track Order? No tracking Preference of clinician? First Available Encounter Details Date Type Department Care Team (Late st Contact Info) Description 11/04/2024 Orders Only [facility] [address] [facility] [place] [phone] Maximino William MD [address] [facility], [place] [id number] Social History Tobacco Use Types Packs/Day Years Used Date Smoking Tobacco: Never Passive Smoke Exposure: Never Smokeless Tobacco: Never Comments:Smoking Status:No c urrent tobacco use PHQ-2 Answer Date Recorded Patient Health Questionnaire-2 Score 2 04/29/2024 Social Connections Answer Date Recorded Phone Communication Once a week 10/31/2024 Get together with friends / family Once a week 10/31/2024 Attend congregational services Never 2024 Club Membership No 10/31/2024 [...] any clubs o r organizations such as pentecostal groups, unions, athletic groups, or school groups? [...] Description 09/19/2025 9:45 AM EST Office Visit [facility] Primary Care [address] [place] [phone] Maximino William MD [address] [place] [address] 6 months Follow up, dyslipidemia, Hypertension. Scheduled Referrals Name Type Priority Associated Diagnoses Orde r Schedule CONSULT PAIN MANAGEMENT Referral Routine (within 3 months) Lumbar radiculopathy Cervical spondylosis S/P insertion of intrathecal pump Ordered: 11/04/2024 documented as of this encounter Goals Goal [...] documented as of this encounter Visit Diagnoses Diagnosis Lumbar radiculopathy Thoracic or lumbosacral neuritis or radiculitis, unspecified Cervical spondylosis Cervical spondylosis without myelopathy S/P insertion of intrathecal pump Other postprocedural status documented in this encounter Care Teams Operations Mgr Relationship Specialty Start Date End Date Maximino William MD [address] [place] [address] PCP - General 04/06/23 Maximino William MD [address] [place] [place] [address] PCP - Backup PCP Internal Medicine 09/30/23 Bill Quintero [address] [place] [address] Cardiology 03/23/24 Jesus Manuel Duncan [address] [place] [address] Nephrology 03/23/24 Santhosh Lockhart [address] [place] [address] Urology 03/23/24 Eleuterio Weathers [address] [place] [address] [address] [place] [address] Optometry 10/31/24 Collette Hall [address] [facility] [address] [place] [address] Gastroenterology 03/16/25 documented as of this encounter
--- OUTSIDE RECORDS SUMMARY | 2025-08-02 18:24 | XMS_ITS | Encounter Summary ---
Author Organization [facility] Address [address] [place] [address] Care Team Providers Care Instructor Creeler Name Role Phone Maximino William MD Primary Care Provider [phone] Maximino William MD Unavailable Bill Quintero Unavailable Jesus Manuel Duncan Unavailable Santhosh Lockhart Unavailable Unavailable JasielJacobne Unavailable Hemfelipejoyce Collette Unavailable Encounter Details Date Type Department Care Team (Late st Contact Info) Description 07/19/2024 Abstract [facility] [address] [place] [phone] Maximino William MD [address] [place] [address] [place] [address] Social History Tobacco Use Types Packs/Day Years [...] Description 09/19/2025 9:45 AM EST Office Visit [facility] [address] [facility] [phone] Maximino William MD [address] [place] [address] [place] [address] 6 months Follow up, dyslipidemia, Hypertension. documented [...] on filedocumented in this encounter Care Teams Instructor Creeler Relationship Specialty Start Date End Date Maximino William MD [address] [facility] [place] [address] PCP - General 04/06/23 Maximino William MD [address] [place] [address] PCP - Backup PCP Internal Medicine 09/30/23 Bill Quintero [address] [place] [address] Cardiology 03/23/24 Jesus Manuel Duncan [address] [place] [address] Nephrology 03/23/24 Santhosh Lockhart [address] [place] [address] Urology 03/23/24 Eleuterio Weathers [address] [place] [address] [address] [address] Optometry 10/31/24 Collette Hall [address] [address] Gastroenterology 03/16/25 documented as of this encounter
--- OUTSIDE RECORDS SUMMARY | 2025-08-02 18:24 | XMS_ITS | Encounter Summary ---
Author Organization [facility] Address [address] [place] [address] Care Team Providers Care Stick Roller Name Role Phone Maximino William MD Primary Care Provider [phone] Bill Quintero MD Unavailable Encounter Details Date Type Department Care Team (Late st Contact Info) Description 10/15/[address] [facility] Neurosurgery [place] [address] [place] [address] [address] Social History Tobacco Use Types Packs/Day Years [...] Info) Description 08/08/2025 9:15 AM EST Appointment [address] [phone] Collette Hall MD [address] [place] [address] 08/17/2025 10:00 AM EST Procedure visit MG PAIN MGMT [id number] [address] [phone] Nash Reyes MD [address] [address] 09/04/2025 3:30 PM EST Office Visit [facility] Neurosurgery [place] 35 [facility] [address] [place] [phone] Carmen Mcdaniel PADadaC [address] [address] documented as of this encounter Visit Diagnoses Not on filedocumented in this encounter Care Teams Stick Roller Relationship Specialty Start Date End Date Maximino William MD [address] [place] [address] PCP - General Internal Medicine 08/04/16 Bill Quintero MD [address] [place] [phone] Cosmetic Account Coordinator Cardiovascular Disease 07/27/18 documented as of this encounter
--- OUTSIDE RECORDS SUMMARY | 2025-08-02 18:24 | XMS_ITS | Encounter Summary ---
Author Organization [facility] Address [address] [place] [address] Care Team Providers Care Getter Filler Name Role Phone Maximino William MD Primary Care Provider [phone] Maximino William MD Unavailable Bill Quintero Unavailable Jesus Manuel Duncan Unavailable Santhosh Lockhart Unavailable Unavailable Jasiel Eleuterio Unavailable Hemfelipejoyce Collette Unavailable Encounter Details Date Type Department Care Team (Late st Contact Info) Description 02/14/2025 Orders Only [facility] Primary Care [address] [place] [phone] Maximino William MD [address] [place] [address] Social History Tobacco Use Types Packs/Day Years Used Date Smoking Tobacco: Never Passive Smoke Exposure: Never Smokeless Tobacco: Never Comments:Smoking Status:No c urrent tobacco use PHQ-2 Answer Date Recorded Patient Health Questionnaire-2 Score 2 04/29/2024 Social Connections Answer Date Recorded Phone Communication Once a week 10/31/2024 Get together with friends / family Once a week 10/31/2024 Attend hoahaoism services Never 2024 Club Membership No 10/31/2024 [...] any clubs o r organizations such as anabaptism groups, unions, athletic groups, or school groups? [...] 9:45 AM EST Office Visit [facility] [address] [place] [phone] Maximino William MD [address] [place] [address] 6 months Follow up, dyslipidemia, Hypertension. documented as of this encounter Goals Goal Patient Goal Type Associated Problems Recent Progress Patient-Stated? Author Blood Pressure < 140/90 Blood Pressure 118/70(05/11 9:58 AM EDT) Tamiko Fuentes, RN Note: Above is your goal for [...] on filedocumented in this encounter Care Teams Getter Filler Relationship Specialty Start Date End Date Maximino William MD [address] [place] [address] PCP - General 04/06/23 Maximino William MD [address] [place] [address] [place] [address] PCP - Backup PCP Internal Medicine 09/30/23 Bill Quintero [address] [place] [address] Cardiology 03/23/24 Jesus Manuel Duncan [address] [place] [address] Nephrology 03/23/24 Santhosh Lockhart [address] [place] [address] Urology 03/23/24 Eleuterio Weathers [address] [facility] [address], [place] [address] Optometry 10/31/24 Collette Hall [address] [address] Gastroenterology 03/16/25 documented as of this encounter
--- OUTSIDE RECORDS SUMMARY | 2025-08-02 18:24 | XMS_ITS | Encounter Summary ---
Author Organization [facility] Address [address] [place] [address] Care Team Providers Care Food Services Manager Name Role Phone Maximino William MD Primary Care Provider [phone] Bill Quintero MD Unavailable Encounter Details Date Type Department Care Team (Late st Contact Info) Description 04/20/2020 Scanned Document [facility] Neurosurgery [place] [address] [facility] [address] [place] [phone] Walter Garcia MD 35 [facility] [place] [address] [place] [address] Social History Tobacco Use Types Packs/Day Years Used Date Smoking Tobacco: Former Cigarettes 1 10 187 - 1976 Smokeless Tobacco: Never Alcohol Use [...] Description 08/08/2025 9:15 AM EST Appointment [facility] [address] [place] [address] Collette Hall MD [address] [place] [address] 08/17/2025 10:00 AM EST Procedure visit MG PAIN MGMT [id number] 65 [facility] [address] [place] [address] Nash Reyes MD [address] [address] 09/04/2025 3:30 PM EST Office Visit [facility] Neurosurgery [employer] [address] [facility] [address] [place] [phone] Carmen Mcdaniel PA-C [address] [address] documented as of this encounter Visit Diagnoses Not on filedocumented in this encounter Care Teams Food Services Manager Relationship Specialty Start Date End Date Maximino William MD [address] [place] [address] PCP - General Internal Medicine 08/04/16 Bill Quintero MD 201 [place] [phone] Clay Molder Cardiovascular Disease 07/27/18 documented as of this encounter
--- OUTSIDE RECORDS SUMMARY | 2025-08-02 18:24 | XMS_ITS | Encounter Summary ---
Author Organization [facility] Address [address] [place] [address] Care Team Providers Care Rn Coronary Care Unit Name Role Phone Maximino William MD Primary Care Provider [phone] Bill Quintero MD Unavailable Encounter Details Date Type Department Care Team (Late st Contact Info) Description 11/16/2018 Scanned Document [facility] Neurosurgery [place] [address] [place] [address] [address] Social History Tobacco Use Types Packs/Day Years [...] Info) Description 08/08/2025 9:15 AM EST Appointment [address] [phone] Collette Hall MD [address] [place] [address] 08/17/2025 10:00 AM EST Procedure visit MG PAIN MGMT [id number] [address] [phone] Nash Reyes MD [address] [address] 09/04/2025 3:30 PM EST Office Visit [facility] Neurosurgery [place] 35 [facility] [address] [place] [phone] Carmen Mcdaniel PADadaC [address] [address] documented as of this encounter Visit Diagnoses Not on filedocumented in this encounter Care Teams Rn Coronary Care Unit Relationship Specialty Start Date End Date Maximino William MD [address] [place] [address] PCP - General Internal Medicine 08/04/16 Bill Quintero MD [address] [place] [phone] Wet Wheeler Cardiovascular Disease 07/27/18 documented as of this encounter
--- OUTSIDE RECORDS SUMMARY | 2025-08-02 18:24 | XMS_ITS | Encounter Summary ---
Author Organization [facility] Address [address] [place] [address] Care Team Providers Care Side Piece Coverer Name Role Phone Maximino William MD Primary Care Provider [phone] Maximino William MD Unavailable [phone] Bill Quintero Unavailable Jesus Manuel Duncan Unavailable Santhosh Lockhart Unavailable Unavailable Eleuterio Weathers Unavailable Danojoyce Collette Unavailable Encounter Details Date Type Department Care Team (Late st Contact Info) Description 04/11/2025 Orders Only NON FC SA NON FC UNK Provider, Unknown Social History Tobacco Use Types Packs/Day Years Used Date Smoking Tobacco: Never Passive Smoke Exposure: Never Smokeless Tobacco: Never Comments:Smoking Status:No c urrent tobacco use PHQ-2 Answer Date Recorded PHQ-2 Score 2 04/10/2025 PHQ-9 Answer Date Recorded PHQ-9 Score Incomplete 04/10/2025 Social Connections Answer Date Recorded Phone Communication Once a week 10/31/2024 Get together with friends / family Once a week 10/31/2024 Attend voodoo services Never 2024 Club Membership No 10/31/2024 [...] any clubs o r organizations such as oriental orthodox groups, unions, athletic groups, or school groups? [...] Description 09/19/2025 9:45 AM EST Office Visit [facility] Primary Care [address] [place] [phone] Maximino William MD [address] [place] [address] 6 months Follow up, dyslipidemia, Hypertension. documented [...] on filedocumented in this encounter Care Teams Side Piece Coverer Relationship Specialty Start Date End Date Maximino William MD [address] [place] [address] PCP - General 04/06/23 Maximino William MD [address] [place] [address] PCP - Backup PCP Internal Medicine 09/30/23 Bill Quintero [address] [place] [address] Cardiology 03/23/24 Jesus Manuel Duncan [address] [place] [address] Nephrology 03/23/24 Santhosh Lockhart [address] [place] [address] Urology 03/23/24 Eleuterio Weathers [address] [place] [address] Optometry 10/31/24 Collette Hall [address] [address] Gastroenterology 03/16/25 documented as of this encounter
--- OUTSIDE RECORDS SUMMARY | 2025-08-02 18:24 | XMS_ITS | Encounter Summary ---
Author Organization [facility] Address [address] [place] [address] Care Team Providers Care Filer Metal Patterns Name Role Phone Maximino William MD Primary Care Provider [phone] Maximino William MD Unavailable Bill Quintero Unavailable Jesus Manuel Duncan Unavailable Santhosh Lockhart Unavailable Unavailable JasielJacobne Unavailable Hemfelipejoyce Collette Unavailable Encounter Details Date Type Department Care Team (Late st Contact Info) Description 12/15/2023 Orders Only [facility] [address] [place] [phone] Maximino William MD [address] [place] [address] Social History Tobacco Use Types Packs/Day Years Used Date Smoking Tobacco: Never Assessed Comments:Smoking Status:No c urrent tobacco use Sex and Gender Information Value Date Recorded Sex Assigned at Male 03/31/2024 9:17 AM EDT Legal Sex Male 11:04 PM EDT Gender Identity Male 06/03/2023 11:04 PM EDT Sexual Orientation Straight 03/31/2024 9: 17 AM EDT documented as of this encounter Plan of Treatment Upcoming Encounters Date Type Department Care Team (Late st Contact Info) Description 09/19/2025 9:45 AM EST Office Visit [facility] [address] [place] [address] Maximino William MD [address] [place] [address] [facility] [place] [address] 6 months Follow up, dyslipidemia, Hypertension. documented as of this encounter Goals Goal Patient Goal Type Associated Problems Recent Progress Patient-Stated? Author Blood Pressure < 140/90 Blood Pressure 118/70(2024 9:58 AM EDT) Tamiko Fuentes, ELIEZER Note: [...] includes whole-grain products, fish, poultry, and nuts. documented as of this encounter Visit Diagnoses Not on filedocumented in this encounter Care Teams Filer Metal Patterns Relationship Specialty Start Date End Date Maximino William MD [address] [place], [place] [address]CY[place] [address] PCP - General 04/06/23 Maximino William MD [address] [place] [address] [place] [address] PCP - Backup PCP Internal Medicine 09/30/23 Bill Quintero [address] [place] [address] Cardiology 03/23/24 Jesus Manuel Duncan [address] [place] [address] Nephrology 03/23/24 Santhosh Lockhart [address] [place] [address] Urology 03/23/24 Eleuterio Weathers [address] [place] [address] [address], [place] [address] Optometry 10/31/24 Collette Hall [address] [address] Gastroenterology 03/16/25 documented as of this encounter
--- OUTSIDE RECORDS SUMMARY | 2025-08-02 18:24 | XMS_ITS | Encounter Summary ---
Author Organization [facility] Address [address] [place] [address] Care Team Providers Care Extrusion Press Supervisor Name Role Phone Maximino William MD Primary Care Provider Maximino William MD Unavailable [phone] Bill Quintero Unavailable Jesus Manuel Duncan Unavailable Santhosh Lockhart Unavailable Unavailable Jasiel Eleuterio Unavailable Hemachjoyce Ali Unavailable Encounter Details Date Type Department Care Team (Late st Contact Info) Description 12/23/2009 Orders Only [facility] [address] [place], [place] [address] Maximino William MD [address] [place] [address] Social History Tobacco Use Types Packs/Day Years Used Date Smoking Tobacco: Never Assessed Sex and Gender Information Value Date Recorded Sex Assigned at Male 03/31/2024 9:17 AM EDT Legal Sex Male 11:04 PM EDT Gender Identity Male 06/03/2023 11:04 PM EDT Sexual Orientation Straight 03/31/2024 9: 17 AM EDT documented as of this encounter Procedure Notes * Maximino William - 12/23/2009 6:02 PM EDT Message Please let Marlon know all his blood work is normal. Thanks PT/INR [id number] 03:05PM Antaliia Maximino Testing Performed at: [facility], [address] [place] [address], [place] [address], , Medicine Man: Ari Oliveira MD Test Name Result Flag Reference PT-O 11.7 sec 10.6-12.2 INR-O 1.05 sec 0.87-1.13 Therapeutic Range: Range A) Pre- and peroperative OAT started two weeks before surgery -non hip surgery 1.5-2.5 -hip surgery 2.0-3.0 B) Primary and secondary prevention of venous thrombosis 2.0-3.0 C) Active venous thrombosis, pulmonary embolism, and prevention of recurrent venous thrombosis 2.0-4.0 D) Prevention of arterial thromboembolism including patients with mechanical heart valves. 3.0-4.5 CBC WITH AUTOMATED DIFF AND PLATELET 21Dec2009 03:05PM Edis Williamald TESTING PERFORMED AT: [RN] [facility], [address] [place] [address], [place], [address], PHONE: [phone], ASSOCIATE PROFESSOR OF BIOSTATISTICS: SONYA DAY MD Test Name Result Flag Reference WBC-L 8.5 X10E3/UL 4.0-10.5 RBC-L 4.68 X10E6/UL 4.10-5.60 Hemoglobin-L 15.6 G/DL 12.5-17.0 Hematocrit-L 45.0 % 36.0-50.0 MCV-L 96 FL 80-98 MCH-L 33.3 PG 27.0-34.0 MCHC-L 34.7 G/DL 32.0-36.0 Neutrophils-L 74 % 40-74 Lymphs-L 17 % 14-46 Monocytes-L 8 % 4-13 Eos-L 1 % 0-7 Basos-L 0 % 0-3 Platelets-L 249 X10E3/UL 140-415 Neutrophils (Absolute)-L 6.2 X10E3/UL 1.8-7.8 Lymphs (Absolute)-L 1.5 X10E3/UL 0.7-4.5 Monocytes(Absolute)-L 0.7 X10E3/UL 0.1-1.0 Eos (Absolute)-L 0.1 X10E3/UL 0.0-0.4 Baso (Absolute)-L 0.0 X10E3/UL 0.0-0.2 RDW-L 13.9 % 11.7-15.0 IMMATURE GRANULOCYTES 0 % 0-1 IMMATURE GRANS (ABS) 0.0 X10E3/UL 0.0-0.1 LYME DISEASE IGG AND IGM, WESTERN BLOT [id number] 03:05PM NataliiaMaximino TESTING PERFORMED AT: [RN] [facility], [address], PHONE: [phone], ASSOCIATE PROFESSOR OF BIOSTATISTICS: SONYA DAY MD Test Name Result Flag Reference IgG P18 Ab.-L ABSENT IgG P23 Ab.-L ABSENT IgG P28 Ab.-L ABSENT IgG P30 Ab.-L ABSENT IgG P39 Ab.-L ABSENT IgG P41 Ab.-L PRESENT A IgG P45 Ab.-L ABSENT IgG P58 Ab.-L ABSENT IgG P66 Ab.-L ABSENT IgG P93 Ab.-L ABSENT Lyme IgG WB Interp.-L NEGATIVE POSITIVE: 5 OF THE FOLLOWING BORRELIA-SPECIFIC BANDS: 18,23,28,30,39,41,45,58, 66, AND 93. NEGATIVE: NO BANDS OR BANDING PATTERNS WHICH DO NOT MEET POSITIVE CRITERIA. IgM P23 Ab.-L ABSENT IgM P39 Ab.-L ABSENT IgM P41 Ab.-L ABSENT Lyme IgM WB Interp.-L NEGATIVE NOTE: AN EQUIVOCAL OR POSITIVE EIA RESULT FOLLOWED BY A NEGATIVE WESTERN BLOT RESULT IS CONSIDERED NEGATIVE. AN EQUIVOCAL OR POSITIVE EIA RESULT FOLLOWED BY A POSITIVE WESTERN BLOT IS CONSIDERED POSITIVE BY THE CDC. POSITIVE: 2 OF THE FOLLOWING BANDS: 23,39 OR 41 NEGATIVE: NO BANDS OR BANDING PATTERNS WHICH DO NOT MEET POSITIVE CRITERIA. CRITERIA FOR POSITIVITY ARE THOSE RECOMMENDED BY CDC/ASTPHLD. P23=OSP C, [id number] RHEUMATOID FACTOR [id number] 03:05PM NataliiaMaximino TESTING PERFORMED AT: [RN] [facility], [address], PHONE: [phone], ASSOCIATE PROFESSOR OF BIOSTATISTICS: SONYA DAY MD Test Name Result Flag Reference RA Latex Turbid.-L 5.8 IU/ML 0.0-13.9 ESR [id number] 03:05PM Maximino William TESTING PERFORMED AT: [RN] [facility], [address] [place] [address], [address], PHONE: [phone], ASSOCIATE PROFESSOR OF BIOSTATISTICS: SONYA DAY MD Test Name Result Flag Reference Sedimentation Sunr-Somjsjgcsp-A 1 MM/HR 0-20 ANACHOICE(TM) SCREEN W/REFL TO TITER, IFA 21Dec2009 03:05PM Maximino William This order was split into 2 orders: [id number] (CBC WITH AUTOMATED DIFF AND PLATELET,LYME DISEASE IGG AND IGM, WESTERN BLOT,RHEUMATOID FACTOR,ESR,ANACHOICE(TM) SCREEN W/REFL TO TITER, IFA,COMPREHENSIVE METABOLIC PANEL W/GLOMERULAR FILTRATION RATE, ), [id number] (PT/INR) TESTING PERFORMED AT: [RN] [facility], [address] [place] [address], [address], PHONE: [phone], ASSOCIATE PROFESSOR OF BIOSTATISTICS: SONYA DAY MD Test Name Result Flag Reference Antinuclear Antibodies, IFA-L NEGATIVE NEGATIVE <1:80 BORDERLINE 1:80 POSITIVE >1:80 COMPREHENSIVE METABOLIC PANEL W/GLOMERULAR FILTRATION RATE, 21Dec2009 03:05PM Maximino William TESTING PERFORMED AT: [RN] [facility], [address] [place] [address], [address], PHONE: [phone], ASSOCIATE PROFESSOR OF BIOSTATISTICS: SONYA DAY MD Test Name Result Flag Reference Glucose, Serum-L 92 MG/DL 65-99 BUN-L 16 MG/DL 5-26 Creatinine, Serum-L 1.02 MG/DL 0.76-1.27 Glom Filt Rate, Est-L >59 ML/MIN/1.73 >59 If -L >59 ML/MIN/1.73 >59 NOTE: PERSISTENT REDUCTION FOR 3 MONTHS OR MORE IN AN EGFR <60 ML/MIN/1.73 M2 DEFINES CKD. PATIENTS WITH EGFR VALUES >/=60 ML/MIN/1.73 M2 MAY ALSO HAVE CKD IF EVIDENCE OF PERSISTENT PROTEINURIA IS PRESENT. ADDITIONAL INFORMATION MAY BE FOUND AT [email or web address]. BUN/Creatinine Ratio-L 16 8-27 Sodium, Serum-L 141 MMOL/L 135-145 Potassium, Serum-L 4.6 MMOL/L 3.5-5.2 Chloride, Serum-L 102 MMOL/L 97-108 Carbon Dioxide, Total-L 27 MMOL/L 20-32 Calcium, Serum-L 9.5 MG/DL 8.7-10.2 Protein, Total, Serum-L 6.9 G/DL 6.0-8.5 Albumin, Serum-L 4.7 G/DL 3.5-5.5 Globulin, Total-L 2.2 G/DL 1.5-4.5 A/G Ratio-L 2.1 1.1-2.5 Bilirubin, Total-L 1.2 MG/DL 0.1-1.2 EFFECTIVE DECEMBER 24, 2009, BILIRUBIN, TOTAL, REFERENCE INTERVAL WILL BE CHANGING TO: MG/DL [place], TERM AND NEAR TERM: 24 HOURS OLD: 0.0 - 8.0 48 HOURS OLD: 0.0 - 13.2 72 HOURS OLD: 0.0 - 15.6 96 HOURS TO 1 MONTH OLD: 0.0 - 16.6 CHILDREN 1 MONTH AND OLDER AND ADULTS: 0.0 - 1.2 *PANIC VALUE WILL BE CHANGED SUCH THAT RESULTS* >17.0 MG/DL WILL BE CALLED PANICS. Alkaline Phosphatase, S-L 122 IU/L 25-150 AST (SGOT)-L 23 IU/L 0-40 ALT (SGPT)-L 37 IU/L 0-55 COMPREHENSIVE METABOLIC PANEL [id number] 08:30AM Mxaimino William Testing Performed at: [facility], [address] [place] [address], [place] [address], , Medicine Man: Ari Oliveira MD Test Name Result Flag Reference GLUCOSE-O 94 mg/dL 65-99 Fasting Reference Interval BUN-O 20 mg/dL 6-20 CREATININE-O 1.2 mg/dL 0.5-1.2 eGFR-O 67 60-1000 Units of measure for estimated Glomular Filtration Rate: mL/min/1.73m2. If patient is , multiply reported result by 1.21 eGFR calculation is only valid for adults 18-85 years of age. SODIUM-O 142 mmol/L 133-145 POTASSIUM-O 4.9 mmol/L 3.3-5.1 CHLORIDE-O 104 mmol/L 96-108 CO2-O 31 mmol/L 22-32 ANION GAP-O 7 CALCIUM-O 8.8 mg/dL 8.4-10.2 TOTAL PROTEIN-O 6.3 g/dL L 6.4-8.3 ALBUMIN-O 4.5 g/dl 3.5-5.2 ALKALINE PHOSPHATASE-O 123 U/L 40-130 AST-O 20 U/L 4-40 ALT-O 21 U/L 4-41 TOTAL BILIRUBIN-O 0.5 mg/dL 0.1-1.0 GLOBULIN-O 1.8 g/dl 1.4-4.8 A/G RATIO-O 3 1-3 CALCULATED OSMO-O 276 mOsm/kg 253-285 BUN/CREAT RATIO-O 17 6-25 LIPID PROFILE W/REFL to DIRECT LDL [id number] 08:30AM Maximino William Testing Performed at: [facility], [address] [place] [address], , Medicine Man: Ari Oliveira MD Test Name Result Flag Reference CHOL/HDL RATIO-O 4.3 Lipid Profile Comment: LDL Cholesterol Goals <130 mg/dl optimal for patients with less than 2 risk factors <100 mg/dl optimal for patients with 2 or more risk factors <70 mg/dl optimal for patients at high risk for heart disease CHOLESTEROL-O 141 mg/dL 0-199 TRIGLYCERIDES-O 218 mg/dL H 0-150 HDL-O 33 mg/dL L 40-80 LDL-O 64 mg/dL 0-100 VLDL-O 44 mg/dL H 5-40 PTT [id number] 09:40AM Maximino William Testing Performed at: [facility], [address] [place] [address], , Medicine Man: Ari Oliveira MD Test Name Result Flag Reference PTT-O 27.3 sec 21.0-35.0 New patient normal range in effect 06/12/2008 Verified Results PT/INR [id number] 03:05PM Maximino William Testing Performed at: [facility], [address] [place] [address], , Medicine Man: Ari Oliveira MD Test Name Result Flag Reference PT-O 11.7 sec 10.6-12.2 INR-O 1.05 sec 0.87-1.13 Therapeutic Range: Range A) Pre- and peroperative OAT started two weeks before surgery -non hip surgery 1.5-2.5 -hip surgery 2.0-3.0 B) Primary and secondary prevention of venous thrombosis 2.0-3.0 C) Active venous thrombosis, pulmonary embolism, and prevention of recurrent venous thrombosis 2.0-4.0 D) Prevention of arterial thromboembolism including patients with mechanical heart valves. 3.0-4.5 CBC WITH AUTOMATED DIFF AND PLATELET 21Dec2009 03:05PM Maximino William TESTING PERFORMED AT: [RN] [facility], [address] [place] [address], [address], PHONE: [phone], ASSOCIATE PROFESSOR OF BIOSTATISTICS: SONYA DAY MD Test Name Result Flag Reference WBC-L 8.5 X10E3/UL 4.0-10.5 RBC-L 4.68 X10E6/UL 4.10-5.60 Hemoglobin-L 15.6 G/DL 12.5-17.0 Hematocrit-L 45.0 % 36.0-50.0 MCV-L 96 FL 80-98 MCH-L 33.3 PG 27.0-34.0 MCHC-L 34.7 G/DL 32.0-36.0 Neutrophils-L 74 % 40-74 Lymphs-L 17 % 14-46 Monocytes-L 8 % 4-13 Eos-L 1 % 0-7 Basos-L 0 % 0-3 Platelets-L 249 X10E3/UL 140-415 Neutrophils (Absolute)-L 6.2 X10E3/UL 1.8-7.8 Lymphs (Absolute)-L 1.5 X10E3/UL 0.7-4.5 Monocytes(Absolute)-L 0.7 X10E3/UL 0.1-1.0 Eos (Absolute)-L 0.1 X10E3/UL 0.0-0.4 Baso (Absolute)-L 0.0 X10E3/UL 0.0-0.2 RDW-L 13.9 % 11.7-15.0 IMMATURE GRANULOCYTES 0 % 0-1 IMMATURE GRANS (ABS) 0.0 X10E3/UL 0.0-0.1 LYME DISEASE IGG AND IGM, WESTERN BLOT 21Dec2009 03:05PM Maximino William TESTING PERFORMED AT: [RN] [address], [address], PHONE: [phone], ASSOCIATE PROFESSOR OF BIOSTATISTICS: SONYA DAY MD Test Name Result Flag Reference IgG P18 Ab.-L ABSENT IgG P23 Ab.-L ABSENT IgG P28 Ab.-L ABSENT IgG P30 Ab.-L ABSENT IgG P39 Ab.-L ABSENT IgG P41 Ab.-L PRESENT A IgG P45 Ab.-L ABSENT IgG P58 Ab.-L ABSENT IgG P66 Ab.-L ABSENT IgG P93 Ab.-L ABSENT Lyme IgG WB Interp.-L NEGATIVE POSITIVE: 5 OF THE FOLLOWING BORRELIA-SPECIFIC BANDS: 18,23,28,30,39,41,45,58, 66, AND 93. NEGATIVE: NO BANDS OR BANDING PATTERNS WHICH DO NOT MEET POSITIVE CRITERIA. IgM P23 Ab.-L ABSENT IgM P39 Ab.-L ABSENT IgM P41 Ab.-L ABSENT Lyme IgM WB Interp.-L NEGATIVE NOTE: AN EQUIVOCAL OR POSITIVE EIA RESULT FOLLOWED BY A NEGATIVE WESTERN BLOT RESULT IS CONSIDERED NEGATIVE. AN EQUIVOCAL OR POSITIVE EIA RESULT FOLLOWED BY A POSITIVE WESTERN BLOT IS CONSIDERED POSITIVE BY THE CDC. POSITIVE: 2 OF THE FOLLOWING BANDS: 23,39 OR 41 NEGATIVE: NO BANDS OR BANDING PATTERNS WHICH DO NOT MEET POSITIVE CRITERIA. CRITERIA FOR POSITIVITY ARE THOSE RECOMMENDED BY CDC/ASTPHLD. P23=OSP C, [id number] RHEUMATOID FACTOR [id number] 03:05PM Maximino William TESTING PERFORMED AT: [RN] [address], [address], PHONE: [phone], ASSOCIATE PROFESSOR OF BIOSTATISTICS: SONYA DAY MD Test Name Result Flag Reference RA Latex Turbid.-L 5.8 IU/ML 0.0-13.9 ESR 21Dec2009 03:05PM Maximino William TESTING PERFORMED AT: [RN] [facility], [address], PHONE: [phone], ASSOCIATE PROFESSOR OF BIOSTATISTICS: SONYA DAY MD Test Name Result Flag Reference Sedimentation Zepu-Xxcnfjbkbu-B 1 MM/HR 0-20 ANACHOICE(TM) SCREEN W/REFL TO TITER, IFA 21Dec2009 03:05PM Maximino William This order was split into 2 orders: [id number] (CBC WITH AUTOMATED DIFF AND PLATELET,LYME DISEASE IGG AND IGM, WESTERN BLOT,RHEUMATOID FACTOR,ESR,ANACHOICE(TM) SCREEN W/REFL TO TITER, IFA,COMPREHENSIVE METABOLIC PANEL W/GLOMERULAR FILTRATION RATE, ), [id number] (PT/INR) TESTING PERFORMED AT: [RN] [facility], [address] [place], [address], PHONE: [phone], ASSOCIATE PROFESSOR OF BIOSTATISTICS: SONYA DAY MD Test Name Result Flag Reference Antinuclear Antibodies, IFA-L NEGATIVE NEGATIVE <1:80 BORDERLINE 1:80 POSITIVE >1:80 COMPREHENSIVE METABOLIC PANEL W/GLOMERULAR FILTRATION RATE, 21Dec2009 03:05PM Maximino William TESTING PERFORMED AT: [RN] [facility], [address] [place], [address], PHONE: [phone], ASSOCIATE PROFESSOR OF BIOSTATISTICS: SONYA DAY MD Test Name Result Flag Reference Glucose, Serum-L 92 MG/DL 65-99 BUN-L 16 MG/DL 5-26 Creatinine, Serum-L 1.02 MG/DL 0.76-1.27 Glom Filt Rate, Est-L >59 ML/MIN/1.73 >59 If -L >59 ML/MIN/1.73 >59 NOTE: PERSISTENT REDUCTION FOR 3 MONTHS OR MORE IN AN EGFR <60 ML/MIN/1.73 M2 DEFINES CKD. PATIENTS WITH EGFR VALUES >/=60 ML/MIN/1.73 M2 MAY ALSO HAVE CKD IF EVIDENCE OF PERSISTENT PROTEINURIA IS PRESENT. ADDITIONAL INFORMATION MAY BE FOUND AT [email or web address]. BUN/Creatinine Ratio-L 16 8-27 Sodium, Serum-L 141 MMOL/L 135-145 Potassium, Serum-L 4.6 MMOL/L 3.5-5.2 Chloride, Serum-L 102 MMOL/L 97-108 Carbon Dioxide, Total-L 27 MMOL/L 20-32 Calcium, Serum-L 9.5 MG/DL 8.7-10.2 Protein, Total, Serum-L 6.9 G/DL 6.0-8.5 Albumin, Serum-L 4.7 G/DL 3.5-5.5 Globulin, Total-L 2.2 G/DL 1.5-4.5 A/G Ratio-L 2.1 1.1-2.5 Bilirubin, Total-L 1.2 MG/DL 0.1-1.2 EFFECTIVE DECEMBER 24, 2009, BILIRUBIN, TOTAL, REFERENCE INTERVAL WILL BE CHANGING TO: MG/DL [place], TERM AND NEAR TERM: 24 HOURS OLD: 0.0 - 8.0 48 HOURS OLD: 0.0 - 13.2 72 HOURS OLD: 0.0 - 15.6 96 HOURS TO 1 MONTH OLD: 0.0 - 16.6 CHILDREN 1 MONTH AND OLDER AND ADULTS: 0.0 - 1.2 *PANIC VALUE WILL BE CHANGED SUCH THAT RESULTS* >17.0 MG/DL WILL BE CALLED PANICS. Alkaline Phosphatase, S-L 122 IU/L 25-150 AST (SGOT)-L 23 IU/L 0-40 ALT (SGPT)-L 37 IU/L 0-55 Signatures Maximino William M.D.; Dec 23 2009 6:03PM (Author) Dec 24 2009 1:28PM Nataliya Her: Jodi w/patient documented in this encounter Plan of Treatment Upcoming Encounters Date Type Department Care Team (Late st Contact Info) Description 09/19/2025 9:45 AM EST Office Visit [facility] [address] [place] [phone] Maximino William MD [address] [place] [address] 6 months Follow up, dyslipidemia, Hypertension. documented as of this encounter Visit Diagnoses Not on filedocumented in this encounter Care Teams Extrusion Press Supervisor Relationship Specialty Start Date End Date Maximino William MD [address] [place] [address] PCP - General 04/06/23 Maximino William MD [address] [place] [address], [place] [address] PCP - Backup PCP Internal Medicine 09/30/23 Bill Quintero [address] [place] [address] Cardiology 03/23/24 Jesus Manuel Duncan [address] [place] [address] Nephrology 03/23/24 Santhosh Lockhart [address] [place] [address] Urology 03/23/24 Eleuterio Weathers [address] [place] [address] [address] [address] Optometry 10/31/24 Collette Hall [address] [address] Gastroenterology 03/16/25 documented as of this encounter
--- OUTSIDE RECORDS SUMMARY | 2025-08-02 18:24 | XMS_ITS | Encounter Summary ---
Author Organization [facility] Address [address] [place] [address] Care Team Providers Care Airborne And Air Delivery Specialist Name Role Phone Maximino William MD Primary Care Provider [phone] Maximino William MD Unavailable Ingrid Bill Unavailable Jesus Manuel Duncan Unavailable Santhosh Lockhart Unavailable Unavailable Eleuterio Weathers Unavailable HemCollette howard Unavailable Reason for Visit * Reason Comments Abdominal Pain Encounter Details Date Type Department Care Team (Late st Contact Info) Description 03/30/2024 Telephone [facility] [address] [place] [phone] Maximino William MD [address] [place] [address] Abdominal Pain Social History Tobacco Use Types Packs/Day Years [...] Telephone Encounter - Claudia Bloom RN - 03/30/2024 12:39 PM EDT Patient notified. Lab appt scheduled for today. * Telephone Encounter - Maximino William MD - 03/30/2024 12:33 PM EDT Ok. Labs entered. thanks * Telephone Encounter - Misti Olivia LPN - 03/30/2024 9:50 AM EDT Please review below, patient has appointment scheduled for tomorrow. is questioning if lab work has to be done before appt. Please advise. Thanks ! * Telephone Encounter - Keeley Ramirez - 03/30/2024 9:17 AM EDT Chief Complaint: Spouse of Marlon Bender 68 y.o. male calling with complaint of abdominal pain. Onset occurred: 1 month(s) ago Emergent symptoms: Denies severe abdominal pain. Denies black or tarry stools. Denies blood in stool. Allergies: is allergic to environmental and mold. Pertinent hx: Patients notes he has an extensive medical history and is on a lot of medicationincluding a pain pump. Current home treatment: medication- Acetaminophen/Tylenol. Effectiveness of current home tx: not very effective Patients Erica on the line to schedule an appt to have patient evaluated. She is currently with patient. Over the last month he has intermittently been complaining of abdominal pain, nausea, diarrhea, and whole body pain. She states this morning he is complaining of abdominal pain and nausea. The pain he is experiencing is to his lower abdomen. He states his stools are dark brown in color. He is currently rating his pain a 4/10. Denies fever. She states he always has SOB due to CHF. She notes his SOB is currently his baseline, denies worsening SOB. Plan and disposition: Offered an appt for today but patient is only wanting to see his PCP. Soonestavailable appt scheduled for tomorrow at 9:30AM. Advised Erica of ED precautions and she is understanding. She is inquiring if blood work should be done prior. She states he does have a standing order for a basic panel to be done. Please follow up with Erica at [phone]. Thank you- Keeley LA RN * Telephone Encounter - Hector SAM - 03/30/2024 9:09 AM EDT Patient/parent called to schedule appointment for: Stomach bothering, diarhea, x 1 month Shortness of breath ( normal thing for him? , feet/body, exhausted Call was transferred to the RN line for triage and next steps. Caller: Best callback number if disconnected: [phone] documented in this encounter Plan of Treatment Upcoming Encounters Date Type Department Care Team (Late st Contact Info) Description 09/19/2025 9:45 AM EST Office Visit [facility] [address] [place] [phone] Maximino William MD [address] [place] [phone] 6 months Follow up, dyslipidemia, Hypertension. documented as of this encounter Goals Goal Patient Goal Type Associated Problems Recent Progress Patient-Stated? Author Blood Pressure < 140/90 Blood Pressure 118/70(05/11 9:58 AM EDT) No Tamiko Alegre, ELIEZER Note: Above is your goal for [...] on filedocumented in this encounter Care Teams Airborne And Air Delivery Specialist Relationship Specialty Start Date End Date Maximino William MD [address] [place] [address] PCP - General 04/06/23 Maximino William MD [address] [place] [address] PCP - Backup PCP Internal Medicine 09/30/23 Bill Quintero [address] [place] [address] Cardiology 03/23/24 Jesus Manuel Duncan [address] [place] [address] Nephrology 03/23/24 Santhosh Lockhart [address] [place] [address] Urology 03/23/24 Eleuterio Weathers [address] [place] [address] [address] [address] Optometry 10/31/24 Collette Hall [address] [facility] [address] [place] [address] Gastroenterology 03/16/25 documented as of this encounter
--- OUTSIDE RECORDS SUMMARY | 2025-08-02 18:24 | XMS_ITS | Encounter Summary ---
Author Organization [facility] Address [address] [place] [address] Care Team Providers Care Insecticide Maker Name Role Phone Maximino William MD Primary Care Provider [phone] Bill Quintero MD Unavailable Encounter Details Date Type Department Care Team (Late st Contact Info) Description 02/16/2020 Scanned Document [facility] Neurosurgery [facility] [address] [facility] [address] [place] [phone] Social History Tobacco Use Types Packs/Day Years Used Date Smoking Tobacco: Former Cigarettes 1 10 [phone] - [phone] Smokeless Tobacco: Never Alcohol Use Standard Drinks/Week [...] have Coronavirus / COVID-19? No / Unsure 02/13/2020 8:55 AM EDT documented as of this encounter Plan of Treatment Upcoming Encounters Date Type Department Care Team (Late st Contact Info) Description 08/08/2025 9:15 AM EST Appointment [facility] [address] [place] [address] Collette Hall MD [address] [place] [address] 08/17/2025 10:00 AM EST Procedure visit [facility] [id number] [address] [phone] Nash Reyes MD [address] [facility] [address] [place] [address] 09/04/2025 3:30 PM EST Office Visit [facility] Neurosurgery [facility] [address] [facility] [address] [place] [address] Carmen Mcdaniel, PA-C [address] [address] documented as of this encounter Visit Diagnoses Not on filedocumented in this encounter Care Teams Insecticide Maker Relationship Specialty Start Date End Date Maximino William MD [address] [place] [address] PCP - General Internal Medicine 08/04/16 Bill uQintero MD [address] [place] [phone] [employer] [employer] Cardiovascular Disease 07/27/18 documented as of this encounter
--- OUTSIDE RECORDS SUMMARY | 2025-08-02 18:24 | XMS_ITS | Encounter Summary ---
Author Organization [facility] Address [address] [place] [address] Care Team Providers Care Motor Coach Bus Driver Name Role Phone Maximino William MD Primary Care Provider [phone] Maximino William MD Unavailable [phone] Bill Quintero Unavailable Jesus Manuel Duncan Unavailable Santhosh Lockhart Unavailable Unavailable Jasiel Eleuterio Unavailable HemCollette howard Unavailable Encounter Details Date Type Department Care Team (Late st Contact Info) Description 10/31/2024 Orders Only [facility] Primary Care [address] [place] [phone] Bette Rodriguez MA Social History Tobacco Use Types Packs/Day Years Used Date Smoking Tobacco: Never Passive Smoke Exposure: Never Smokeless Tobacco: Never Comments:Smoking Status:No c urrent tobacco use PHQ-2 Answer Date Recorded Patient Health Questionnaire-2 Score 2 04/29/2024 Social Connections Answer Date Recorded Phone Communication Once a week 10/31/2024 Get together with friends / family Once a week 10/31/2024 Attend methodist services Never 2024 Club Membership No 10/31/2024 [...] any clubs o r organizations such as roman catholic groups, unions, athletic groups, or school groups? [...] as of this encounter Functional Status * This questionnaire was completed via: Answer Date of Assessment Author In-Office Tablet 10/31/2024 11:03 AM EST [facility] [place] * Within the last year, have you been humiliated or emotionally abused in other ways by your partner or ex-partner? Answer Date of Assessment Author No 10/31/2024 11:03 AM EST [facility] [place] * Within the last year, have you been afraid of your partner or ex-partner? Answer Date of Assessment Author No 10/31/2024 11:03 AM EST [facility] [place] * Within the last year, have you been raped or forced to have any kind of sexual activity by your partner or ex-partner? Answer Date of Assessment Author No 10/31/2024 11:03 AM EST [facility] [place] * Within the last year, have you been kicked, hit, slapped, or otherwise physically hurt by your partner or ex-partner? Answer Date of Assessment Author No 10/31/2024 11:03 AM EST [facility] [place] * Do you feel stress - tense, restless, nervous, or anxious, or unable to sleep at night because yourmind is troubled all the time - these days? Answer Date of Assessment Author To some extent 10/31/2024 11:03 AM EST [facility] [place] * On average, how many days per week do you engage in moderate to strenuous exercise (like a brisk walk)? Answer Date of Assessment Author 0 days 10/31/2024 11:03 AM EST [facility] [place] * On average, how many minutes do you engage in exercise at this level? Answer Date of Assessment Author 0 min 10/31/2024 11:03 AM EST [facility] [place] * How hard is it for you to pay for utilities (electricity, gas, water)? Answer Date of Assessment Author Not very hard 10/31/2024 11:03 AM EST [facility] [place] * In the last 12 months, was there a time when you were not able to pay the mortgage or rent on time? Answer Date of Assessment Author No 10/31/2024 11:03 AM EST [facility] [place] * In the last 12 months, how many places have you lived? Answer Date of Assessment Author 1 10/31/2024 11:03 AM EST [facility] [place] * In the last 12 months, was there a time when you did not have a steady place to sleep or slept in [place] (including now)? Answer Date of Assessment Author No 10/31/2024 11:03 AM EST [facility] [place] * How hard is it for you to pay for the very basics like food, housing, medical care, and heating? Answer Date of Assessment Author Not very hard 10/31/2024 11:03 AM EST [facility] [place] * In the past 12 months, has a lack of transportation kept you from medical appointments or from getting medications? Answer Date of Assessment Author No 10/31/2024 11:03 AM EST [facility] [place] * In the past 12 months, has lack of transportation kept you from meetings, work, school, or getting things needed for daily living? Answer Date of Assessment Author No 10/31/2024 11:03 AM EST [facility] [place] * Within the past 12 months, you worried that your food would run out before you got money to buy more. Answer Date of Assessment Author Never true 10/31/2024 11:03 AM EST [facility] [place] * Within the past 12 months, the food you bought just didn't last and you didn't have money to get more. Answer Date of Assessment Author Never true 10/31/2024 11:03 AM EST [facility] [place] * In a typical week, how many times do you talk on the telephone with family, friends, or neighbors, or connect via text or social media? Answer Date of Assessment Author Once a week 10/31/2024 11:03 AM EST [facility] [place] * How often do you get together with friends or relatives? Answer Date of Assessment Author Once a week 10/31/2024 11:03 AM EST [facility] [place] * How often do you attend roman catholic or methodist services? Answer Date of Assessment Author Never 10/31/2024 11:03 AM EST [facility] [place] * Do you belong to any clubs or organizations such as roman catholic groups, unions, athletic groups, or school groups? Answer Date of Assessment Author No 10/31/2024 11:03 AM EST [facility] [place] * How often do you attend meetings of the clubs or organizations you belong to? Answer Date of Assessment Author Never 10/31/2024 11:03 AM EST [facility] [place] * Are you now , , , , never , or living with a partner? Answer Date of Assessment Author 10/31/2024 11:03 AM EST [facility] [place] documented as of this encounter Plan of Treatment Upcoming Encounters Date Type Department Care Team (Late st Contact Info) Description 09/19/2025 9:45 AM EST Office Visit [facility] [address]a [facility] [place] [address] Maximino William MD [address] [place] [address] [place] [address] 6 months Follow up, dyslipidemia, Hypertension. documented [...] unspecified Cervical spondylosis Cervical spondylosis without myelopathy Degeneration of intervertebral disc of lumbar region with discogenic back pain S/P insertion of intrathecal pump Other postprocedural status documented in this encounter Care Teams Motor Coach Bus Driver Relationship Specialty Start Date End Date Maximino William MD [address] [facility] [place] [address] PCP - General 04/06/23 Maximino William MD [address] [facility] [place] [address] PCP - Backup PCP Internal Medicine 09/30/23 Bill Quintero [address] [place] [address] Cardiology 03/23/24 Jesus Mnauel Duncan [address] [place] [address] Nephrology 03/23/24 Santhosh Lockhart [address] [place] [address] Urology 03/23/24 Eleuterio Weathers [address] [place] [address] [address], [place] [address] Optometry 10/31/24 Collette Hall [address] [address] Gastroenterology 03/16/25 documented as of this encounter
--- OUTSIDE RECORDS SUMMARY | 2025-08-02 18:25 | XMS_ITS | Encounter Summary ---
Author Organization [facility] Address [address] [place] [address] Phone Care Team Providers Care Wincher Name Role Phone Maximino William MD Primary Care Provider [phone] Encounter Details Date Type Department Care Team (Late st Contact Info) Description 03/23/2021 Documentation [facility] [address] [place] [address] Omar Styles MD [address] [facility] [address] [place] [phone] Social History Tobacco Use Types Packs/Day Years [...] Diagnoses Not on filedocumented in this encounter Additional Health Concerns Assessment Noted Time PHQ-9 Depression Total Score: 15 020 11:40 AM EDT documented as of this encounter Care Teams Wincher Relationship Specialty Start Date End Date Maximino William MD [address] [place] [address] PCP - General Internal Medicine 11/13/14 documented as of this encounter
--- OUTSIDE RECORDS SUMMARY | 2025-08-02 18:25 | XMS_ITS | Encounter Summary ---
Author Organization [facility] Address [address] [place] [address] Care Team Providers Care Front End Architect Name Role Phone Maximino William MD Primary Care Provider [phone] Bill Quintero MD Unavailable Encounter Details Date Type Department Care Team (Late st Contact Info) Description 10/27/2022 Scanned Document [facility] [address] [place] [phone] Keeley Valle APRN [address] [place] [address] [place] [address] Social History Tobacco Use Types Packs/Day Years Used Date Smoking Tobacco: Former Cigarettes 1.5 10 0 01/11/1967 - 01/11/1977 Smokeless Tobacco: Never Alcohol Use Standard Drinks/Week Comments Yes 7 (1 standard drink = 0.6 oz [...] suspected to have Coronavirus/COVID-19? No / Unsure 10/02/2022 1:23 PM EST documented as of this encounter Plan of Treatment Upcoming Encounters Date Type Department Care Team (Late st Contact Info) Description 08/08/2025 9:15 AM EST Appointment [facility] [address] [place] [address] Collette Hall MD [address] [place] [address] 08/17/2025 10:00 AM EST Procedure visit [facility] [id number] 65 [facility] [address] [place] [phone] Nash Reyes MD [address] [address] 09/04/2025 3:30 PM EST Office Visit [facility] Neurosurgery [place] 35 [facility] [address] [place] [address] Carmen Mcdaniel, PA-C [address] [address] documented as of this encounter Visit Diagnoses Not on filedocumented in this encounter Care Teams Front End Architect Relationship Specialty Start Date End Date Maximino William MD [address] [place] [address] PCP - General Internal Medicine 08/04/16 Bill Quintero MD [address] [place] [phone] Meat Selector Cardiovascular Disease 07/27/18 documented as of this encounter
--- OUTSIDE RECORDS SUMMARY | 2025-08-02 18:25 | XMS_ITS | Encounter Summary ---
Author Organization [facility] Address [address] [place] [address] Care Team Providers Care Dry Wall Nailer Name Role Phone Maximino William MD Primary Care Provider Bill Quintero MD Unavailable Encounter Details Date Type Department Care Team (Late st Contact Info) Description 08/14/2021 Scanned Document [facility] [address] [facility] [address] [place] [address] Provider, MD Scottie [address] [place] [address] Social History Tobacco Use Types Packs/Day Years Used Date Smoking Tobacco: Former Cigarettes 1 10 1976 Smokeless Tobacco: Never Alcohol Use Standard [...] have Coronavirus / COVID-19? No / Unsure 08/14/2021 7:22 AM EST documented as of this encounter Functional Status * Level of Risk per Screen Answer Date of Assessment Author Low Risk 08/14/2021 6:00 PM EST Lynn Merrill RN documented as of this encounter Plan of Treatment Upcoming Encounters Date Type Department Care Team (Late st Contact Info) Description 08/08/2025 9:15 AM EST Appointment [facility] [address] [place] [address] Collette Hall MD [address] [place] [address] 08/17/2025 10:00 AM EST Procedure visit [facility] [id number] [address] [place] [phone] Nash Reyes MD [address] [address] 09/04/2025 3:30 PM EST Office Visit [facility] Neurosurgery [place] 35 [facility] [address] [place] [address] Carmen Mcdaniel, PA-C [address] [address] documented as of this encounter Visit Diagnoses Not on filedocumented in this encounter Care Teams Dry Wall Nailer Relationship Specialty Start Date End Date Maximino William MD [address] [place] [address] PCP - General Internal Medicine 08/04/16 Bill Quintero MD [address] [place] [address] Piano Sounding Board Matcher Cardiovascular Disease 07/27/18 documented as of this encounter
--- OUTSIDE RECORDS SUMMARY | 2025-08-02 18:25 | XMS_ITS | Patient Health Record ---
Author Organization [facility] Address [address] [address] Care Team Providers Care Customer Service Driver Name Role Phone Dr Maximino William Primary Care Provider Babak Pradhan Unavailable [phone] Reason For Referral No Information Medications Medication [...] Problem Status W/U Status Risk Notes Problem Radiology result abnormal ([id number]) Abnormal chest CT (R93.89) Active confirmed Vital [...] Encounter Location Date Provider Diagnosis [facility] [address] [facility] [address] [place] [address] 09/13/2024 Babak Paredes Lung nodules R91.8 ; Closed fracture of multiple ribs of left side with routine healing, subsequent encounter S22.42XD ; Abnormal chest CT R93.89 and Aneurysm of ascending aorta without rupture I71.21 [facility] [address] [facility] [address] [facility] [place] [address] 11/15/2024 Babak Paredes Assessments Encounter Date Diagnosis (ICD Code) Assessment Notes Treatment Notes Treatment Clinical Notes Section Notes 09/13/2024 Lung nodules (ICD-10 - R91.8) Patient is about 46-[id number]-mdfw smoking history but quit 40 years ago. [...] Insured Coverage Start Date Coverage End Date [facility] [address] [place], [place] [id number] Marlon Bender Self - patient is the insured 4 Medical (General) History Hospitalization History Reason Date(Month/Year) Severe lower back pain. 09/09/2024
--- OUTSIDE RECORDS SUMMARY | 2025-08-02 18:25 | XMS_ITS | Encounter Summary ---
Author Organization [facility] Address [address] [place] [address] Care Team Providers Care Drum Worker Name Role Phone Maximino William MD Primary Care Provider Bill Quintero MD Unavailable Encounter Details Date Type Department Care Team (Late st Contact Info) Description 07/11/2021 Scanned Document [facility] [address] [facility] [address] [place] [phone] Collette Hall MD [address] [place] [address] Social History Tobacco Use Types Packs/Day Years Used Date Smoking Tobacco: Former Cigarettes 1 05 31 927 - 1976 Smokeless Tobacco: Never Alcohol Use [...] have Coronavirus / COVID-19? No / Unsure 07/08/2021 11:08 AM EST documented as of this encounter Plan of Treatment Upcoming Encounters Date Type Department Care Team (Late st Contact Info) Description 08/08/2025 9:15 AM EST Appointment [facility] 71 [place] [address] Collette Hall MD [address] [place] [address] 08/17/2025 10:00 AM EST Procedure visit [facility] PAIN [facility] [id number] 65 [facility] [address] [place] [address] Nash Reyes MD [address] [address] 09/04/2025 3:30 PM EST Office Visit [facility] Neurosurgery [place] 35 [facility] [address] [place] [address] Carmen Mcdaniel, PA-C [address] [address] documented as of this encounter Visit Diagnoses Not on filedocumented in this encounter Care Teams Drum Worker Relationship Specialty Start Date End Date Maximino William MD [address] [place] [address] PCP - General Internal Medicine 08/04/16 Bill Quintero MD 201 [facility] [place] [phone] Molder Machine Tender Cardiovascular Disease 07/27/18 documented as of this encounter
--- OUTSIDE RECORDS SUMMARY | 2025-08-02 18:25 | XMS_ITS | Encounter Summary ---
Author Organization [facility] Address [address] [place] [address] Care Team Providers Care Hardboard Press Operator Name Role Phone Maximino William MD Primary Care Provider [phone] Maximino William MD Unavailable Bill Quintero Unavailable Jesus Manuel Duncan Unavailable Santhosh Lockhart Unavailable Unavailable Eleuterio Weathers Unavailable Hemanita Collette Unavailable Encounter Details Date Type Department Care Team (Late st Contact Info) Description 07/21/2025 Results Follow-Up [facility] Physicans [address] [place] [address] Provider, Unknown UNSPECIFIED DIAGNOSTIC PROCE Social History Tobacco Use Types Packs/Day Years Used Date Smoking Tobacco: Never Passive Smoke Exposure: Never Smokeless Tobacco: Never Comments:Smoking Status:No c urrent tobacco use PHQ-2 Answer Date Recorded PHQ-2 Score 2 04/10/2025 PHQ-9 Answer Date Recorded PHQ-9 Score Incomplete 04/10/2025 Social Connections Answer Date Recorded Phone Communication Once a week 10/31/2024 Get together with friends / family Once a week 10/31/2024 Attend moravian services Never 2024 Club Membership No 10/31/2024 [...] any clubs o r organizations such as yazdanism groups, unions, athletic groups, or school groups? [...] Description 09/19/2025 9:45 AM EST Office Visit [facility] Primary Care [facility] [place] [phone] Maximino William MD [address] [place] [address] 6 months Follow up, dyslipidemia, Hypertension. documented [...] on filedocumented in this encounter Care Teams Hardboard Press Operator Relationship Specialty Start Date End Date Maximino William MD [address] [place] [address] PCP - General 04/06/23 Maximino William MD [address] [place] [address] PCP - Backup PCP Internal Medicine 09/30/23 Bill Quintero [address] [place] [address] Cardiology 03/23/24 Jesus Manuel Duncan [address] [place] [address] Nephrology 03/23/24 Santhosh Lochkart [address] [place] [address] Urology 03/23/24 Eleuterio Weathers [address] [place] [address] Optometry 10/31/24 Collette Hall [address] [address] Gastroenterology 03/16/25 documented as of this encounter
--- OUTSIDE RECORDS SUMMARY | 2025-08-02 18:25 | XMS_ITS | Encounter Summary ---
Author Organization [facility] Address [address] [place] [address] Care Team Providers Care Bunch Breaker Name Role Phone Maximino William MD Primary Care Provider [phone] Bill Quintero MD Unavailable Encounter Details Date Type Department Care Team (Late st Contact Info) Description 03/17/2017 Scanned Document [facility] Urologic Surgery [address] [place], [place] [address] Santhosh Lockhart MD Social History Tobacco Use Types Packs/Day Years Used Date Smoking Tobacco: Former Comments:quit 1977 Alcohol Use Standard Drinks/Week Comments [...] Description 08/08/2025 9:15 AM EST Appointment [facility] [address] [address] Collette Hall MD [address] [place] [address] 08/17/2025 10:00 AM EST Procedure visit MG PAIN MGMT [id number] 65 [facility] [address] [place] [phone] Nash Reyes MD [address] [address] 09/04/2025 3:30 PM EST Office Visit [facility] Neurosurgery [place] 35 [facility] [address] [place] [address] Carmen Mcdaniel, PA-C [address] [address] documented as of this encounter Visit Diagnoses Not on filedocumented in this encounter Care Teams Bunch Breaker Relationship Specialty Start Date End Date Maximino William MD [address] [place] [address] PCP - General Internal Medicine 08/04/16 Bill Quintero MD [address] [place] [phone] Staff Scientist Cardiovascular Disease 07/27/18 documented as of this encounter
--- OUTSIDE RECORDS SUMMARY | 2025-08-02 18:25 | XMS_ITS | Clinical Summary ---
Author Organization [facility] Address [address] [place] [address] Care Team Providers Care Magazine Publisher Name Role Phone Unavailable Primary Care Provider [...]
--- OUTSIDE RECORDS SUMMARY | 2025-08-02 18:25 | XMS_ITS | Encounter Summary ---
Author Organization [facility] Address [address] [place] [address] Care Team Providers Care Synoptic Meteorologist Name Role Phone Maximino William MD Primary Care Provider [phone] Bill Quintero MD Unavailable Encounter Details Date Type Department Care Team (Late st Contact Info) Description 07/10/2021 Scanned Document [facility] [address] [facility] [address] [place] [address] Provider, MD Scottie [address] [place] [address] Social History Tobacco Use Types Packs/Day Years Used Date Smoking Tobacco: Former Cigarettes 1 1976 Smokeless Tobacco: Never Alcohol Use Standard [...] Description 08/08/2025 9:15 AM EST Appointment [facility] 71 [place] [address] Collette Hall MD [address] [place] [address] 08/17/2025 10:00 AM EST Procedure visit [facility] PAIN [facility] [id number] [address] [place] [phone] Nash Reyes MD [address] [address] 09/04/2025 3:30 PM EST Office Visit [facility] Neurosurgery [place] 35 [facility] [address] [place] [address] Carmen Mcdaniel, PA-C [address] [address] documented as of this encounter Visit Diagnoses Not on filedocumented in this encounter Care Teams Synoptic Meteorologist Relationship Specialty Start Date End Date Maximino William MD [address] [place] [address] PCP - General Internal Medicine 08/04/16 Bill Quintero MD 201 [place] [phone] Lumber Buyer Cardiovascular Disease 07/27/18 documented as of this encounter
--- OUTSIDE RECORDS SUMMARY | 2025-08-02 18:25 | XMS_ITS | Encounter Summary ---
Author Organization [facility] Address [address] [place] [address] Care Team Providers Care Tassel Making Machine Operator Name Role Phone Maximino William MD Primary Care Provider [phone] Encounter Details Date Type Department Care Team (Late st Contact Info) Description 03/21/2025 Scanned Document [address] [address] Linda [place] MD [address] [place] [address] Social History Tobacco Use Types Packs/Day Years [...] Description 08/08/2025 9:15 AM EST Appointment [facility] [address] [address] Collette Hall MD [address] [place] [address] 08/17/2025 10:00 AM EST Procedure visit MG PAIN MGMT [id number] [address] [phone] Nash Reyes MD [address] [address] 09/04/2025 3:30 PM EST Office Visit [facility] Neurosurgery [place] 35 [facility] [address] [place] [phone] Carmen Mcdaniel PADadaC [address] [address] documented as of this encounter Visit Diagnoses Not on filedocumented in this encounter Care Teams Tassel Making Machine Operator Relationship Specialty Start Date End Date Maximino William MD [facility] [place] [address] PCP - General Internal Medicine 08/04/16 documented as of this encounter
--- OUTSIDE RECORDS SUMMARY | 2025-08-02 18:25 | XMS_ITS | Encounter Summary ---
Author Organization [facility] Address [address] [place] [address] Care Team Providers Care Adolescent Counselor Name Role Phone Maximino William MD Primary Care Provider [phone] Bill Quintero MD Unavailable Encounter Details Date Type Department Care Team (Late st Contact Info) Description 11/24/2017 Scanned Document [facility] Neurosurgery [place] 35 [facility] [address] [place], [place] [phone] Provider, Generic Social History Tobacco Use Types [...] Description 08/08/2025 9:15 AM EST Appointment [facility] [address] [place] [address] Collette Hall MD [address] [place] [phone] 08/17/2025 10:00 AM EST Procedure visit MG PAIN MGMT [id number] [address] [phone] Nash Reyes MD 35 [facility] 5 [place] [address] 09/04/2025 3:30 PM EST Office Visit [facility] Neurosurgery [place] 35 [facility] [address] [place] [address] Carmen Mcdaniel, PA-C [address] [address] documented as of this encounter Visit Diagnoses Not on filedocumented in this encounter Care Teams Adolescent Counselor Relationship Specialty Start Date End Date Maximino William MD [address] [place] [address] PCP - General Internal Medicine 08/04/16 Bill Quintero MD [address] [place] [phone] Hydraulics Teacher Cardiovascular Disease 07/27/18 documented as of this encounter
--- OUTSIDE RECORDS SUMMARY | 2025-08-02 18:25 | XMS_ITS | Encounter Summary ---
Author Organization [facility] Address [address] [place] [address] Care Team Providers Care Timber Sizer Name Role Phone Maximino William MD Primary Care Provider [phone] Encounter Details Date Type Department Care Team (Late Contact Info) Description 11/19/2023 Scanned Document [facility] [address] [phone] Ky Carrera PA [address] [phone] Social History Tobacco Use Types Packs/Day Years [...] Info) Description 08/08/2025 9:15 AM EST Appointment [facility] [address] [address] Collette Hall MD [address] [place] [address] 08/17/2025 10:00 AM EST Procedure visit MG PAIN MGMT [id number] [address] [facility] 435 [place] [address] Nash Reyes MD [address] [address] 09/04/2025 3:30 PM EST Office Visit [facility] Neurosurgery [place] 35 [facility] [address] [place] [phone] Carmen Mcdaniel PADadaC [address] [address] documented as of this encounter Procedures Procedure Name Priority Date/Time Associated Diagnosis Comments MEDICATION REFILL REQUESTS Routine 11/19/2023 documented in this encounter Results * MEDICATION REFILL REQUESTS (11/19/2023) us Ky PAYNE HX AMB PROCEDURES NO RESULTS R OUTING Final Result documented in this encounter Visit Diagnoses Not on filedocumented in this encounter Care Teams Timber Sizer Relationship Specialty Start Date End Date Maximino William MD [facility] [place] [address] PCP - General Internal Medicine 08/04/16 documented as of this encounter
--- OUTSIDE RECORDS SUMMARY | 2025-08-02 18:25 | XMS_ITS | Encounter Summary ---
Author Organization [facility] Address [address] [place] [address] Care Team Providers Care Assistance Coordinator Name Role Phone Maximino William MD Primary Care Provider [phone] Bill Quintero MD Unavailable Encounter Details Date Type Department Care Team (Late st Contact Info) Description 07/17/2017 Scanned Document [facility] Neurosurgery [place] 35 [facility] [address] [place] [address] Walter Garcia MD 35 [facility] 5 [place] [address] Social History Tobacco Use Types Packs/Day Years Used Date Smoking Tobacco: Former Comments:quit 1976 Alcohol Use Standard Drinks/Week Comments [...] Info) Description 08/08/2025 9:15 AM EST Appointment [address] [address] Collette Hall MD [address] [place] [address] 08/17/2025 10:00 AM EST Procedure visit MG PAIN MGMT [id number] 65 [facility] 435 [place] [address] Nash Reyes MD [address] [address] 09/04/2025 3:30 PM EST Office Visit [facility] Neurosurgery [place] 35 [facility] [address] [place] [phone] Carmen Mcdaniel PA-C [address] [address] documented as of this encounter Visit Diagnoses Not on filedocumented in this encounter Care Teams Assistance Coordinator Relationship Specialty Start Date End Date Maximino William MD [address] [place] [address] PCP - General Internal Medicine 08/04/16 Bill Quintero MD [address] [place] [phone] Component Design Engineer Cardiovascular Disease 07/27/18 documented as of this encounter
--- OUTSIDE RECORDS SUMMARY | 2025-08-02 18:25 | XMS_ITS | Encounter Summary ---
Author Organization [facility] Address [address] [place] [address] Care Team Providers Care Event Coordinator Marketing And Sales Name Role Phone Maximino William MD Primary Care Provider [phone] Encounter Details Date Type Department Care Team (Late st Contact Info) Description 10/04/2024 Scanned Document [facility] Neurosurgery [place] 35 [facility] [address] [place] [address] Antonia Nicholas MA 35 [facility] 5 [place] [address] Social History Tobacco Use Types Packs/Day Years [...] Description 08/08/2025 9:15 AM EST Appointment [facility] [address] [address] Collette Hall MD 428 [place] [address] 08/17/2025 10:00 AM EST Procedure visit MG PAIN MGMT [id number] [address] [phone] Nash Reyes MD [address] [address] 09/04/2025 3:30 PM EST Office Visit [facility] Neurosurgery [place] 35 [facility] [address] [place] [address] Carmen Mcdaniel PA-C [address] [address] documented as of this encounter Visit Diagnoses Not on filedocumented in this encounter Care Teams Event Coordinator Marketing And Sales Relationship Specialty Start Date End Date Maximino William MD [address] [place] [address] PCP - General Internal Medicine 08/04/16 documented as of this encounter
--- OUTSIDE RECORDS SUMMARY | 2025-08-02 18:25 | XMS_ITS | Encounter Summary ---
Author Organization [facility] Address [address] [place] [address] Care Team Providers Care Ham Curer Name Role Phone Maximino William MD Primary Care Provider [phone] Bill Quintero MD Unavailable Encounter Details Date Type Department Care Team (Late st Contact Info) Description 09/15/2016 Scanned Document [facility] Urologic Surgery [address] [place] [address] Provider, MD Scottie [address] [place] [address] Social History Tobacco Use Types Packs/Day Years [...] Description 08/08/2025 9:15 AM EST Appointment [facility] [address] [address] Collette Hall MD [address] [place] [address] 08/17/2025 10:00 AM EST Procedure visit MG PAIN MGMT [id number] 65 [facility] 435 [place] [address] Nash Reyes MD 35 [facility] 5 [place] [address] 09/04/2025 3:30 PM EST Office Visit [facility] Neurosurgery [place] 35 [facility] [address] [place] [phone] Carmen Mcdaniel, PA-C [address] [address] documented as of this encounter Visit Diagnoses Not on filedocumented in this encounter Care Teams Ham Curer Relationship Specialty Start Date End Date Maximino William MD 384 [place] [address] PCP - General Internal Medicine 08/04/16 Bill Quintero MD [address] [place] [phone] Broadcast Producer Cardiovascular Disease 07/27/18 documented as of this encounter
--- OUTSIDE RECORDS SUMMARY | 2025-08-02 18:25 | XMS_ITS | Encounter Summary ---
Author Organization [facility] Address [address] [place] [address] Care Team Providers Care Heel Coverer Name Role Phone Maxiimno William MD Primary Care Provider [phone] Encounter Details Date Type Department Care Team (Late st Contact Info) Description 10/26/2024 Scanned Document [facility] Neurosurgery [place] 35 [facility] 5 [place] [address] Joy Hoskins MA 35 [place] [address] Social History Tobacco Use Types Packs/Day Years [...] Description 08/08/2025 9:15 AM EST Appointment [facility] [address] [address] Collette Hall MD [address] [place] [address] 08/17/2025 10:00 AM EST Procedure visit MG PAIN MGMT [id number] [address] [phone] Nash Reyes MD [address] [address] 09/04/2025 3:30 PM EST Office Visit [facility] Neurosurgery [place] 35 [facility] [address] [place] [phone] Carmen Mcdaniel PADadaC [address] [address] documented as of this encounter Visit Diagnoses Not on filedocumented in this encounter Care Teams Heel Coverer Relationship Specialty Start Date End Date Maximino William MD [address] [place] [address] PCP - General Internal Medicine 08/04/16 documented as of this encounter
--- OUTSIDE RECORDS SUMMARY | 2025-08-02 18:25 | XMS_ITS | Encounter Summary ---
Author Organization [facility] Address [address] [place] [address] Care Team Providers Care Medical Laboratory Technical Officer Name Role Phone Maximino William MD Primary Care Provider Bill Quintero MD Unavailable Encounter Details Date Type Department Care Team (Late st Contact Info) Description 09/11/2021 Scanned Document [facility] [address] [facility] [address] [place] [phone] Collette Hall MD [address] [place] [address] Social History Tobacco Use Types Packs/Day Years [...] have Coronavirus / COVID-19? No / Unsure 09/10/2021 2:01 PM EST documented as of this encounter Plan of Treatment Upcoming Encounters Date Type Department Care Team (Late st Contact Info) Description 08/08/2025 9:15 AM EST Appointment [facility] 71 [place] [address] Collette Hall MD [address] [place] [address] 08/17/2025 10:00 AM EST Procedure visit MG PAIN MGMT [id number] [address] [place] [address] 435 [place] [address] Nash Reyes MD [address] [address] 09/04/2025 3:30 PM EST Office Visit [facility] Neurosurgery [place] 35 [facility] [address] [place] [address] Carmen Mcdaniel, PA-C [address] [address] documented as of this encounter Visit Diagnoses Not on filedocumented in this encounter Care Teams Medical Laboratory Technical Officer Relationship Specialty Start Date End Date Maximino William MD 384 [place] [address] PCP - General Internal Medicine 08/04/16 Bill Quintero MD 201 [place] [phone] Induction Heat Treater Cardiovascular Disease 07/27/18 documented as of this encounter
--- OUTSIDE RECORDS SUMMARY | 2025-08-02 18:25 | XMS_ITS | Encounter Summary ---
Author Organization [facility] Address [address] [place] [address] Care Team Providers Care Clinical Nursing Instructor Name Role Phone Maximino William MD Primary Care Provider [phone] Bill Quintero MD Unavailable Encounter Details Date Type Department Care Team (Late st Contact Info) Description 08/21/2016 Scanned Document [facility] Urologic Surgery [address] [place], [place] [address] Provider, Generic Social History Tobacco Use Types [...] Description 08/08/2025 9:15 AM EST Appointment [facility] [address] [address] Collette Hall MD [address] [place] [address] 08/17/2025 10:00 AM EST Procedure visit MG PAIN MGMT [id number] 65 [facility] 435 [place] [address] Nash Reyes MD [address] [address] 09/04/2025 3:30 PM EST Office Visit [facility] Neurosurgery [place] 35 [facility] [address] [place] [address] Carmen Mcdaniel, PA-C [address] [address] documented as of this encounter Visit Diagnoses Not on filedocumented in this encounter Care Teams Clinical Nursing Instructor Relationship Specialty Start Date End Date Maximino William MD 384 [place] [address] PCP - General Internal Medicine 08/04/16 Bill Quintero MD [address] [place] [phone] Oval Or Circular Glass Cutter Cardiovascular Disease 07/27/18 documented as of this encounter
--- OUTSIDE RECORDS SUMMARY | 2025-08-02 18:25 | XMS_ITS | Encounter Summary ---
Author Organization [facility] Address [address] [place] [address] Care Team Providers Care Psychologist Educational Name Role Phone Maximino William MD Primary Care Provider [phone] Encounter Details Date Type Department Care Team (Late Contact Info) Description 10/24/2024 Scanned Document [facility] Neurosurgery [place] 35 [facility] [address] [place] [address] Neurosurgery, Scan Social History Tobacco Use Types Packs/Day Years [...] Description 08/08/2025 9:15 AM EST Appointment [facility] [address] [place] [address] Collette Hall MD [address] [place] [address] 08/17/2025 10:00 AM EST Procedure visit MG PAIN MGMT [id number] [address] [phone] Nash Reyes MD [address] [address] 09/04/2025 3:30 PM EST Office Visit [facility] Neurosurgery [place] 35 [facility] [address] [place] [address] Carmen Mcdaniel, PA-C [address] [address] documented as of this encounter Visit Diagnoses Not on filedocumented in this encounter Care Teams Psychologist Educational Relationship Specialty Start Date End Date Maximino William MD [address] [place] [address] PCP - General Internal Medicine 08/04/16 documented as of this encounter
--- OUTSIDE RECORDS SUMMARY | 2025-08-02 18:25 | XMS_ITS | Encounter Summary ---
Author Organization [facility] Address [address] [place] [address] Care Team Providers Care Golf Ball Marker Name Role Phone Maximino William MD Primary Care Provider [phone] Maximino William MD Unavailable Bill Quintero Unavailable Jesus Manuel Duncan Unavailable Santhosh Lockhart Unavailable Unavailable Eleuterio Weathers Unavailable Hemanita Collette Unavailable Encounter Details Date Type Department Care Team (Latest Contact Info) Description 06/30/2025 Results Follow-Up [facility] Physicians Health Information Managment 3 [place] [address] Provider, Unknown UNSPECIFIED DIAGNOSTIC PROCE Social History [...] / family Once a week 10/31/2024 Attend hinduism services Never 2024 Club Membership No 10/31/2024 [...] as of this encounter Miscellaneous Notes * Result Encounter Note - Erika Michelle - 06/30/2025 10:33 AM EDT Please review document. Thank you. CIT *If this is no longer your pt, please follow the Non PHP Pt Workflow documented in this encounter Plan of Treatment Upcoming Encounters Date Type Department Care Team (Late st Contact Info) Description 09/19/2025 9:45 AM EST Office Visit [address] [place] [phone] Maximino William MD [address] [place] [address] [place] [address] 6 months Follow up, dyslipidemia, Hypertension. documented [...] on filedocumented in this encounter Care Teams Golf Ball Marker Relationship Specialty Start Date End Date Maximino William MD 384 [facility] [place] [address] PCP - General 04/06/23 Maximino William MD 384 [facility] [place] [place] [address] PCP - Backup PCP Internal Medicine 09/30/23 Bill Quintero [address] [place] [address] Cardiology 03/23/24 Jesus Manuel Duncan [address] [place] [address] Nephrology 03/23/24 Santhosh Lockhart [address] [place] [address] Urology 03/23/24 Eleuterio Weathers [address] [place] [address] [address], [place] [address] Optometry 10/31/24 Collette Hall [address] [address] Gastroenterology 03/16/25 documented as of this encounter
--- OUTSIDE RECORDS SUMMARY | 2025-08-02 18:25 | XMS_ITS | Encounter Summary ---
Author Organization [facility] Address [address] [place] [address] Care Team Providers Care Manager Process Name Role Phone Maximino William MD Primary Care Provider [phone] Encounter Details Date Type Department Care Team (Late st Contact Info) Description 03/23/2025 Scanned Document [facility] Neurosurgery [place] 85 [facility] [address] [place] [phone] Linda Medina MD 85 [facility] [address] [place] [address] Social History Tobacco Use Types Packs/Day Years [...] Description 08/08/2025 9:15 AM EST Appointment [facility] [address] [address] Collette Hall MD [address] [place] [address] 08/17/2025 10:00 AM EST Procedure visit MG PAIN MGMT [id number] [address] [address] Nash Reyes MD [address] [address] 09/04/2025 3:30 PM EST Office Visit [facility] Neurosurgery [place] 35 [facility] [address] [place] [address] Carmen Mcdaniel PA-C [address] [address] documented as of this encounter Visit Diagnoses Not on filedocumented in this encounter Care Teams Manager Process Relationship Specialty Start Date End Date Maximino William MD [address] [place] [address] PCP - General Internal Medicine 08/04/16 documented as of this encounter
--- OUTSIDE RECORDS SUMMARY | 2025-08-02 18:25 | XMS_ITS | Encounter Summary ---
Author Organization [facility] Address 5 [place] [address] Care Team Providers Care Heating And Refrigeration Inspector Name Role Phone Maximino William MD Primary Care Provider [phone] Maximino William MD Unavailable VíctoralvaroTunde garneromar Unavailable Jesus Manuel Duncan Unavailable Santhosh Lockhart Unavailable Unavailable Eleuterio Weathers Unavailable Hemfelipejoyce Collette Unavailable Encounter Details Date Type Department Care Team (Late st Contact Info) Description 07/17/2025 Results Follow-Up [facility] 3 [place] [address] Víctoralvaropascual Tundear [address] [place] [address] UNSPECIFIED DIAGNOSTIC PROCE, UNSPECIFIED DIAGNOSTIC PROCE Social History Tobacco Use [...] / family Once a week 10/31/2024 Attend sabianism services Never 2024 Club Membership No 10/31/2024 [...] any clubs o r organizations such as latter-day groups, unions, athletic groups, or school groups? [...] Description 09/19/2025 9:45 AM EST Office Visit [facility] Primary Care [address] [place] [phone] Maximino William MD [address] [place] [address] 6 months Follow up, dyslipidemia, Hypertension. documented as of this encounter Goals Goal Patient Goal Type Associated Problems Recent Progress Patient-Stated? Author Blood Pressure < 140/90 Blood Pressure 118/70(05/11 9:58 AM EDT) Tmaiko Fuentes, ELIEZER Note: Above is your goal [...] on filedocumented in this encounter Care Teams Heating And Refrigeration Inspector Relationship Specialty Start Date End Date Maximino [place] [address] PCP - General 04/06/23 Maximino William MD 384 [place] [address] PCP - Backup PCP Internal Medicine 09/30/23 Víctornell Tundeomar [address] [place] [address] Cardiology 03/23/24 Jesus Manuel Duncan [address] [place] [address] Nephrology 03/23/24 Santhosh Lockhart [address] [place] [address] Urology 03/23/24 Eleuterio Weathers 152 [facility] [address] [address] Optometry 10/31/24 Collette Hall [address] [address] Gastroenterology 03/16/25 documented as of this encounter
--- OUTSIDE RECORDS SUMMARY | 2025-08-02 18:25 | XMS_ITS | Encounter Summary ---
Author Organization [facility] Address [address] [place] [address] Care Team Providers Care Cook Frozen Dessert Name Role Phone Maximino William MD Primary Care Provider Maximino William MD Unavailable Ingrid Bill Unavailable Jesus Manuel Duncan Unavailable Santhosh Lockhart Unavailable Unavailable Eleuterio Weathers Unavailable HemCollette howard Unavailable Reason for Visit * Reason Comments E-prescribing Refill Request Encounter Details Date Type Department Care Team (Late st Contact Info) Description 07/05/2025 Refill [facility] [address] [place] [phone] Maximino William MD [address] [place] [address] E-prescribing Refill Request Social History Tobacco Use Types [...] / family Once a week 10/31/2024 Attend zoroastrianism services Never 2024 Club Membership No 10/31/2024 [...] any clubs o r organizations such as christian groups, unions, athletic groups, or school groups? [...] Description 09/19/2025 9:45 AM EST Office Visit [facility] [address] [place] [address] Maximino William MD [address] [place] [address] 6 months Follow up, dyslipidemia, Hypertension. documented [...] on filedocumented in this encounter Care Teams Cook Frozen Dessert Relationship Specialty Start Date End Date Maximino William MD Yuriy ROYAL Yajaira [place], [place] [address] PCP - General 04/06/23 Maximino William MD 384 [facility] [place] [address] PCP - Backup PCP Internal Medicine 09/30/23 Bill Quintero [address] [place] [address] Cardiology 03/23/24 Jesus Manuel Duncan 281 [place] [address] Nephrology 03/23/24 Santhosh Lockhart 281 [place] [address] Urology 03/23/24 Eleuterio Weathers [address] [place] [address] [address] [address] Optometry 10/31/24 Collette Hall [address] [address] Gastroenterology 03/16/25 documented as of this encounter
--- OUTSIDE RECORDS SUMMARY | 2025-08-02 18:25 | XMS_ITS | Encounter Summary ---
Author Organization [facility] Address [address] [place] [address] Care Team Providers Care Administrative Volunteer Name Role Phone Maximino William MD Primary Care Provider Bill Quintero MD Unavailable Encounter Details Date Type Department Care Team (Late st Contact Info) Description 10/02/2021 Scanned Document [facility] [address] [facility] [address] [place] [phone] Collette Hall MD [address] [place] [address] Social History Tobacco Use Types Packs/Day Years Used Date Smoking Tobacco: Former Cigarettes 1 05 31 254 - 1976 Smokeless Tobacco: Never Alcohol Use [...] PM EST documented as of this encounter Progress Notes * Collette Hall MD - 10/02/2021 9:20 AM EST Fyi - pls ensure pt notified that colonoscopy was negative and repeat due in 5 years given personal/family history. * Collette Hall MD - 10/02/2021 9:20 AM EST Fyi - pls ensure pt is notified of the results below. They will need repeat EGD in 12 weeks. Order is done documented in this encounter Plan of Treatment Upcoming Encounters Date Type Department Care Team (Late st Contact Info) Description 08/08/2025 9:15 AM EST Appointment CTGI [address] [place] [address] Collette Hall MD [address] [place] [address] 08/17/2025 10:00 AM EST Procedure visit MG PAIN MGMT [id number] [address] [place] [phone] Nash Reyes MD [address] [address] 09/04/2025 3:30 PM EST Office Visit [facility] Neurosurgery [place] 35 [facility] [address] [place] [address] Carmen Mcdaniel PADadaC [address] [address] documented as of this encounter Procedures Procedure Name Priority Date/Time Associated Diagnosis Comments PATHOLOGY REPORT 10/02/2021 9:19 AM EST documented in this encounter Results * PATHOLOGY REPORT (10/02/2021 9:19 AM EST) Collette Hall MD PATHOLOGY/CYTOLOGY ORDERABLES Fi nal Result documented in this encounter Visit Diagnoses Not on filedocumented in this encounter Care Teams Administrative Volunteer Relationship Specialty Start Date End Date Maximino William MD [address] [place] [address] PCP - General Internal Medicine 08/04/16 Bill Quintero MD [address] [place] [phone] Nozzle Tender Cardiovascular Disease 07/27/18 documented as of this encounter
--- OUTSIDE RECORDS SUMMARY | 2025-08-02 18:25 | XMS_ITS | Encounter Summary ---
Author Organization [facility] Address [address] [place] [address] Care Team Providers Care Dental Amalgam Processor Name Role Phone Maximino William MD Primary Care Provider [phone] Encounter Details Date Type Department Care Team (Late Contact Info) Description 04/06/2024 Scanned Document [facility] [address] [phone] Chelsey Griffith, ELIEZER [address] [place], [place] [phone] Social History Tobacco Use Types Packs/Day Years [...] Encounters Date Type Department Care Team (Late Contact Info) Description 08/08/2025 9:15 AM EST Appointment [facility]GI [address] [phone] Collette Hall MD [address] [place] [address] 08/17/2025 10:00 AM EST Procedure visit MG PAIN MGMT [id number] [address] [facility] [address] [place] [address] Nash Reyes MD [address] [address] 09/04/2025 3:30 PM EST Office Visit [facility] Neurosurgery [place] 35 [facility] [address] [place] [address] Carmen Mcdaniel, PA-C [address] [address] documented as of this encounter Visit Diagnoses Not on filedocumented in this encounter Care Teams Dental Amalgam Processor Relationship Specialty Start Date End Date Maximino William MD [address] [facility] [place] [address] PCP - General Internal Medicine 08/04/16 documented as of this encounter
--- OUTSIDE RECORDS SUMMARY | 2025-08-02 18:25 | XMS_ITS | Encounter Summary ---
Author Organization [facility] Address [address] [place] [address] Care Team Providers Care Occupational Therapy Program Director Name Role Phone Maximino William MD Primary Care Provider [phone] Bill Quintero MD Unavailable Encounter Details Date Type Department Care Team (Late st Contact Info) Description 04/30/2022 Scanned Document [facility] [address] [facility] [address] [place] [phone] Collette Hall MD [address] [place] [address] Social History Tobacco Use Types Packs/Day Years [...] suspected to have Coronavirus/COVID-19? No / Unsure 04/19/2022 9:05 AM EDT documented as of this encounter Progress Notes * Collette Hall MD - 04/30/2022 1:15 PM EDT Fyi - please ensure patient is notified that results from EGD are negative for infections, autoimmune disease, cancer, etc. They can follow up as needed. documented in this encounter Plan of Treatment Upcoming Encounters Date Type Department Care Team (Late st Contact Info) Description 08/08/2025 9:15 AM EST Appointment [facility]GI [address] [place] [address] Collette Hall MD [address] [place] [address] 08/17/2025 10:00 AM EST Procedure visit [facility] PAIN MGMT [id number] [address] [place] [phone] Nash Reyes MD [address] [phone] 09/04/2025 3:30 PM EST Office Visit [facility] Neurosurgery [place] 35 [facility] [address] [place] [phone] Carmen Mcdaniel PA-C [address] [address] documented as of this encounter Procedures Procedure Name Priority Date/Time Associated Diagnosis Comments PATHOLOGY REPORT 04/30/2022 1:15 PM EDT documented in this encounter Results * PATHOLOGY REPORT (04/30/2022 1:15 PM EDT) us Collette Hall MD PATHOLOGY/CYTOLOGY ORDERABLES Fi nal Result documented in this encounter Visit Diagnoses Not on filedocumented in this encounter Care Teams Occupational Therapy Program Director Relationship Specialty Start Date End Date Maximino William MD [address] [place] [address] PCP - General Internal Medicine 08/04/16 Bill Quintero MD [address] [place] [phone] Specialty Food Products Supervisor Cardiovascular Disease 07/27/18 documented as of this encounter
--- OUTSIDE RECORDS SUMMARY | 2025-08-02 18:25 | XMS_ITS | Encounter Summary ---
Author Organization [facility] Address [address] [place] [address] Care Team Providers Care Director Part Name Role Phone Maximino William MD Primary Care Provider [phone] Bill Quintero MD Unavailable Encounter Details Date Type Department Care Team (Late st Contact Info) Description 10/14/2017 Scanned Document [facility] [place] 35 [facility] [place] [facility] [address] [place] [address] Walter Garcia MD 35 [facility] [place] [address] [place] [address] Social History Tobacco Use Types Packs/Day Years [...] Info) Description 08/08/2025 9:15 AM EST Appointment [address] [phone] Collette Hall MD [address] [place] [address] 08/17/2025 10:00 AM EST Procedure visit MG PAIN MGMT [id number] 65 [facility] [address] [place] [address] Nash Reyes MD [address] [address] 09/04/2025 3:30 PM EST Office Visit [facility] Neurosurgery [place] 35 [facility] [place] [facility] [address] [place] [phone] Carmen Mcdaniel PA-C [address] [address] documented as of this encounter Visit Diagnoses Not on filedocumented in this encounter Care Teams Director Part Relationship Specialty Start Date End Date Maximino William MD [address] [place] [address] PCP - General Internal Medicine 08/04/16 Bill Quintero MD [address] [place] [phone] Bowling Ball Molder Cardiovascular Disease 07/27/18 documented as of this encounter
--- OUTSIDE RECORDS SUMMARY | 2025-08-02 18:25 | XMS_ITS | Clinical Summary ---
Author Organization Formerly [facility] Address [address] [place] [address] Care Team Providers Care Music Industry Intern Name Role Phone Maximino William MD Primary Care Provider [phone] Allergies Active Allergy Reactions Criticality Noted Date Comments Adhesives/Tape Rash/Dermatitis Medium 06/15/2020 Aspergillus Other (See Comments) Low 07/29/2017 Watery eyes and runny nose Other reaction(s): Other Watery eyes and runny nose Wound Dressing Adhesive Rash/Dermatitis Medium 020 Trichophyton GI Intolerance/Nausea/V omiting Medium 01/27/2017 Watery eyes and runny nose Medications pravastatin (PRAVACHOL) 20 MG tablet Take 1 tablet (20 mg total) by mouth every morning. 6 Active buPROPion (WELLBUTRIN XL) 150 MG 24 hr tablet Take 1 tablet (150 mg total) by mouth every morning. WITH 300 mg TAB 6 Active cyanocobalamin (VITAMIN B-12) 1000 MCG tablet Take 1 tablet (1,000 mcg total) by mouth daily. Active Multiple Vitamin (MULTIVITAMIN) tablet Take 1 tablet by mouth daily. Active mirtazapine (REMERON) 15 MG tablet Take 1 tablet (15 mg total) by mouth as needed. Active buPROPion (WELLBUTRIN XL) 300 MG 24 hr tablet Take 1 tablet (300 mg total) by mouth every morning. WITH 150 mg TAB 8 Active SUMAtriptan succinate (IMITREX STATDOSE) 6 MG/0.5ML injection as needed. 9 Active torsemide (DEMADEX) 100 MG tablet Take 1 tablet (100 mg total) by mouth 2 (two) times a day in the morning and the early evening.. 0 Active spironolactone (ALDACTONE) 25 MG tablet Take 1 tablet (25 mg total) by mouth every morning. 9 Active metoPROLOL SUCCINATE (TOPROL-XL) 25 MG 24 hr tablet 1 tablet (25 mg total) every morning. 2 Active potassium chloride (KLOR-CON M20) 20 MEQ tablet Take 1 tablet (20 mEq total) by mouth 2 (two) times a day. 2 Active Probiotic Product (PROBIOTIC DAILY PO) Take 1 tablet by mouth daily. Active allopurinol (ZYLOPRIM) 100 mg tablet Take 1 tablet (100 mg total) by mouth daily. 2 Active FLUOXETINE HCL PO Take 40 mg by mouth daily. 3 Active colchicine (COLCRYS) 0.6 mg tablet Take 0.5 tablets (0.3 mg total) by mouth as needed. 5 Active Farxiga 10 MG tablet 1 tablet (10 mg total). 4 Active traZODone (DESYREL) 50 MG tablet 1 tablet (50 mg total) nightly. 4 Active baclofen (LIORESAL) 10 MG tabletIndications:M uscle spasticity,Cervical dystonia,Postlamine ctomy syndrome, lumbar region Take 1 tablet (10 mg total) by mouth 2 (two) times a day. 60 tablet 5 Active methocarbamol (ROBAXIN) 750 MG tabletIndications:M uscle spasticity,Cervical dystonia Take 1 tablet (750 mg total) by mouth 3 (three) times a day as needed for muscle spasms. TAKE 1 TABLET THREE TIMES A DAY NEEDED FOR MUSCLE SPASMS 270 tablet 5 Active gabapentin (NEURONTIN) 100 MG capsuleIndications: Degeneration of intervertebral disc of lumbar region with discogenic back pain TAKE 1 CAPSULE THREE TIMES A DAY 90 capsule 11 5 Active plecanatide (TRULANCE) 3 MG tabletIndications:C onstipation, unspecified constipation type Take 1 tablet (3 mg total) by mouth daily. 30 tablet 3 5 Active famotidine (PEPCID) 40 MG tabletIndications:U lcer of esophagus without bleeding Take 1 tablet (40 mg total) by mouth 2 (two) times a day. 180 tablet 3 5 Active nystatin (MYCOSTATIN) 019057 UNIT/ML suspensionIndicatio ns:Candidal esophagitis (HCC) Take 5 mL (500,000 Units total) by mouth 4 (four) times a day. 200 mL 5 Active OMEprazole (PriLOSEC) 40 MG capsuleIndications: Ulcer of esophagus without bleeding Take 1 capsule (40 mg total) by mouth 2 (two) times a day before meals. 180 capsule 3 5 Active Active Problems Problem Noted Date Diagnosed Date Thoracic myelopathy 04/07/2025 Pre-procedural examination 04/07/2025 Muscle spasm of back 07/21/2023 Cervical dystonia 01/13/2023 Presence of intrathecal pump 07/08/2022 Gout 07/08/2022 Medication management 04/15/2022 Gastroesophageal reflux disease 03/27/2022 Assessment & Plan (03/27/2022 8:52 AM EDT): Continue famotidine 40 mg twice daily Patient was advised of lifestyle modifications to prevent symptoms: small frequent meals, avoid skipping meals, avoid laying supine immediately after eating avoid eating 2 hrs prior to bedtime and elevate head of bed at night Avoid/limit: NSAIDs, tobacco, alcohol, chocolate, peppermint, caffeine, greasy/spicy/acidic foods, citrus and tomato. Ulcer of esophagus without bleeding 03/27/2022 Assessment & Plan (03/27/2022 8:52 AM EDT): Proceed with endoscopy for further assessment The risks, benefits, timing, and alternatives to the procedure were carefully explained to the patient. The risks include but are not limited to perforation, bleeding, infection, respiratory compromise and . All questions were answered. Chronic low back pain 12/27/2021 S/P insertion of intrathecal pump 08/14/2021 Dysphagia 07/08/2021 Assessment & Plan (03/27/2022 8:52 AM EDT): Patient will proceed with endoscopy with dilation for further assessment Assessment & Plan (07/08/2021 11:56 AM EST): We will proceed with endoscopy for further assessment. The risks, benefits, timing, and alternatives to the procedure were carefully explained to the patient. The risks include but are not limited to perforation, bleeding, infection, respiratory compromise and . All questions were answered. History of colon polyps 07/08/2021 Assessment & Plan (03/27/2022 8:53 AM EDT): Aware of colonoscopy recall Assessment & Plan (07/08/2021 11:56 AM EST): Proceed with a colonoscopy for further assessment A colonoscopy will be scheduled based on current indication. The indications, prep, alternatives and the procedure were thoroughly explained. There is no contraindication to colonoscopy. All questions were answered. The potential risks including but not limited to bleeding, infection, and perforation were also explained. Change in bowel habits 07/08/2021 Assessment & Plan (03/27/2022 8:53 AM EDT): Continue Linzess 145 mcg as needed Discussed patients diet and suggested changes, such as, increasing fiber with more fruits, veggies, or supplements. Pt should also increase fluid intake to at least 60 oz of water or water based drinks daily. We discussed different pharmaceutical options and their risks, benefits, and how to correctly take them and stay consistent. Disclaimer: Portions of this note were dictated by speech recognition. Minor errors in environmental project manager may be present Assessment & Plan (07/08/2021 11:56 AM EST): Increase Linzess 245 mcg daily Discussed patients diet and suggested changes, such as, increasing fiber with more fruits, veggies, or supplements. Pt should also increase fluid intake to at least 60 oz of water or water based drinks daily. We discussed different pharmaceutical options and their risks, benefits, and how to correctly take them and stay consistent. Disclaimer: Portions of this note were dictated by speech recognition. Minor errors in environmental project manager may be present Sacroiliac joint dysfunction of both sides 05/13 Heart failure 11/09/2020 Cervical stenosis of spine 05/23/2020 Acquired spondylolisthesis 03/13/2020 Pain of both hip joints 02/13/2020 H/O pericardiectomy 09/06/2019 Chronic constrictive idiopathic pericarditis CHF (congestive heart failur e), NYHA class I, acute on chronic, combined 07/23/2019 Acute renal failure (ARF) 05/01/2019 Shortness of breath 05/01/2019 Ascending aortic aneurysm 04/18/2019 Overview (05/13/2021): 4.6 cm Chronic diastolic congestive heart failure 04/18 Chronic pain disorder 04/18/2019 Major depressive disorder 04/18/2019 FLAKO (obstructive sleep apnea) 04/18/2019 Muscle spasticity 01/17/2019 Cervical spinal stenosis 11/24/2018 Neural foraminal stenosis of cervical spine 07/01 Facet arthritis of cervical region 07/02/2017 Cervical stenosis of spinal canal 07/02/2017 Aftercare following surgery 01/27/2017 Cervicalgia 01/27/2017 DDD (degenerative disc disease), cervical 2015 Cervical spondylosis without myelopathy 04/16/20 16 Postlaminectomy syndrome, lumbar region 11/17/19 15 Neuralgia, neuritis, and radiculitis, unspecifie d 11/16/2014 Lumbosacral spondylosis without myelopathy 11/16 Hypertension 11/16/2014 DDD (degenerative disc disease), lumbosacral Resolved Problems Problem Noted Date Diagnosed Date Resolved Date Encounter for colonoscopy du e to history of adenomatous colonic polyps 03/15/2025 04/17/2025 Encounters Date Type Department Care Team Description 06/27/2025 9:15 AM EDT Office Visit [facility] [id number] 35 [facility] [address] [place] [address] Nash Reyes MD Sacroiliac dysfunction (Primary Dx); Chronic intractable pain; Central sensitization to pain 05/09/2025 Scanned Document [facility] [address] [place] [address] Collette Hall MD from Last 3 Months Immunizations Immunization Administration Dates Next Due Covid-19 mRNA Primary Series Vaccine - Moderna 0.5 mL Full Dose 11/25/2020,10/28/2020 Influenza High-Dose Quadrivalent,(FLUZONE HIGH-DOSE), Perservative Free IM 0.7 mL 65 years and older 05/27/2022,05/29/2021 Influenza Inactivated/Split Preservative Free IM 05/27/2020,06/29/2018 Influenza Virus Trivalent Sp lit Vaccine (MDV) IM 05/27/2020,06/02/2017,06/08/2014 Influenza, Quadrivalent (FLU ARIX, AFLURIA, FLULAVAL, FLUZONE) Preservative Free IM 06/10/2019 Influenza, Trivalent (FLUARI X, AFLURIA, FLULAVAL, FLUZONE) Preservative Free IM 06/16/2018 Influenza, Unspecified 06/16/2018,2016,06/05/2016,06/07,05/31/2013,06/17/2012,06/18/2010 Pneumococcal Conjugate 13-Valent 04/19/2020 Pneumococcal Polysaccharide 23-Valent 05/29/2021 Td 11/08/2004 Tdap 12/18/2022,01/23/2015 Social History Tobacco Use Types Packs/Day Years [...] Orientation Heterosexual (straight) 10/29 2:51 AM EST Last Filed Vital Signs Vital Sign Reading Time Taken Comments Blood Pressure 125/73 06/27/2025 9:05 AM EDT Pulse 56 06/27/2025 9:05 AM EDT Temperature 35.7 C (96.3 F) 12/30/2022 5:00 PM EDT Respiratory Rate 16 12/30/2022 5:00 PM EDT Oxygen Saturation 93% 12/23/2024 10:50 AM EDT Inhaled Oxygen Concentration - - Weight 99.8 kg (220 lb) 06/27/2025 9:05 AM EDT Height 165.1 cm (5' 5 ) 06/27/2025 9:05 AM EDT Body Mass Index 36.61 06/27/2025 9:05 AM EDT Plan of Treatment Upcoming Encounters Date Type Department Care Team (Late st Contact Info) Description 08/08/2025 9:15 AM EST Appointment [facility] [address] [place] [address] Collette Hall MD [address] [place] [address] [phone] 08/17/2025 10:00 AM EST Procedure visit MG PAIN MGMT [id number] [address] [place] [phone] Nash Reyes MD [address] [address] 09/04/2025 3:30 PM EST Office Visit [facility] Neuro[facility] [place] 35 [facility] [address] [place] [phone] Carmen Mcdaniel, PA-C [address] [place] [phone] Health Maintenance Due Date Last Done Comments Advance Care Planning 1955 Hepatitis C Virus Screening 1955 RSV Vaccine 50 years and older and Patients (1 - Risk 50-74 years 1-dose series) 2004 Zoster (Shingles) Vaccine (1 of 2) 2004 Abdominal Aortic Aneurysm (AAA) Screening 12/13/2019 Influenza Vaccine 03/31/2025 05/27/2022, , 05/27/2020, Additional history exists COVID-19 Vaccine ( season) 2025 05/27/2022, 08/20/2021, 11/25/2020, Additional history exists Colonoscopy 10/02/2026 10/02/2021 DTaP/Tdap/Td Vaccines (3 - Td or Tdap) 12/18/2032 12/18/2022, 01/23/2015, 11/08/2004 Pneumococcal Vaccines 50+ Completed 05/29/2021, Chronic Controlled Substance Toxicology Screening Discontinued 01/03/2022, 01/03/2022, 05/28/2021, Additional history exists Chronic Controlled Substance User PDMP Review Discontinued 09/14/2024, 07/13/2023, 08/19/2022, Additional history exists Controlled Substance Agreement Initial and Annual Review Discontinued 03/15/2025, 01/06/2022 Hepatitis B Vaccines Aged Out No long er eligible based on patient's age to complete this topic Medical Devices Implanted Type Area Virtual Assistant Device Identifier Shelf Expiration Date Model / Serial / Lot Pd-31-200 Cage Spinal Dtrax B Cervical Ti Sterl - [id number] Implanted:Qty: 1 on 11/24/2018 by Walter Garcia MD at [facility] Cage N/A: Spine Cervical [employer] 09/15/2020 PD-31-200 / / [id number] Pd-31-200 Cage Spinal Dtrax B Cervical Ti Sterl - [id number] Implanted:Qty: 1 on 11/24/2018 by Walter Garcia MD at [facility] Cage [employer] 09/15/2020 PD-31-200 / / [id number] Pd-32-301 Screw Bone Dtrax Ti Sterl - [id number] Implanted:Qty: 1 on 11/24/2018 by Walter Garcia MD at [facility] Screw N/A: Spine Cervical Arter[employer] 09/09/2020 PD-32-301 / / [id number] Pd-32-301 Screw Bone Dtrax Ti Sterl - [id number] Implanted:Qty: 1 on 11/24/2018 by Walter Garcia MD at [facility] Screw [employer] 09/09/2020 PD-32-301 / / [id number] Hexalobe Multiscrew Implanted:Qty: 1 on 12/30/2022 by José Manuel Fatima MD at [facility] Screw Left: Hand [employer] [id number] / / Dx--100 System Spinal Fixation Dtrax - [id number] Implanted:Qty: 1 on 11/24/2018 by Walter Garcia MD at [facility] Spine N/A: Spine Cervical [employer] 08/25/2020 DX-22-100 / / [id number] Graft Bone Accell Dispersed Dbm 2.5ml Putty Void Filler - [id number] Implanted:Qty: 1 on 11/24/2018 by Walter Garcia MD at [facility] Tissue N/A: Spine Cervical [employer] 10/28/2019 / [id number] / [id number] Graft Bone Accell Evo3 Dbm 10ml Putty - [id number] Implanted:Qty: 1 on 05/23/2020 by Walter Garcia MD at [facility] Tissue [facility] 02/25/2021 / [id number] / [id number] Envelope Absorbable Lg 3.35x3in Polyarylate Minocycline - [id number] Implanted:Qty: 1 on 12/26/2021 by Dani Pino MD at [facility] Tissue [employer] [id number] / / [id number] Filler Bone Void 10cc [id number] Btcp Type-1 Collagen Intgr - [id number] Implanted:Qty: 1 on 05/23/2020 by Walter Garcia MD at [facility] Void Filler [employer] 02/25/2022 [id number] / / [id number] 4.0x30mm Screws Implanted:Qty: 4 on 05/23/2020 by Walter Garcia MD at [address], INC. [id number] / / 3.5x12mm Screws Implanted:Qty: 8 on 05/23/2020 by Walter Garcia MD at [facility] DANIAL INSTRUMENTS - DIV STRY [id number] / / Set Screws Implanted:Qty: 12 on 05/23/2020 by Walter Garcia MD at [facility] [employer] [id number] / / 4.0x120 Shabbir Implanted:Qty: 2 on 05/23/2020 by Walter Garcia MD at [facility] N/A: Spine Cervical [employer] [id number] / / Medtronic 8780 Implanted:Qty: 1 on 12/26/2021 by Dani Pino MD at [facility] [employer] 10/02/2023 MEDTRONIC 8780 / [id number] / [id number] Medtronic Synchromed Ii [id number] Implanted:Qty: 1 on 12/26/2021 by Dani Pino MD at [facility] [employer] 03/27/2023 MEDTRONIC SYNCHROMED II / [id number] / Medtronic 8785 Implanted:Qty: 1 on 12/26/2021 by Dani Pino MD at [facility] [employer] 03/15/2022 MEDTRONIC / / [id number] 0.8mmcurvedmedial/La teralplate Implanted:Qty: 1 on 12/30/2022 by José Manuel Fatima MD at [facility] Left: Hand Description:[id number] 0.8mmcurvedmedial/La teralplate Implanted:Qty: 1 on 12/30/2022 by José Manuel Fatima MD at [facility] Left: Hand Description:[id number] [id number] Hexalobemultiscrew Implanted:Qty: 1 on 12/30/2022 by José Manuel Fatima MD at [facility] Left: Hand [id number] [id number] Hexalobemultiscrew Implanted:Qty: 1 on 12/30/2022 by José Manuel Fatima MD at [facility] Left: Hand [id number] [id number] Hexalobelagscrew Implanted:Qty: 1 on 12/30/2022 by José Manuel Fatima MD at [facility] Left: Hand [id number] [id number] Hexalobelagscrew Implanted:Qty: 1 on 12/30/2022 by José Manuel Fatima MD at [facility] Left: Hand [id number] [id number] Hexalobelagscrew Implanted:Qty: 1 on 12/30/2022 by José Manuel Fatima MD at [facility] Left: Hand [id number] [id number] Hexalobelagscrew Implanted:Qty: 1 on 12/30/2022 by José Manuel Fatima MD at [facility] Left: Hand Explanted Type Area Virtual Assistant Device Identifier Shelf Expiration Date Model / Serial / Lot [id number] Hexalobemultiscrew Explanted:Qty: 1 on 12/30/2022 by José Manuel Fatima MD at [facility] Left: Hand [id number] [id number] Hexalobemultiscrew Explanted:Qty: 1 on 12/30/2022 by José Manuel Fatima MD at [facility] Left: Hand Procedures Procedure Name Priority Date/Time Associated Diagnosis Comments MRI EXTERNAL RESULT Routine 06/23/2025 1 0:57 AM EDT CYTOLOGY, NON-MANUFACTURING ENGINEERING INTERN Routine 05/09/2025 3:0 4 PM EDT PATHOLOGY Routine 05/09/2025 2:55 PM EDT POCT DRUG SCREEN PANEL Routine 2 9:12 AM EDT Medication management HX GASTROENTEROLOGY COLONOSCOPY-SCAN Routine 10/02/2021 from Last 3 Months or Most Recently Relevant to Health Maintenance Results * MRI External Result (06/23/2025 10:57 AM EDT) Anatomical Region Laterality Modality Magnetic Resonan ce us External Provider MD DESAI MRI ORDERABLES Final Re sult * Cytology, Non-Sex Therapist (05/09/2025 3:04 PM EDT) us Ali Hemacha MD PATHOLOGY/CYTOLOGY ORDERABLES Fi nal Result * Pathology (05/09/2025 2:55 PM EDT) Collette Hall MD PATHOLOGY/CYTOLOGY ORDERABLES Ed ited Result - Final * POCT Drug Screen Panel (01/03/2022 9:12 AM EDT) (AMP) Amphetamine POC neg (CHANEL) Cocaine POC neg (THC) Cannabidiol POC neg (BZO) Benzodiazepines POC pos (TCA) Tricyclics POC neg (BAR) Barbiturates POC neg (MDMA) Methamphetamine POC neg (OPI) Morphine, Codeine, Hydromorphine, Hydrocodone, Heroin neg (PCP) Phencyclidine POC neg (OXY) Oxycodone, Hydrocodone POC pos (PPX) Propoxyphene, POC Negative Negative Buprenorphine POC neg Urine 01/03/2022 9:12 AM EDT Dani Pino MD POINT OF CARE TEST ORDERABLE S Final Result * HX GASTROENTEROLOGY COLONOSCOPY-SCAN (10/02/2021) Result [facility] External Provider HX AMB PROCEDURES Final Res ult from Last 3 Months or Most Recently Relevant to Health Maintenance Insurance [facility] MEDICARE MEDICARE PART A & B [facility] MEDICARE [facility] MEDICARE [facility] MEDICARE [address] Advance Directives * Full Code (Latest Code Status on File) Date Activated Date Inactivated Comments 12/26/2021 11:58 AM 12/30/2022 12:04 PM * Full Code Date Activated Date Inactivated Comments 08/14/2021 12:37 PM 12/26/2021 11:40 AM * Full Code Date Activated Date Inactivated Comments 05/23/2020 6:03 PM 08/14/2021 6:58 AM * Full Code Date Activated Date Inactivated Comments 05/23/2020 6:52 AM 05/23/2020 6:03 PM * Full Code Date Activated Date Inactivated Comments 11/24/2018 9:25 PM 05/23/2020 6:45 AM Care Teams Music Industry Intern Relationship Specialty Start Date End Date Maximino William MD [address] [place] [address] PCP - General Internal Medicine 08/04/16
--- OUTSIDE RECORDS SUMMARY | 2025-08-02 18:25 | XMS_ITS | Encounter Summary ---
Author Organization Formerly [facility] Address [address] [place] [address] Care Team Providers Care Property Supervisor Name Role Phone Maximino William MD Primary Care Provider [phone] Bill Quintero MD Unavailable Encounter Details Date Type Department Care Team (Late st Contact Info) Description 06/23/2023 Scanned Document [facility] [address] [phone] Ky Carrera PA [address] [phone] Social History Tobacco Use Types Packs/Day Years [...] Description 08/08/2025 9:15 AM EST Appointment [facility] [address] [place] [address] Collette Hall MD [address] [place] [address] 08/17/2025 10:00 AM EST Procedure visit MG PAIN MGMT [id number] [address] [phone] Nash Reyes MD 35 [facility] 5 [place] [address] 09/04/2025 3:30 PM EST Office Visit [facility] [place] 35 [facility] [address] [place] [address] Carmen Mcdaniel, PA-C [address] [address] documented as of this encounter Visit Diagnoses Not on filedocumented in this encounter Care Teams Property Supervisor Relationship Specialty Start Date End Date Maximino William MD [address] [place] [address] PCP - General Internal Medicine 08/04/16 Bill Quintero MD [address] [place] [phone] Senior Account Clerk Cardiovascular Disease 07/27/18 documented as of this encounter
--- OUTSIDE RECORDS SUMMARY | 2025-08-02 18:25 | XMS_ITS | Encounter Summary ---
Author Organization [facility] Address [address] [place] [address] Care Team Providers Care Envelope Machine Operator Name Role Phone Maximino William MD Primary Care Provider [phone] Encounter Details Date Type Department Care Team (Late st Contact Info) Description 11/16/2023 Scanned Document [facility] [address] [phone] Victor M Armando, DO [address] [phone] Social History Tobacco Use Types Packs/Day Years [...] Info) Description 08/08/2025 9:15 AM EST Appointment [facility] [address] [address] Collette Hall MD [address] [place] [address] 08/17/2025 10:00 AM EST Procedure visit MG PAIN MGMT [id number] [address] [facility] [address] [facility] [address] [place] [address] Nash Reyes MD [address] [address] 09/04/2025 3:30 PM EST Office Visit [facility] [place] 35 [facility] [address] [place] [phone] Carmen Mcdaniel, PADadaC [address] [address] documented as of this encounter Procedures Procedure Name Priority Date/Time Associated Diagnosis Comments MEDICATION REFILL REQUESTS Routine 11/16/2023 documented in this encounter Results * MEDICATION REFILL REQUESTS (11/16/2023) us Victor M Armando DO HX AMB PROCEDURES NO RESULT S ROUTING Final Result documented in this encounter Visit Diagnoses Not on filedocumented in this encounter Care Teams Envelope Machine Operator Relationship Specialty Start Date End Date Maximino William MD [address] [facility] [place] [address] PCP - General Internal Medicine 08/04/16 documented as of this encounter
--- OUTSIDE RECORDS SUMMARY | 2025-08-02 18:25 | XMS_ITS | Encounter Summary ---
Author Organization [facility] Address [address] [place] [address] Care Team Providers Care Dredge Hand Name Role Phone Maximino William MD Primary Care Provider [phone] Encounter Details Date Type Department Care Team (Late st Contact Info) Description 07/02/2023 Scanned Document [facility] [address] [phone] Victor M Gomez MD [address] [place] [phone] Social History Tobacco Use Types Packs/Day Years [...] Description 08/08/2025 9:15 AM EST Appointment [facility] [address] [address] Collette Hall MD [address] [place] [address] 08/17/2025 10:00 AM EST Procedure visit MG PAIN MGMT [id number] [address] [phone] Nash Reyes MD [address] [address] 09/04/2025 3:30 PM EST Office Visit [facility] Neurosurgery [place] 35 [facility] [address] [place] [phone] Carmen Mcdaniel, PA-C [address] [address] documented as of this encounter Visit Diagnoses Not on filedocumented in this encounter Care Teams Dredge Hand Relationship Specialty Start Date End Date Maximino William MD [facility] [place] [address] PCP - General Internal Medicine 08/04/16 documented as of this encounter
--- OUTSIDE RECORDS SUMMARY | 2025-08-02 18:25 | XMS_ITS | Encounter Summary ---
Author Organization Formerly [facility] Address [address] [place] [address] Care Team Providers Care Corporate Administrator Name Role Phone Maximino William MD Primary Care Provider [phone] Bill Quintero MD Unavailable Encounter Details Date Type Department Care Team (Late st Contact Info) Description 08/19/2021 Scanned Document [facility] Neurosurgery [place] 35 [facility] [address] [place] [phone] Blanka Ruiz MA 35 [facility] [address] [place] [address] Social History Tobacco Use Types Packs/Day Years Used Date Smoking Tobacco: Former Cigarettes 1 05 31 910 1976 Smokeless Tobacco: Never Alcohol Use Standard [...] have Coronavirus / COVID-19? No / Unsure 08/22/2021 8:46 AM EST documented as of this encounter Plan of Treatment Upcoming Encounters Date Type Department Care Team (Late st Contact Info) Description 08/08/2025 9:15 AM EST Appointment [facility] [address] [place] [address] Collette Hall MD [address] [place] [address] 08/17/2025 10:00 AM EST Procedure visit MG PAIN MGMT [id number] 65 [facility] [address] [place] [address] Nash Reyes MD [address] [address] 09/04/2025 3:30 PM EST Office Visit [facility] Neuro[facility] [place] 35 [facility] [address] [place] [address] Carmen Mcdaniel, PA-C [address] [address] documented as of this encounter Visit Diagnoses Not on filedocumented in this encounter Care Teams Corporate Administrator Relationship Specialty Start Date End Date Maximino William MD [address] [place] [address] PCP - General Internal Medicine 08/04/16 Bill Quintero MD [address] [place] [phone] Car Sander Cardiovascular Disease 07/27/18 documented as of this encounter
--- OUTSIDE RECORDS SUMMARY | 2025-08-02 18:25 | XMS_ITS | Encounter Summary ---
Author Organization [facility] Address [address] [place] [address] Care Team Providers Care Audio/Video Engineer Name Role Phone Maximino William MD Primary Care Provider [phone] Bill Quintero MD Unavailable Maximino William MD Primary Care Provider Encounter Details Date Type Department Care Team (Late st Contact Info) Description 06/05/2016 Scanned Document [address] [facility] [address] [place] [phone] Provider, Generic Social History Tobacco Use Types [...] Description 08/08/2025 9:15 AM EST Appointment [facility] [address] [address] Collette Hall MD [address] [place] [address] 08/17/2025 10:00 AM EST Procedure visit MG PAIN MGMT [id number] 65 [facility] [address] [place] [phone] Nash Reyes MD [address] [address] 09/04/2025 3:30 PM EST Office Visit [facility] Neurosurgery [place] 35 [facility] [address] [place] [address] Carmen Mcdaniel, PA-C [address] [phone] documented as of this encounter Visit Diagnoses Not on filedocumented in this encounter Care Teams Audio/Video Engineer Relationship Specialty Start Date End Date Maximino William MD [address] [place] [address] PCP - General Internal Medicine 08/04/16 Maximino William MD [address] [place] [address] PCP - General 08/03/16 Bill Quintero MD [address] [place] [address] Powerhouse Oiler Cardiovascular Disease 07/27/18 documented as of this encounter
--- OUTSIDE RECORDS SUMMARY | 2025-08-02 18:25 | XMS_ITS | Encounter Summary ---
Author Organization [facility] Address [address] [place] [address] Care Team Providers Care Engine Builder Name Role Phone Maximino William MD Primary Care Provider [phone] Encounter Details Date Type Department Care Team (Late Contact Info) Description 11/16/2023 Scanned Document [facility] [address] [phone] Ky Carrera PA [address] [phone] Social History Tobacco Use Types Packs/Day Years [...] Info) Description 08/08/2025 9:15 AM EST Appointment [facility] [address] [address] Collette Hall MD [address] [place] [address] 08/17/2025 10:00 AM EST Procedure visit MG PAIN MGMT [id number] [address] [facility] [address] [facility] [address] [place] [address] Nash Reyes MD [address] [address] 09/04/2025 3:30 PM EST Office Visit [facility] Neurosurgery [place] 35 [facility] [address] [place] [phone] Carmen Mcdaniel PADadaC [address] [address] documented as of this encounter Procedures Procedure Name Priority Date/Time Associated Diagnosis Comments IMAGING-SCAN Routine 11/16/2023 documented in this encounter Results * IMAGING-SCAN (11/16/2023) Anatomical Region Laterality Modality Other us Ky PAYNE HX AMB PROCEDURES Final Result documented in this encounter Visit Diagnoses Not on filedocumented in this encounter Care Teams Engine Builder Relationship Specialty Start Date End Date Maximino William MD [address] [place] [address] PCP - General Internal Medicine 08/04/16 documented as of this encounter
--- OUTSIDE RECORDS SUMMARY | 2025-08-02 18:25 | XMS_ITS | Clinical Summary ---
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 Hypertension 04/18/2019 Cervical spondylosis without myelopathy 04/18/20 Chronic pain syndrome 04/18/2019 Major depressive disorder 04/18/2019 Ascending aortic aneurysm 04/18/2019 Overview: 4.6 cm [address] scan at [facility] 4.5 cm without contrast FLAKO (obstructive [...] Risk Assessment 12/13/2019 COVID-19 Vaccine ( season) 2025 05/27/2022, 08/20/2021, 11/25/2020, Additional history exists Influenza Vaccine (#1) 2025 , 05/29/2021, 05/27/2020, Additional history exists BMI Counseling 07/19/2025 07/19/2024, 10/2023, 06/23/2023, Additional history exists RSV Adult > [...] this topic Medical Devices Implanted Type Area Tank Pumper Panelboard Device Identifier Shelf Expiration Date Model / Serial / Lot Device Angio-Seal Vip .035in 70cm 6fr Valuelink [employer] - [id number] - [id number] Implanted:2018 at [facility] (Quantity not on file) [employer] [id number] / / Device Angio-Seal Vip .038in 70cm 8fr Hemostatic Closure - [id number] - [id number] Implanted:2020 at [facility] (Quantity not on file) [employer] [id number] / / System Cardiac Cardiomems Pulmonary Artery Sensor Delivery - [id number] - [id number] Implanted:Qty: 1 on 01/29/2021 at [facility] [employer] CM PATIENT SYSTEM / / Explanted Type Area Tank Pumper Panelboard Device Identifier Shelf Expiration Date Model / Serial / Lot Hemasorb 4 Gm - [id number] - [id number] Explanted:Qty: 1 on 08/16/2019 by Jesse Bautista MD at [facility] N/A: Chest Wall [employer] 02/27/2022 OS-[id number] / [id number] Advance Directives For more information, please contact: [phone] Documents on File Type Date Recorded Patient Certified Executive Chef Expl anation Advance Directive and Living Will 09/19/2021 10:52 AM MAXIMINO WILLIAM [phone] Power of Chief Nursing Officer 08/02/2019 12:00 AM Power of Chief Nursing Officer 08/02/2019 Sent To Do cument Corrections Latest [...] way: discussion with patient . Care Teams Hose Tender Relationship Specialty Start Date End Date Maximino William MD [address] [facility] [place] [address] PCP - General Internal Medicine 07/20/17
--- OUTSIDE RECORDS SUMMARY | 2025-08-02 18:25 | XMS_ITS | Encounter Summary ---
Author Organization [facility] Address [address] [place] [address] Care Team Providers Care Customer Care Coordinator Name Role Phone Maximino William MD Primary Care Provider Maximino William MD Unavailable VíctornellTundeomar Unavailable Jesus Manuel Duncan Unavailable Santhosh Lockhart Unavailable Unavailable Eleuterio Weathers Unavailable Hemanita Collette Unavailable Encounter Details Date Type Department Care Team (Late st Contact Info) Description 06/23/2025 Results Follow-Up [facility] [address] [place] [address] Víctornell Tundear [address] [place], [place] [phone] UNSPECIFIED DIAGNOSTIC PROCE Social History Tobacco Use [...] / family Once a week 10/31/2024 Attend yazidi services Never 2024 Club Membership No 10/31/2024 [...] any clubs o r organizations such as mormon groups, unions, athletic groups, or school groups? [...] Description 09/19/2025 9:45 AM EST [facility] [address] [place] [phone] Maximino William MD [address] [place] [address] 6 months Follow up, dyslipidemia, Hypertension. documented [...] on filedocumented in this encounter Care Teams Customer Care Coordinator Relationship Specialty Start Date End Date Maximino William MD Yuriy [facility] [place] [address] PCP - General 04/06/23 Maximino William MD [address] [facility] [address] PCP - Backup PCP Internal Medicine 09/30/23 Bill Quintero [address] [place] [address] Cardiology 03/23/24 Jesus Manuel Duncan [address] [place] [address] Nephrology 03/23/24 Santhosh Lockhart [address] [place] [address] Urology 03/23/24 Eleuterio Weathers 152 [facility] [address], [place] [address] Optometry 10/31/24 Collette Hall 428 [facility] [address] [place] [address] Gastroenterology 03/16/25 documented as of this encounter
--- OUTSIDE RECORDS SUMMARY | 2025-08-02 18:26 | XMS_ITS | Encounter Summary ---
Author Organization [facility] Address [address] [place] [address] Care Team Providers Care Instrument Technician Apprentice Name Role Phone Maximino William MD Primary Care Provider [phone] Encounter Details Date Type Department Care Team (Late st Contact Info) Description 12/01/[address] [facility] Neurosurgery [place] 35 [facility] 5 [place] [address] Joy Hoskins MA 35 [place] [address] Social History Tobacco Use Types Packs/Day Years [...] Description 08/08/2025 9:15 AM EST Appointment [facility] [address] [address] Collette Hall MD [address] [place] [address] 08/17/2025 10:00 AM EST Procedure visit MG PAIN MGMT [id number] [address] [phone] Nash Reyes MD [address] [address] 09/04/2025 3:30 PM EST Office Visit [facility] Neurosurgery [place] 35 [facility] [address] [place] [phone] Carmen Mcdaniel PADadaC [address] [address] documented as of this encounter Visit Diagnoses Not on filedocumented in this encounter Care Teams Instrument Technician Apprentice Relationship Specialty Start Date End Date Maximino William MD [address] [place] [address] PCP - General Internal Medicine 08/04/16 documented as of this encounter
--- OUTSIDE RECORDS SUMMARY | 2025-08-02 18:26 | XMS_ITS | Encounter Summary ---
Author Organization [facility] Address [address] [place] [address] Care Team Providers Care Rfid Technician Name Role Phone Maximino William MD Primary Care Provider [phone] Encounter Details Date Type Department Care Team (Late st Contact Info) Description 12/23/2024 Scanned Document [facility] [address] [phone] Victor M Armando, DO [address] [phone] Social History Tobacco Use Types Packs/Day Years [...] Info) Description 08/08/2025 9:15 AM EST Appointment [address] [address] Collette Hall MD [address] [place] [address] 08/17/2025 10:00 AM EST Procedure visit MG PAIN MGMT [id number] [address] [phone] Nash Reyes MD [address] [address] 09/04/2025 3:30 PM EST Office Visit [facility] Neurosurgery [place] 35 [facility] [address] [place] [phone] Carmen Mcdaniel, PA-C [address] [address] documented as of this encounter Visit Diagnoses Not on filedocumented in this encounter Care Teams Rfid Technician Relationship Specialty Start Date End Date Maximino William MD [facility] [place] [address] PCP - General Internal Medicine 08/04/16 documented as of this encounter
== END ==
LOC: HO.PMC 15:25
PROVIDERS: PCP Internal Medicine; Visit Provider Anesthesiology
DX: G89.4 Chronic pain syndrome (principal); Z97.8 Presence of other specified devices; M51.369 Other intervertebral disc degeneration, lumbar region without mention of lumbar back pain or lower extremity pain; M96.1 Postlaminectomy syndrome, not elsewhere classified; M54.2 Cervicalgia; M54.9 Dorsalgia, unspecified; G89.29 Other chronic pain
CPT/HCPCS: 95991; 99213

== ENCOUNTER → 2025-08-02 15:24 | Outpatient (BNVA) | payer MEDICARE, SELFPAY | PROVIDERS: PCP Internal Medicine; Visit Provider Anesthesiology | DX: M51.369 Other intervertebral disc degeneration, lumbar region without mention of lumbar back pain or lower extremity pain (principal); M96.1 Postlaminectomy syndrome, not elsewhere classified; M54.2 Cervicalgia; G89.29 Other chronic pain; Z97.8 Presence of other specified devices | CPT/HCPCS: 95991; 99212 ==